=== PATIENT | male | born 1960 | race Hispanic/Latino ===

== ENCOUNTER 2018-07-17 19:08 | Emergency (ER) | payer OTHER ==
--- NOTE | 2018-07-17 20:39 | EDPHYS ---
Physician Documentation [facility] Name: Dev Evans Age: 57 yrs Sex: Male : 1960 Arrival Date: 07/17/2018 Time: 19:12 Bed 16 Private MD: ED Physician Ankit Bryan HPI: 07/17 20:39 This 57 yrs old Male presents to ER via Ambulatory with complaints of Back jr8 Pain, Leg Pain. 20:39 Patient came in with several complaints today. Stated that he bent over and felt a jr8 sharp pain to left lower back that is not going away. Denies urinary complaints, fevers, or abdominal pain. Stated that he also wants us to look at his legs because of the swelling he has had. Stated that it is chronic but wants to know why it comes and goes . Historical: - Allergies: 19:30 No Known Allergies; jb4 - Home Meds: 19:30 glipizide 10 mg Oral tab [Active]; tribedoce [Active]; aspirin 81 mg Oral chew jb4 [Active]; lisinopril 5 mg Oral tab [Active]; pioglitazone 30 mg oral tab [Active]; hydrochlorothiazide 50 mg Oral tab [Active]; Tradjenta 5 mg oral tab [Active]; Vitamin D2 50,000 unit oral cap [Active]; metformin 1,000 mg Oral tab [Active]; - PMHx: 19:30 Diabetes - NIDDM; Hypertension; Prostate Cancer; Hyperlipidemia; Hernia; jb4 - PSHx: 19:30 Hernia repair; Appendectomy; prostate; jb4 - Immunization history:: Adult Immunizations up to date, Flu vaccine is not up to date. - Social history:: Smoking status: Patient/guardian denies using tobacco, Patient/guardian denies using alcohol. - Ebola Screening: : No symptoms or risks identified at this time. ROS: 20:39 Eyes: Negative for injury, pain, redness, and discharge, ENT: Negative for injury, jr8 pain, and discharge, Neck: Negative for injury, pain, and swelling, Cardiovascular: Negative for chest pain, palpitations, and edema, Respiratory: Negative for shortness of breath, cough, wheezing, and pleuritic chest pain, Abdomen/GI: Negative for abdominal pain, nausea, vomiting, diarrhea, and constipation, Skin: Negative for injury, rash, and discoloration, Neuro: Negative for headache, weakness, numbness, tingling, and seizure. 20:39 Back: Positive for pain at rest, pain with movement, of the left low back. 20:39 MS/extremity: Positive for swelling, of the right leg and left leg. Exam: 20:39 Eyes: Pupils equal round and reactive to light, extra-ocular motions intact. Lids and jr8 lashes normal. Conjunctiva and sclera are non-icteric and not injected. Cornea within normal limits. Periorbital areas with no swelling, redness, or edema. ENT: Nares patent. No nasal discharge, no septal abnormalities noted. Tympanic membranes are normal and external auditory canals are clear. Oropharynx with no redness, swelling, or masses, exudates, or evidence of obstruction, uvula midline. Mucous membranes moist. Neck: Trachea midline, no thyromegaly or masses palpated, and no cervical lymphadenopathy. Supple, full range of motion without nuchal rigidity, or vertebral point tenderness. No Meningismus. Cardiovascular: Regular rate and rhythm with a normal S1 and S2. No gallops, murmurs, or rubs. Normal PMI, no JVD. No pulse deficits. Respiratory: Lungs have equal breath sounds bilaterally, clear to auscultation and percussion. No rales, rhonchi or wheezes noted. No increased work of breathing, no retractions or nasal flaring. Abdomen/GI: Soft, non-tender, with normal bowel sounds. No distension or tympany. No guarding or rebound. No evidence of tenderness throughout. Skin: Warm, dry with normal turgor. Normal color with no rashes, no lesions, and no evidence of cellulitis. Neuro: Awake and alert, GCS 15, oriented to person, place, time, and situation. Cranial nerves II-XII grossly intact. Motor strength 5/5 in all extremities. Sensory grossly intact. Cerebellar exam normal. Normal gait. 20:39 Back: pain, that is mild, of the left low back, ROM is painful, normal spinal alignment noted, CVA tenderness, is absent, vertebral tenderness, is not appreciated. 20:39 Musculoskeletal/extremity: ROM: intact in all extremities, Circulation is intact in all extremities. Sensation intact. DVT Exam: no pain, no tenderness, negative Homans' sign noted on exam, no appreciated bluish discoloration, no erythema, no increased warmth, Patient has mildly swollen lower extremities bilaterally. 2 + edema. Bronzing noted to both legs with varicosities that are not tender . Vital Signs: 19:30 BP 123 / 63; Pulse 79; Resp 16; Temp 98.3; Pulse Ox 100% on R/A; Weight 164.2 kg (R); jb4 Height 5 ft. 4 in. (162.56 cm) (R); Pain 9/10; 20:57 BP 120 / 63; Pulse 76; Resp 16; Pulse Ox 100% on R/A; jb4 19:30 Body Mass Index 62.14 (164.20 kg, 162.56 cm) jb4 MDM: 19:54 Patient medically screened. jr8 20:37 Data reviewed: vital signs, nurses notes, and as a result, I will discharge patient. jr Data interpreted: Pulse oximetry: on room air is 100 %. Interpretation: normal. Counseling: I had a detailed discussion with the patient and/or guardian regarding: the historical points, exam findings, and any diagnostic results supporting the discharge/admit diagnosis, the need for outpatient follow up, a orthopedic surgeon, Vein Specialist. 20:43 ED course: Referred patient to orthopedics for chronic knee pain. Told them to look for [facility] vein specialist for venous insufficiency. Otherwise will threat him for acute back pain . Administered Medications: No medications were administered Disposition: 07/17/18 20:38 Discharged to Home. Impression: Low back pain, Venous Stasis, Stasis Dermatitis. - Condition is Stable. - Discharge Instructions: Back Pain, Adult, Musculoskeletal Pain, Venous Stasis or Chronic Venous Insufficiency, Back Exercises, [id number], Heat Therapy. - Prescriptions for Robaxin 500 mg Oral Tablet - take 2 tablet by ORAL route every 6 hours As needed; 40 tablet. Tylenol- Codeine #3 300-30 mg Oral Tablet - take 2 tablet by ORAL route every 6 hours As needed; 30 tablet. - Medication Reconciliation Form, Thank You Letter, Antibiotic Education, Prescription Opioid Use form. - Follow up: Herman Marino MD; When: 2 - 3 days; Reason: Recheck today's complaints, Continuance of care, Re-evaluation by your physician. - Problem is new. - Symptoms have improved. Addendum: 07/21/2018 21:56 Co-signature as Attending Physician, Ankit Bryan MD. g s Signatures: Bentley Cordoba PA PA jr8 Raymond Rincon, RN RN jb4 Ankit Bryan MD MD Corrections: (The following items were deleted from the chart) 07/17 21:00 20:38 07/17/2018 20:38 Discharged to Home. Impression: Low back pain; Venous Stasis; jb4 Stasis Dermatitis. Condition is Stable. Forms are Medication Reconciliation Form, Thank You Letter, Antibiotic Education, Prescription Opioid Use. Follow up: Herman Marino; When: 2 - 3 days; Reason: Recheck today's complaints, Continuance of care, Re-evaluation by your physician. Problem is new. Symptoms have improved. jr8
--- NOTE | 2018-07-17 20:39 | ER ---
Nurse's Notes [facility] Name: Dev Evans Age: 57 yrs Sex: Male : 1960 Arrival Date: 07/17/2018 Time: 19:12 Bed 16 Private MD: Diagnosis: Low back pain;Venous Stasis;Stasis Dermatitis Presentation: 07/17 19:30 Presenting complaint: Patient states: I am having left lower back pain. Transition of jb4 care: patient was not received from another setting of care. 19:30 Method Of Arrival: Ambulatory jb4 19:30 Onset of symptoms was July 17, 2018. Risk Assessment: Do you want to hurt yourself or jb4 someone else? Patient reports no desire to harm self or others. Initial Sepsis Screen: Does the patient meet any 2 criteria? No. Patient's initial sepsis screen is negative. Does the patient have a suspected source of infection? No. Patient's initial sepsis screen is negative. Care prior to arrival: None. 19:30 Acuity: TAMMI 3 jb4 Historical: - Allergies: 19:30 No Known Allergies; jb4 - Home Meds: 19:30 glipizide 10 mg Oral tab [Active]; tribedoce [Active]; aspirin 81 mg Oral chew jb4 [Active]; lisinopril 5 mg Oral tab [Active]; pioglitazone 30 mg oral tab [Active]; hydrochlorothiazide 50 mg Oral tab [Active]; Tradjenta 5 mg oral tab [Active]; Vitamin D2 50,000 unit oral cap [Active]; metformin 1,000 mg Oral tab [Active]; - PMHx: 19:30 Diabetes - NIDDM; Hypertension; Prostate Cancer; Hyperlipidemia; Hernia; jb4 - PSHx: 19:30 Hernia repair; Appendectomy; prostate; jb4 - Immunization history:: Adult Immunizations up to date, Flu vaccine is not up to date. - Social history:: Smoking status: Patient/guardian denies using tobacco, Patient/guardian denies using alcohol. - Ebola Screening: : No symptoms or risks identified at this time. Screenin:30 Abuse screen: Denies injuries from another. Nutritional screening: No deficits noted. jb4 Tuberculosis screening: No symptoms or risk factors identified. Fall Risk Ambulatory Aid- Crutches/Cane/Walker (15 pts). Gait- Normal/Bed Rest/Wheelchair (0 pts) Mental Status- Oriented to own ability (0 pts). Total Santana Fall Scale indicates No Risk (0-24 pts). Assessment: 19:30 General: Appears uncomfortable, Behavior is calm, cooperative, appropriate for age. jb4 Pain: Complains of pain in left low back Pain does not radiate. Pain currently is 9 out of 10 on a pain scale. Quality of pain is described as stabbing. Neuro: Level of Consciousness is awake, alert, obeys commands, Oriented to person, place, time, situation. Cardiovascular: Patient's skin is warm and dry. Respiratory: Airway is patent Respiratory effort is even, unlabored, Respiratory pattern is regular, symmetrical. GI: No signs and/or symptoms were reported involving the gastrointestinal system. : No signs and/or symptoms were reported regarding the genitourinary system. EENT: No signs and/or symptoms were reported regarding the EENT system. Derm: Skin is intact, Skin is pink, warm \T\ dry. Musculoskeletal: Circulation, motion, and sensation intact. 20:30 Reassessment: Patient appears in no apparent distress at this time. Patient and/or jb4 family updated on plan of care and expected duration. Pain level reassessed. Patient is alert, oriented x 3, equal unlabored respirations, skin warm/dry/pink. 20:57 Reassessment: Pt is leaving ED with family, questions and concerns adressed. jb4 Vital Signs: 19:30 BP 123 / 63; Pulse 79; Resp 16; Temp 98.3; Pulse Ox 100% on R/A; Weight 164.2 kg (R); jb4 Height 5 ft. 4 in. (162.56 cm) (R); Pain 9/10; 20:57 BP 120 / 63; Pulse 76; Resp 16; Pulse Ox 100% on R/A; jb4 19:30 Body Mass Index 62.14 (164.20 kg, 162.56 cm) jb4 ED Course: 19:12 Patient arrived in ED. mr 19:27 Bentley Cordoba PA is PHCP. jr8 19:27 Ankit Bryan MD is Attending Physician. jr8 19:30 Arm band placed on left wrist. jb4 19:30 Patient has correct armband on for positive identification. Call light in reach. Pt jb4 sitting in walker with family at the bedside. Pulse ox on. NIBP on. 19:50 Raymond Rincon, RN is Primary Nurse. jb4 19:52 Triage completed. jb4 20:37 Herman Marino MD is Referral Physician. jr8 21:00 No provider procedures requiring assistance completed. Patient did not have IV access jb4 during this emergency room visit. Administered Medications: No medications were administered Outcome: 20:38 Discharge ordered by . jr8 21:00 Discharged to home ambulatory, with family. jb4 21:00 Condition: stable 21:00 Discharge instructions given to patient, family, Instructed on discharge instructions, follow up and referral plans. medication usage, Demonstrated understanding of instructions, follow-up care, medications, Prescriptions given X 2. 21:00 Patient left the ED. jb4 Signatures: Leslye Toscaon mr CordobaBentley, YAMILET PA jr8 Raymond Rincon, RN RN jb4
[2018-07-17 21:11] VITALS: TEMP 98.3; O2SAT 100
[2018-07-17 21:12] VITALS: BP 120/63
== END 2018-07-17 21:00 | disposition home or self-care (01) ==
LOC: ER 19:08
DX: I83.10 Varicose veins of unspecified lower extremity with inflammation (principal); I10 Essential (primary) hypertension; E11.9 Type 2 diabetes mellitus without complications; Z79.82 Long term (current) use of aspirin; Z85.46 Personal history of malignant neoplasm of prostate
CPT/HCPCS: 99283

== ENCOUNTER 2023-09-05 16:05 | Emergency (ER) | payer OTHER ==
--- OUTSIDE RECORDS SUMMARY | 2023-09-05 16:09 | XMS REPORT | Continuity of Care Document ---
Author Name Unknown Address [address] [facility] [address] [place] [address] [facility] thconnect Address [address] [facility]. [address] [place] [address] Care Team Providers Care Director Of Physical Security Name Role Phone PCP, PATIENT DOES NOT HAVE A Primary Care Physic wing Unavailable MELCHOR MURRAY Attending Clinician Unavailable MELCHOR MURRAY Attending Clinician Unavailable Doctor Unassigned, Suring Attending Clinician U ELIZABETH Quinn Attending Clinician Unavailable Elizabeth Coleman Attending Clinician [phone] Radiology Attending Clinician Unavailable RADIOLOGY Attending Clinician Unavailable 2, [facility] Attending Clinician Unavailable ORLY CATALAN Attending Clinician UnavailOrly Clements MD Attending Clinician [phone] Tess-Michaelo_A_AH Attending Clinician Unavailable ETHAN CISNEROS Attending Clinician Unavaillesly Pulido-Mbayo_A_AH Admitting Clinician Unavailable Payers Payer Name Policy Type Policy Number Effective Date Expirati on Date Source WELLCARE JOÃO PLUS CLASSIC/VALUE [id number] 2018 00:00:00 [employer] [place] (MEDICARE REPLACEMENT/ADVANT AGE - HMO) [id number] 2019 00:00:00 Problems Condition Name Condition Details Condition Category Status Onset Date Resolution Date Last Treatment Date Treating Clinician Comments Source No known active problems No known active problems Disease [facility] Pain in joint of left foot Pain in joint of left foot Diagnosis Active [facility] Pain in joint of right foot Pain in joint of right foot Diagnosis Active [facility] Closed displaced fracture of fifth metatarsal bone of left foot, initial encounter Closed displaced fracture of fifth metatarsal bone of left foot, initial encounter Diagnosis Active [facility] Closed displaced fracture of fourth metatarsal bone of right foot, initial encounter Closed displaced fracture of fourth metatarsal bone of right foot, initial encounter Diagnosis Active [facility] Closed displaced fracture of fifth metatarsal bone of right foot, initial encounter Closed displaced fracture of fifth metatarsal bone of right foot, initial encounter Diagnosis Active [facility] Allergies, Adverse Reactions, Alerts Allergy Name Allergy Type Status Severity Reaction(s) Onset Date Inactive Date Treating Clinician Comments Source NO KNOWN ALLERGIE S Drug Class Active [facility] Social History Social Habit Start Date Stop Date Quantity Comments Source Exposure to SARS-CoV-2 (event) Not sure [facility] Alcohol intake 2021-11-05 00:00:00 2021-11-05 00:00:00 0 /d [facility] Tobacco use and exposure 2019-05-18 00:00:00 2019-05-18 00:00:00 Smokeless tobacco non-user [facility] Sex Assigned At 1960 00:00:00 1960 00:00:00 [facility] Smoking Status Start Date Stop Date Source Never smoked tobacco [facility] Medications Ordered Medication Name Filled Medication Name Start Date Stop Date Current Medication? Ordering Clinician Indication Dosage Frequency Signature (SIG) Comments Components Source sodium hyaluronate (viscosup) (ORTHOVISC) injection 30 mg 2020-04 20:45: 00 04-03 22:35 :00 No [id number] 30mg [facility] SITAGLIPTIN PHOSPHATE (JANUVIA ORAL) 2020-04 13:40: 44 Yes Take by mouth. [facility] diclofenac 75 mg EC tablet 2018-04 00:00: 00 Yes 75mg Take 1 tablet by mouth 2 (two) times daily with meals. [facility] diclofenac 75 mg EC tablet 10-25 00:00: 00 Yes 75mg Take 1 tablet by mouth 2 (two) times daily with meals. [facility] glipiZIDE 10 mg tablet 10-13 00:00: 00 Yes TOME ROSALINA TABLETA POR V?A ORAL DOS VECES AL D?A [facility] tamsulosin (FLOMAX) 0.4 mg 24 hr capsule 12-05 00:00: 00 Yes TAKE ONE CAPSULE BY MOUTH EVERY DAY [facility] diclofenac (VOLTAREN) 75 mg EC tablet 11-07 00:00: 00 Yes 75mg Take 1 tablet by mouth 2 (two) times daily with meals. [facility] gabapentin (NEURONTIN) 600 mg tablet 10-31 00:00: 00 Yes TAKE 1 TABLET BY MOUTH THREE TIMES A DAY [facility] TRADJENTA 5 mg tablet 10-31 00:00: 00 Yes 1{tbl} Take 1 tablet by mouth every morning. [facility] glimepiride (AMARYL) 4 mg tablet 10-31 00:00: 00 Yes TAKE 1 TABLET BY MOUTH TWICE A DAY [facility] enalapril (VASOTEC) 10 mg tablet 10-24 00:00: 00 Yes TAKE 1 TABLET BY MOUTH 3 TIMES A DAY [facility] metFORMIN (GLUCOPHAGE ) 1,000 mg tablet 10-24 00:00: 00 Yes TAKE 1 TABLET BY MOUTH TWICE A DAY [facility] pravastatin (PRAVACHOL) 20 mg tablet 09-04 00:00: 00 Yes TABLET BY MOUTH ONCE A DAY [facility] Metformin HCl Metformin HCl Yes Josh Wise not defined [facility] Hydrochloro thiazide Hydrochloro thiazide Yes Josh Wise not defined [facility] Atorvastati n Calcium Atorvastati n Calcium Yes Josh Wise not defined [facility] Pioglitazon e HCl Pioglitazon e HCl Yes Josh Wise not defined [facility] Tradjenta Tradjenta Yes Josh Wise not defined [facility] GlipiZIDE GlipiZIDE Yes Josh Wise not defined [facility] Vital Signs Vital Name Observation Time Observation Value Comments Anselmo adams Systolic blood pressure 2021-04-03 19:41:00 120 mm[Hg[facility] Diastolic blood pressure 2021-04-03 19:41:00 68 mm[Hg] [facility] Heart rate 2021-04-03 19:41:00 87 /min [facility] Respiratory rate 2021-04-03 19:41:00 20 /min [facility] Body height 2021-04-03 19:41:00 152.4 cm [facility] Body weight 2021-04-03 19:41:00 153.452 kg [facility] BMI 2021-04-03 19:41:00 66.07 kg/m2 [facility] Oxygen saturation in Arterial blood by Pulse oximetry 2021-04-03 19:41:00 100 /min [facility] Procedures Procedure Date / Time Performed Performing Clinicia n Source REFERRAL- REQUEST/RESPONSE 2022-09-04 05:01:00 Doctor Unassigned, Suring [facility] OP CLINIC NOTES/CONSULTS 2021-03-12 06:01:00 Doctor Unassigned, Suring [facility] Encounters Start Date/Time End Date/Time Encounter Type Admission Type Attending [facility] Care Facility Care Department Encounter ID Source 2021-05-22 11:43:58 Outpatient [facility] [id number] [facility] 2021-05-22 11:34:31 Outpatient STLMLC ST[facility]MLC [id number] [facility] 2023-09-05 10:25:59 2023-09-05 10:25:59 Outpatient SFA SFA [id number] [place] 2023-09-02 09:43:22 2023-09-02 09:43:22 Outpatient SFA SFA [id number] [place] 2023-08-12 09:20:38 2023-08-12 09:20:38 Outpatient SFA SFA [id number] [place] 2023-08-04 10:36:45 2023-08-04 10:36:45 Outpatient SFA SFA [id number] [place] 2023-07-21 08:06:49 2023-07-21 08:06:49 Outpatient SFA SFA [id number] [place] 2023-07-17 11:20:32 2023-07-17 11:20:32 Outpatient SFA SFA [id number] [place] 2023-06-24 09:43:12 2023-06-24 09:43:12 Outpatient SFA SFA [id number] [place] 2023-06-10 09:32:20 2023-06-10 09:32:20 Outpatient SFA SFA [id number] [place] 2023-06-09 08:16:12 2023-06-09 08:16:12 Outpatient SFA SFA [id number] [place] 2023-05-22 08:35:19 2023-05-22 08:35:19 Outpatient SFA SFA [id number] [place] 2023-05-14 08:13:33 2023-05-14 08:13:33 Outpatient SFA SFA [id number] [place] 2023-05-13 08:18:45 2023-05-13 08:18:45 Outpatient SFA SFA [id number] [place] 2023-05-06 12:02:14 2023-05-06 12:02:14 Outpatient SFA SFA [id number] [place] 2023-04-16 09:35:01 2023-04-16 09:35:01 Outpatient SFA SFA [id number] [place] 2023-03-17 08:00:05 2023-03-17 08:00:05 Outpatient SFA SFA [id number] [place] 2023-03-16 14:30:27 2023-03-16 14:30:27 Outpatient SFA SFA [id number] [place] 2022-11-27 13:05:14 2022-11-27 13:05:14 Outpatient SFA SFA [id number] [place] 2022-11-26 13:59:55 2022-11-26 13:59:55 Outpatient SFA SFA [id number] [place] 2022-11-24 08:15:09 2022-11-24 08:15:09 Outpatient SFA SFA [id number] [place] 2022-11-18 13:05:25 2022-11-18 13:05:25 Outpatient SFA SFA [id number] [place] 2022-11-17 09:41:14 2022-11-17 09:41:14 Outpatient SFA SFA [id number] [place] 2022-10-21 08:11:20 2022-10-21 08:11:20 Outpatient SFA SFA [id number] [place] 2022-09-08 00:00:00 2022-09-08 00:00:00 Telephone Niurka [facility] [id number] 350.1.13.10 4.2.7.2.686 [id number] [facility] 2022-09-04 00:00:00 2022-09-04 00:00:00 Orders Only Doctor Unassigned, Suring [facility] 1.2.840.114 350.1.13.10 4.2.7.2.686 [id number] [facility] 2022-05-01 10:04:54 2022-05-01 10:04:54 Outpatient SFA SFA [id number] [place] 2022-04-11 09:50:09 2022-04-11 09:50:09 Outpatient SFA SFA [id number] [place] 2022-04-10 16:58:38 2022-04-10 16:58:38 Outpatient SFA SFA [id number] [place] 2022-02-14 08:44:20 2022-02-14 08:44:20 Outpatient SFA SFA [id number] [place] 2021-04-03 13:45:00 2021-04-03 15:07:03 Outpatient Sang MARMOLEJO ELIZABETH [facility] [id number] [facility] 2021-04-03 13:27:48 2021-04-03 15:07:03 Office Visit Francie [facility] 1.2.840.114 350.1.13.10 4.2.7.2.686 [id number] [facility] 2021-04-03 13:45:00 2021-04-03 13:45:00 Outpatient Sang MARMOLEJO ELIZABETH [facility] [id number] [facility] 2021-04-01 13:45:00 2021-04-01 13:45:00 Outpatient ELIZABETH SHAH [facility] [id number] [facility] 2021-03-27 14:45:00 2021-03-27 16:35:07 Outpatient ELIZABETH SHAH [facility] [id number] [facility] 2021-03-27 14:24:52 2021-03-27 16:35:07 Office Visit Francie [facility] 1.2.840.114 350.1.13.10 4.2.7.2.686 [id number] [facility] 2021-03-27 14:45:00 2021-03-27 14:45:00 Outpatient ELIZABETH SHAH [facility] [id number] [facility] 2021-03-25 14:30:00 2021-03-25 14:30:00 Outpatient ELIZABETH SHAH [facility] [id number] [facility] 2021-03-15 08:00:00 2021-03-15 08:00:00 Outpatient ELIZABETH SHAH [facility] [id number] [facility] 2021-03-15 08:00:00 2021-03-15 08:00:00 Outpatient R MARMOLEJO, [facility] [id number] [facility] 2021-03-15 07:40:23 2021-03-15 07:55:23 Office Visit Marmolejo [facility] 1.2.840.114 350.1.13.10 4.2.7.2.686 [id number] [facility] 2021-03-12 00:00:00 2021-03-12 00:00:00 Orders Only Doctor Unassigned, Suring [facility] 1.2840.114 350.1.13.10 4.2.7.2.686 [id number] [facility] 2021-03-12 00:00:00 2021-03-12 00:00:00 Telephone Francie [facility] 1..840.114 350.1.13.10 4.2.7.2.686 [id number] [facility] 2021-02-26 13:59:08 2021-02-26 15:13:32 Office Visit Fertile [facility] 1.2.840.114 350.1.13.10 4.2.7.2.686 [id number] [facility] 2021-02-26 14:45:00 2021-02-26 14:45:00 Outpatient R [facility] [id number] [facility] 2021-02-25 15:30:00 2021-02-25 15:30:00 Outpatient Sang [facility] [id number] [facility] 2021-02-22 00:00:00 2021-02-22 00:00:00 Orders Only Doctor Unassigned, Suring [facility] 1.2840.114 350.1.13.10 4.2.7.2.686 [id number] [facility] 2019-12-06 14:57:53 2019-12-06 23:59:00 Hospital Encounter Radiology [facility] 1.2.840.114 350.1.13.10 4.2.7.2.686 [id number] 2019-12-06 00:00:00 2019-12-06 00:00:00 Outpatient R RADIOLOGY [facility] [id number] [facility] 2019-12-06 00:00:00 2019-12-06 00:00:00 Orders Only Doctor Unassigned, Suring [facility] 1.2840.114 350.1.13.10 4.2.7.2.686 [id number] 2019-11-24 08:30:00 2019-11-24 08:30:00 Outpatient [facility] [id number] [facility] 2019-11-11 09:48:40 2019-11-11 10:03:40 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 2, [facility] 1.2840.114 350.1.13.10 4.2.7.2.686 [id number] 2019-11-11 08:30:00 2019-11-11 08:30:00 Outpatient R ORLY CATALAN [facility] [id number] [facility] 2019-11-11 08:12:50 2019-11-11 08:27:50 Office Visit Orly Catalan [facility] 1.2840.114 350.1.13.10 4.2.7.2.686 [id number] 2019-11-11 00:00:00 2019-11-11 00:00:00 Orders Only Doctor Unassigned, Suring [facility] 1.2840.114 350.1.13.10 4.2.7.2.686 [id number] 2019-06-15:14:00 2019-06-15 07:14:00 Outpatient Tess-Mbayo _A_AH VFP VFP [id number] 2019-06-15 07:14:00 2019-06-15 07:14:00 Outpatient Tess-Mbayo _A_AH VFP VFP [id number] [facility] 2019-05-18 13:45:00 2019-05-18 14:29:31 Outpatient ETHAN EDOUARD [facility] [id number] [facility] 2019-05-09 16:15:00 2019-05-09 16:19:10 Outpatient ELIZABETH SHAH [facility] [id number] [facility] 2019-05-02 13:45:00 2019-05-02 14:02:29 Outpatient ELIZABETH SHAH [facility] [id number] [facility] 2019-01-26 14:15:00 2019-01-26 14:40:36 Outpatient ETHAN EDOUARD [facility] [id number] [facility] Results Test Description Test Time Test Comments Results Result Co mments Source TSH, THIRD [id number] 04:14:44* Test Item Value Reference Range Interpretation Comme [facility] TSH, THIRD GENERATION (test code = 2821) 2.490 UIU/ML 0.400-4.100 UNLESS OTHERWISE INDICATED, ALL TESTING PERFORMED AT [facility] [address] [place] [address] LAUNDRY SUPERVISOR: DAMIÁN ELIZONDO M.D. CLIA NUMBER [id number] [facility] [place]. [id number] HEMOGLOBIN [id number] 02:37:23* Test Item Value Reference Range Interpretation Comme [facility] HEMOGLOBIN A1c (test code = 26187) 7.3 % 4.2-5.6 H [employer] GUIDELINES FOR HGB A1C: PREDIABETES/INCREASED RISK . . . . . . . 5.7-6.4% DIAGNOSIS OF DIABETES . . . . . . . . . >=6.5% WITH CONFIRMATION OR APPROPRIATE SYMPTOMS NOTE: ASSAY MAY BE AFFECTED BY HEMOGLOBINOPATHIES (SICKLE CELL ANEMIA, S-C DISEASE, OTHERS) OR ARTIFICIALLY LOWERED BY DECREASED RED CELL SURVIVAL (HEMOLYTIC ANEMIAS, BLOOD LOSS, ETC.). CONSIDER ALTERNATE TESTING OR LABORATORY CONSULTATION. [id number] 12:25:10* Test Item Value Reference Range Interpretation Comme [facility] D-DIMER (test code = 1405) 0.34 UG/ML FEU <=0.49 NOTE: Provided r eference range is established for evaluation of Deep Venous Thrombosis/Pulmonary Embolus (DVT/PE). Results below cutoff value of <=0.49 UG/ML FEU have a high negative predictive value forDVT/PE. No reference range is established for disseminatedintra-vascul ar coagulation (DIC). UNLESS OTHERWISE INDICATED, ALL TESTING PERFORMED AT [facility] [address] [place] [address] LAUNDRY SUPERVISOR: DAMIÁN ELIZONDO M.D. CLIA NUMBER [id number] [facility] [place]. [id number] THYROID II PROFILE (TU,T4,FTI,TSH)2023-03-18 06:28:43* Test Item Value Reference Range Interpretation Comme nts T-UPTAKE (test code = 2817) 30.2 % 24.3-39.0 THYROX. BIND. CAPAC. (test c ode = 66104) 1.1 0.8-1.3 T4 (THYROXINE) (test code = 2819) 8.3 UG/DL 4.5-10.5 CORRECTED T4 (FTI) (test cod e = 2820) 7.5 UG/DL 4.2-11.6 TSH, THIRD GENERATION (test code = 2821) 4.610 UIU/ML 0.400-4.100 H ALBUMIN/CREATININE RATIO, URINE, [id number] 05:26:06* Test Item Value Reference Range Interpretation Comme nts CREATININE, URINE, CONC. (test code = 2072) 166.8 MG/DL NOT ESTAB ALBUMIN, URINE, RANDOM (test code = 70296) 2.1 MG/DL NOT ESTAB CALC ALBUMIN/CREAT, RND (test code = 63334) 13 MG/G <30 Note: Albumin/Creatinine ratio reference interval reflects ADA and NKF guidelines. COMPREHENSIVE METABOLIC [id number] 03:58:08* Test Item Value Reference Range Interpretation Comme nts GLUCOSE (test code = 2217) 149 MG/DL 70-99 H BUN (test code = 2207) 22 MG/DL 8-23 CREATININE (test code = 221) 1.01 MG/DL 0.80-1.40 eGFR (2020 CKD-EPI) (test co de = 38277) 84 ML/MIN/1.73 >60 CALC BUN/CREAT (test code = 2235) 22 RATIO 6-28 SODIUM (test code = 223) 143 MEQ/L 133-146 POTASSIUM (test code = 222) 5.2 MEQ/L 3.5-5.4 CHLORIDE (test code = 221) 104 MEQ/L 95-107 CARBON DIOXIDE (test code = 2206) 28 MEQ/L 19-31 CALCIUM (test code = 220) 9.6 MG/DL 8.5-10.5 PROTEIN, TOTAL (test code = 222) 7.1 G/DL 6.1-8.3 ALBUMIN (test code = 220) 4.6 G/DL 3.5-5.2 CALC GLOBULIN (test code = 2240) 2.5 G/DL 1.9-3.7 CALC A/G RATIO (test code = 2234) 1.8 RATIO 1.0-2.6 BILIRUBIN, TOTAL (test code = 2207) 0.3 MG/DL <=1.2 ALKALINE PHOSPHATASE (test code = 220) 82 U/L 40-123 AST (test code = 2218) 20 U/L 9-50 ALT (test code = 2219) 19 U/L 5-50 LIPID [id number] 03:58:08* Test Item Value Reference Range Interpretation Comme nts CHOLESTEROL (test code = 2210) 290 MG/DL <200 H TRIGLYCERIDES (test code = 2232) 91 MG/DL <150 HDL CHOLESTEROL (test code = 2220) 87 MG/DL >39 CALC LDL CHOL (test code = 2237) 182 MG/DL <100 H NOTE: CALCULATED LDL IS BASED ON LEEROY-KHANNA METHOD WHICHINCLUDES ADJUSTABLE TRIGLYCERIDE:VLDL CHOLESTEROL RATIO.THIS FACTOR VARIES BY MEASURED TRIGLYCERIDE AND NON-HDLCHOLESTEROL CONCENTRATIONS WITH INCREASED CALCULATED LDL SEENIN HIGHER TRIGLYCERIDE OR LOWER NON-HDL SPECIMENS. FOR MOREINFORMATION, SEE CLIENT ANNOUNCEMENT AT [email or web address] RISK RATIO LDL/HDL (test code = 2238) 2.09 RATIO <3.55 HEMOGLOBIN [id number] 02:39:28* Test Item Value Reference Range Interpretation Comme nts HEMOGLOBIN A1c (test code = 34050) 7.1 % 4.2-5.6 H [employer] GUIDELINES FOR HGB A1C: PREDIABETES/INCREASED RISK . . . . . . . 5.7-6.4% DIAGNOSIS OF DIABETES . . . . . . . . . >=6.5% WITH CONFIRMATION OR APPROPRIATE SYMPTOMS NOTE: ASSAY MAY BE AFFECTED BY HEMOGLOBINOPATHIES (SICKLE CELL ANEMIA, S-C DISEASE, OTHERS) OR ARTIFICIALLY LOWERED BY DECREASED RED CELL SURVIVAL (HEMOLYTIC ANEMIAS, BLOOD LOSS, ETC.). CONSIDER ALTERNATE TESTING OR LABORATORY CONSULTATION. CBC W/AUTO DIFF WITH [id number] 01:56:24* Test Item Value Reference Range Interpretation Comme nts WBC (test code = 1001) 6.0 K/UL 3.5-11.0 RBC (test code = 1002) 4.49 M/UL 4.50-6.10 L HEMOGLOBIN (test code = 1003) 12.9 G/DL 13.5-17.0 L HEMATOCRIT (test code = 1004) 40.1 % 40.0-51.0 MCV (test code = 1005) 89.3 fL 80.0-99.0 MCH (test code = 1006) 28.7 PG 25.0-33.0 MCHC (test code = 1007) 32.2 G/DL 31.0-36.0 RDW (test code = 1038) 12.4 % 11.5-15.0 NEUTROPHILS (test code = 1008) 66.0 % LYMPHOCYTES (test code = 1010) 23.3 % MONOCYTES (test code = 1011) 7.9 % EOSINOPHILS (test code = 1012) 1.8 % BASOPHILS (test code = 1013) 0.5 % IMMATURE GRANULOCYTES (test code = 1036) 0.5 % NUCLEATED RBCS (test code = 1065) 0.0 /100 WBC'S See_Comment [Automated Path[employer] Platform[employer] ge] The system which generated this result transmitted reference range: 0.0. The reference range was not used to interpret this result as normal/abnormal. PLATELET COUNT (test code = 1015) 213 K/UL 130-400 ABSOLUTE NEUTROPHILS (test code = 1066) 3.94 K/UL 1.50-7.50 ABSOLUTE LYMPHOCYTES (test code = 1067) 1.39 K/UL 1.00-4.00 ABSOLUTE MONOCYTES (test code = 1068) 0.47 K/UL 0.20-1.00 ABSOLUTE EOSINOPHILS (test code = 1040) 0.11 K/UL 0.00-0.50 ABSOLUTE BASOPHILS (test code = 1069) 0.03 K/UL 0.00-0.20 ABS IMMATURE GRANULOCYTES (test code = 1020) 0.03 K/UL 0.00-0.10 ABS NUCLEATED RBCS (test code = 71856) 0.00 K/UL 0.00-0.11 CULTURE, [id number] 12:56:04SPECIMEN NUMBER: [id number] CULTURE, URINE SPECIMEN NUMBER: [id number] SPECIMEN COMMENT: URINE SOURCE: URINE REPORT STATUS: FINAL FINAL REPORT: 11/19/2022 10-50,000 CFU/ML UROGENITAL BRITTANY PRESENT NO C OMMON PATHOGENS UNLESS OTHERWISE INDICATED, ALL TESTING PERFORMED AT [facility] [address] [place] [address] LAUNDRY SUPERVISOR: DAMIÁN ELIZONDO M.D. CLIA NUMBER [id number] [facility] [place]. [id number] VITAMIN [id number] 06:43:59* Test Item Value Reference Range Interpretation Comme [facility] VITAMIN B-12 (test code = 2840) 1362 PG/ML 200-950 H VITAMIN D, 25 [id number] 03:44:26* Test Item Value Reference Range Interpretation Comme [facility] VITAMIN D, 25 OH (test code = 4958) 40 NG/ML SEE BELOW EFFECTIVE 12/2022, PLEASE NOTE NEW METHODOLOGY IS ELECTROCHEMILUMINESCENCE BINDING ASSAY. NOTE: 25-HYDROXYVITAMIN D ASSAY INCLUDES 25-HYDROXYVITAMIN D2 AND D3. INTERPRETIVE RANGES PEDIATRIC (<17 YEARS) . . . . . . . . . . . NG/ML 20-100ADULT: INSUFFICIENT . . . . . . . . . . . . . . NG/ML <20 SUBOPTIMAL . . . . . . . . . . . . . . . NG/ML 20-29 OPTIMAL . . . . . . . . . . . . . . . . . NG/ML 30-100 TSH, THIRD [id number] 03:44:15* Test Item Value Reference Range Interpretation Comme [facility] TSH, THIRD GENERATION (test code = 2821) 0.061 UIU/ML 0.400-4.100 L PSA, [id number] 03:44:15* Test Item Value Reference Range Interpretation Comme nts PSA, TOTAL (test code = 2606) <0.02 NG/ML See_Comment NOTE: Methodolog y is Josefina Malcom Electrochemiluminescence Immunoassay traceable to WHO reference standard 96/760. UNLESS OTHERWISE INDICATED, ALL TESTING PERFORMED AT [facility] [address] [place] [address] LAUNDRY SUPERVISOR: DAMIÁN ELIZONDO M.D. CLIA NUMBER [id number] [facility] [place]. [id number] [Automated message] The system which generated this result transmitted reference range: <=4.00. The reference range was not used to interpret this result as normal/abnormal. [id number] 03:44:08* Test Item Value Reference Range Interpretation Comme [facility] TESTOSTERONE (test code = 2830) 34 NG/DL 300-720 L [id number] 03:43:57* Test Item Value Reference Range Interpretation Comme [facility] MAGNESIUM (test code = 2226) 2.3 MG/DL 1.6-2.6 HEMOGLOBIN [id number] 02:50:35* Test Item Value Reference Range Interpretation Comme [facility] HEMOGLOBIN A1c (test code = 47652) 9.1 % 4.2-5.6 H [employer] GUIDELINES FOR HGB A1C: PREDIABETES/INCREASED RISK . . . . . . . 5.7-6.4% DIAGNOSIS OF DIABETES . . . . . . . . . >=6.5% WITH CONFIRMATION OR APPROPRIATE SYMPTOMS NOTE: ASSAY MAY BE AFFECTED BY HEMOGLOBINOPATHIES (SICKLE CELL ANEMIA, S-C DISEASE, OTHERS) OR ARTIFICIALLY LOWERED BY DECREASED RED CELL SURVIVAL (HEMOLYTIC ANEMIAS, BLOOD LOSS, ETC.). CONSIDER ALTERNATE TESTING OR LABORATORY CONSULTATION. ALBUMIN, URINE, [id number] 09:22:45* Test Item Value Reference Range Interpretation Comme [facility] ALBUMIN, URINE, RANDOM (test code = 31322) 2.0 MG/DL NOT ESTAB [facility] has impo rtant pathology staff changes effective 06/25/2022. New pathology staff will provide uninterrupted, excellent patient care and clinical consultation. See URL: [email or web address]. UNLESS OTHERWISE INDICATED, ALL TESTING PERFORMED AT [facility] [address] [place] [address] LAUNDRY SUPERVISOR: DAMIÁN ELIZONDO M.D. CLIA NUMBER [id number] [facility] [place]. [id number] TSH, THIRD [id number] 06:34:57* Test Item Value Reference Range Interpretation Comme nts TSH, THIRD GENERATION (test code = 2821) 0.045 UIU/ML 0.400-4.100 L LIPID [id number] 05:20:29* Test Item Value Reference Range Interpretation Comme nts CHOLESTEROL (test code = 2210) 201 MG/DL <200 H TRIGLYCERIDES (test code = 2232) 126 MG/DL <150 HDL CHOLESTEROL (test code = 2220) 68 MG/DL >39 CALC LDL CHOL (test code = 2237) 109 MG/DL <100 H NOTE: CALCULATED LDL IS BASED ON LEEROY-KHANNA METHOD WHICHINCLUDES ADJUSTABLE TRIGLYCERIDE:VLDL CHOLESTEROL RATIO.THIS FACTOR VARIES BY MEASURED TRIGLYCERIDE AND NON-HDLCHOLESTEROL CONCENTRATIONS WITH INCREASED CALCULATED LDL SEENIN HIGHER TRIGLYCERIDE OR LOWER NON-HDL SPECIMENS. FOR MOREINFORMATION, SEE CLIENT ANNOUNCEMENT AT [email or web address] RATIO LDL/HDL (test code = 2238) 1.60 RATIO <3.55 COMPREHENSIVE METABOLIC [id number] 05:20:29* Test Item Value Reference Range Interpretation Comme nts GLUCOSE (test code = 2217) 147 MG/DL 70-99 H BUN (test code = 2208) 21 MG/DL 8-23 CREATININE (test code = 2214) 0.97 MG/DL 0.80-1.40 eGFR (2020 CKD-EPI) (test code = 86857) 88 ML/MIN/1.73 >60 CALC BUN/CREAT (test code = 2235) 22 RATIO 6-28 SODIUM (test code = 2231) 142 MEQ/L 133-146 POTASSIUM (test code = 2228) 4.9 MEQ/L 3.5-5.4 CHLORIDE (test code = 2215) 105 MEQ/L 95-107 CARBON DIOXIDE (test code = 2206) 26 MEQ/L 19-31 CALCIUM (test code = 2208) 10.0 MG/DL 8.5-10.5 PROTEIN, TOTAL (test code = 2228) 6.7 G/DL 6.1-8.3 ALBUMIN (test code = 2200) 4.2 G/DL 3.5-5.2 CALC GLOBULIN (test code = 2239) 2.5 G/DL 1.9-3.7 CALC A/G RATIO (test code = 2233) 1.7 RATIO 1.0-2.6 BILIRUBIN, TOTAL (test code = 2206) 0.2 MG/DL See_Comment [Automated me ssage] The system which generated this result transmitted reference range: <=1.2. The reference range was not used to interpret this result as normal/abnormal. ALKALINE PHOSPHATASE (test code = 2203) 89 U/L 40-123 AST (test code = 2217) 23 U/L 9-50 ALT (test code = 2218) 24 U/L 5-50 HEMOGLOBIN [id number] 03:27:04* Test Item Value Reference Range Interpretation Comme nts HEMOGLOBIN A1c (test code = 69738) 7.2 % 4.2-5.6 H [employer] GUIDELINES FOR HGB A1C: PREDIABETES/INCREASED RISK . . . . . . . 5.7-6.4% DIAGNOSIS OF DIABETES . . . . . . . . . >=6.5% WITH CONFIRMATION OR APPROPRIATE SYMPTOMS NOTE: ASSAY MAY BE AFFECTED BY HEMOGLOBINOPATHIES (SICKLE CELL ANEMIA, S-C DISEASE, OTHERS) OR ARTIFICIALLY LOWERED BY DECREASED RED CELL SURVIVAL (HEMOLYTIC ANEMIAS, BLOOD LOSS, ETC.). CONSIDER ALTERNATE TESTING OR LABORATORY CONSULTATION. CBC W/AUTO DIFF WITH [id number] 03:07:08* Test Item Value Reference Range Interpretation Comme nts WBC (test code = 1001) 6.6 K/UL 3.5-11.0 RBC (test code = 1002) 4.31 M/UL 4.50-6.10 L HEMOGLOBIN (test code = 1003) 11.8 G/DL 13.5-17.0 L HEMATOCRIT (test code = 1004) 36.3 % 40.0-51.0 L MCV (test code = 1005) 84.2 fL 80.0-99.0 MCH (test code = 1006) 27.4 PG 25.0-33.0 MCHC (test code = 1007) 32.5 G/DL 31.0-36.0 RDW (test code = 1038) 12.3 % 11.5-15.0 NEUTROPHILS (test code = 1008) 64.5 % LYMPHOCYTES (test code = 1010) 25.2 % MONOCYTES (test code = 1011) 8.1 % EOSINOPHILS (test code = 1012) 1.4 % BASOPHILS (test code = 1013) 0.5 % IMMATURE GRANULOCYTES (test code = 1036) 0.3 % NUCLEATED RBCS (test code = 1065) 0.0 /100 WBC'S See_Comment [Automated messa ge] The system which generated this result transmitted reference range: 0.0. The reference range was not used to interpret this result as normal/abnormal. PLATELET COUNT (test code = 1015) 200 K/UL 130-400 ABSOLUTE NEUTROPHILS (test code = 1066) 4.29 K/UL 1.50-7.50 ABSOLUTE LYMPHOCYTES (test code = 1067) 1.67 K/UL 1.00-4.00 ABSOLUTE MONOCYTES (test code = 1068) 0.54 K/UL 0.20-1.00 ABSOLUTE EOSINOPHILS (test code = 1040) 0.09 K/UL 0.00-0.50 ABSOLUTE BASOPHILS (test code = 1069) 0.03 K/UL 0.00-0.20 ABS IMMATURE GRANULOCYTES (test code = 1020) 0.02 K/UL 0.00-0.10 ABS NUCLEATED RBCS (test code = 79520) 0.00 K/UL 0.00-0.11 TSH, THIRD [id number] 06:55:19* Test Item Value Reference Range Interpretation Comme nts TSH, THIRD GENERATION (test code = 2821) <0.010 UIU/ML 0.400-4.100 L [id number] 05:06:12* Test Item Value Reference Range Interpretation Comme nts MAGNESIUM (test code = 2226) 2.2 MG/DL 1.6-2.6 UNLESS OTHERWISE INDICATED, ALL TESTING PERFORMED [facility] [address] [place] [address] LAUNDRY SUPERVISOR: AMOS ASENCIO M.D. CLIA NUMBER [id number] [facility] [place]. [id number] COMPREHENSIVE METABOLIC [id number] 05:05:57* Test Item Value Reference Range Interpretation Comme nts GLUCOSE (test code = 2216) 240 MG/DL 70-99 H BUN (test code = 2207) 17 MG/DL 8-23 CREATININE (test code = 2213) 0.84 MG/DL 0.80-1.40 eGFR (2020 CKD-EPI) (test code = 72088) 99 ML/MIN/1.73 >60 CALC BUN/CREAT (test code = 2234) 20 RATIO 6-28 SODIUM (test code = 2230) 140 MEQ/L 133-146 POTASSIUM (test code = 2227) 4.5 MEQ/L 3.5-5.4 CHLORIDE (test code = 2214) 103 MEQ/L 95-107 CARBON DIOXIDE (test code = 2205) 27 MEQ/L 19-31 CALCIUM (test code = 2208) 9.4 MG/DL 8.5-10.5 PROTEIN, TOTAL (test code = 2228) 6.6 G/DL 6.1-8.3 ALBUMIN (test code = 2200) 4.3 G/DL 3.5-5.2 CALC GLOBULIN (test code = 0) 2.3 G/DL 1.9-3.7 CALC A/G RATIO (test code = 2233) 1.9 RATIO 1.0-2.6 BILIRUBIN, TOTAL (test code = 2206) 0.3 MG/DL See_Comment [Automated me ssage] The system which generated this result transmitted reference range: <=1.2. The reference range was not used to interpret this result as normal/abnormal. ALKALINE PHOSPHATASE (test code = 2203) 94 U/L 40-123 AST (test code = 2217) 54 U/L 9-50 H ALT (test code = 9) 32 U/L 5-50 HEMOGLOBIN [id number] 03:41:37* Test Item Value Reference Range Interpretation Comme [facility] HEMOGLOBIN A1c (test code = 30932) 7.1 % 4.2-5.6 H [employer] GUIDELINES FOR HGB A1C: PREDIABETES/INCREASED RISK . . . . . . . 5.7-6.4% DIAGNOSIS OF DIABETES . . . . . . . . . >=6.5% WITH CONFIRMATION OR APPROPRIATE SYMPTOMS NOTE: ASSAY MAY BE AFFECTED BY HEMOGLOBINOPATHIES (SICKLE CELL ANEMIA, S-C DISEASE, OTHERS) OR ARTIFICIALLY LOWERED BY DECREASED RED CELL SURVIVAL (HEMOLYTIC ANEMIAS, BLOOD LOSS, ETC.). CONSIDER ALTERNATE TESTING OR LABORATORY CONSULTATION. CBC W/AUTO DIFF WITH [id number] 02:40:00* Test Item Value Reference Range Interpretation Comme nts WBC (test code = 1001) 5.8 K/UL 3.5-11.0 RBC (test code = 1002) 4.44 M/UL 4.50-6.10 L HEMOGLOBIN (test code = 1003) 11.9 G/DL 13.5-17.0 L HEMATOCRIT (test code = 1004) 38.2 % 40.0-51.0 L MCV (test code = 1005) 86.0 fL 80.0-99.0 MCH (test code = 1006) 26.8 PG 25.0-33.0 MCHC (test code = 1007) 31.2 G/DL 31.0-36.0 RDW (test code = 1038) 12.1 % 11.5-15.0 NEUTROPHILS (test code = 1008) 69.3 % LYMPHOCYTES (test code = 1010) 21.9 % MONOCYTES (test code = 1011) 6.3 % EOSINOPHILS (test code = 1012) 1.7 % BASOPHILS (test code = 1013) 0.5 % IMMATURE GRANULOCYTES (test code = 1036) 0.3 % NUCLEATED RBCS (test code = 1065) 0.0 /100 WBC'S See_Comment [Automated [employer] Platform[employer] ge] The system which generated this result transmitted reference range: 0.0. The reference range was not used to interpret this result as normal/abnormal. PLATELET COUNT (test code = 1015) 184 K/UL 130-400 ABSOLUTE NEUTROPHILS (test code = 1066) 3.98 K/UL 1.50-7.50 ABSOLUTE LYMPHOCYTES (test code = 1067) 1.26 K/UL 1.00-4.00 ABSOLUTE MONOCYTES (test code = 1068) 0.36 K/UL 0.20-1.00 ABSOLUTE EOSINOPHILS (test code = 1040) 0.10 K/UL 0.00-0.50 ABSOLUTE BASOPHILS (test code = 1069) 0.03 K/UL 0.00-0.20 ABS IMMATURE GRANULOCYTES (test code = 1020) 0.02 K/UL 0.00-0.10 ABS NUCLEATED RBCS (test code = 07843) 0.00 K/UL 0.00-0.11 PSA, [id number] 01:43:21* Test Item Value Reference Range Interpretation Comme nts PSA, TOTAL (test code = 2606) <0.02 NG/ML See_Comment NOTE: Methodolog y is Josefina Malcom Electrochemiluminescence Immunoassay traceable to WHO reference standard 96/760. UNLESS OTHERWISE INDICATED, ALL TESTING PERFORMED [facility] [employer] [address] [place] [address] LAUNDRY SUPERVISOR: AMOS ASENCIO M.D. CLIA NUMBER [id number] [place]. [id number] [Automated message] The system which generated this result transmitted reference range: <=4.00. The reference range was not used to interpret this result as normal/abnormal. [id number] 06:05:25* Test Item Value Reference Range Interpretation Comme [facility] TESTOSTERONE (test code = 2830) 52 NG/DL 300-720 L VITAMIN D, 25 [id number] 06:41:34* Test Item Value Reference Range Interpretation Comme nts VITAMIN D, 25 OH (test code = 4958) 41 NG/ML SEE BELOW NOTE: 25-HYDR OXYVITAMIN D ASSAY INCLUDES 25-HYDROXYVITAMIN D2 AND D3. METHODOLOGY IS CHEMILUMINESCENT IMMUNOASSAY. INTERPRETIVE RANGES PEDIATRIC (<17 YEARS) . . . . . . . . . . . NG/ML 20-100ADULT: INSUFFICIENT . . . . . . . . . . . . . . NG/ML <20 SUBOPTIMAL . . . . . . . . . . . . . . . NG/ML 20-29 OPTIMAL . . . . . . . . . . . . . . . . . NG/ML 30-100 UNLESS OTHERWISE INDICATED, ALL TESTING PERFORMED [employer] [employer] [address] [place] [address] LAUNDRY SUPERVISOR: AMOS ASENCIO M.D. CLIA NUMBER [id number] [place]. [id number] 06:13:45* Test Item Value Reference Range Interpretation Comme [facility] TESTOSTERONE (test code = 2830) 68 NG/DL 300-720 L VITAMIN [id number] 06:13:02* Test Item Value Reference Range Interpretation Comme [facility] VITAMIN B-12 (test code = 2840) 1515 PG/ML 200-950 H TSH, THIRD [id number] 06:13:02* Test Item Value Reference Range Interpretation Comme [facility] TSH, THIRD GENERATION (test code = 2821) <0.010 UIU/ML 0.400-4.100 L URIC [id number] 04:07:46* Test Item Value Reference Range Interpretation Comme [facility] URIC ACID (test code = 2233) 7.4 MG/DL 3.7-8.0 COMPREHENSIVE METABOLIC [id number] 04:07:46* Test Item Value Reference Range Interpretation [facility] GLUCOSE (test code = 2217) 129 MG/DL 70-99 H BUN (test code = 2207) 21 MG/DL 8-23 CREATININE (test code = 2214) 0.84 MG/DL 0.80-1.40 eGFR (2020 CKD-EPI) (test code = 92694) 99 ML/MIN/1.73 >60 CALC BUN/CREAT (test code = 2235) 25 RATIO 6-28 SODIUM (test code = 223) 141 MEQ/L 133-146 POTASSIUM (test code = 2228) 4.7 MEQ/L 3.5-5.4 CHLORIDE (test code = 2215) 104 MEQ/L 95-107 CARBON DIOXIDE (test code = 2206) 27 MEQ/L 19-31 CALCIUM (test code = 2209) 9.9 MG/DL 8.5-10.5 PROTEIN, TOTAL (test code = 222) 6.9 G/DL 6.1-8.3 ALBUMIN (test code = 2201) 4.2 G/DL 3.5-5.2 CALC GLOBULIN (test code = 2240) 2.7 G/DL 1.9-3.7 CALC A/G RATIO (test code = 223) 1.6 RATIO 1.0-2.6 BILIRUBIN, TOTAL (test code = 2206) 0.5 MG/DL See_Comment [Automated me ssage] The system which generated this result transmitted reference range: <=1.2. The reference range was not used to interpret this result as normal/abnormal. ALKALINE PHOSPHATASE (test code = 2204) 102 U/L 40-123 AST (test code = 2218) 22 U/L 9-50 ALT (test code = 2219) 23 U/L 5-50 CBC W/AUTO DIFF WITH [id number] 03:09:24* Test Item Value Reference Range Interpretation Comme nts WBC (test code = 1001) 6.2 K/UL 3.5-11.0 RBC (test code = 1002) 4.35 M/UL 4.50-6.10 L HEMOGLOBIN (test code = 1003) 11.9 G/DL 13.5-17.0 L HEMATOCRIT (test code = 1004) 36.4 % 40.0-51.0 L MCV (test code = 1005) 83.7 fL 80.0-99.0 MCH (test code = 1006) 27.4 PG 25.0-33.0 MCHC (test code = 1007) 32.7 G/DL 31.0-36.0 RDW (test code = 1038) 11.9 % 11.5-15.0 NEUTROPHILS (test code = 1008) 58.8 % LYMPHOCYTES (test code = 1010) 29.1 % MONOCYTES (test code = 1011) 9.0 % EOSINOPHILS (test code = 1012) 2.3 % BASOPHILS (test code = 1013) 0.3 % IMMATURE GRANULOCYTES (test code = 1036) 0.5 % NUCLEATED RBCS (test code = 1065) 0.0 /100 WBC'S See_Comment [Automated messa ge] The system which generated this result transmitted reference range: 0.0. The reference range was not used to interpret this result as normal/abnormal. PLATELET COUNT (test code = 1015) 230 K/UL 130-400 ABSOLUTE NEUTROPHILS (test code = 1066) 3.66 K/UL 1.50-7.50 ABSOLUTE LYMPHOCYTES (test code = 1067) 1.81 K/UL 1.00-4.00 ABSOLUTE MONOCYTES (test code = 1068) 0.56 K/UL 0.20-1.00 ABSOLUTE EOSINOPHILS (test code = 1040) 0.14 K/UL 0.00-0.50 ABSOLUTE BASOPHILS (test code = 1069) 0.02 K/UL 0.00-0.20 ABS IMMATURE GRANULOCYTES (test code = 1020) 0.03 K/UL 0.00-0.10 ABS NUCLEATED RBCS (test code = 96719) 0.00 K/UL 0.00-0.11 PSA, [id number] 06:16:09* Test Item Value Reference Range Interpretation Comme nts PSA, TOTAL (test code = 2606) <0.02 NG/ML See_Comment NOTE: Methodolog y is Josefina Malcom Electrochemiluminescence Immunoassay traceable to WHO reference standard 96/760. UNLESS OTHERWISE INDICATED, ALL TESTING [facility]FORMED [facility] [employer] [address] [place] [address] LAUNDRY SUPERVISOR: AMOS ASENCIO M.D. CLIA NUMBER [id number] [place]. [id number] [Automated message] The system which generated this result transmitted reference range: <=4.00. The reference range was not used to interpret this result as normal/abnormal. COMPREHENSIVE METABOLIC [id number] 05:08:39* Test Item Value Reference Range Interpretation Comme nts GLUCOSE (test code = 7) 114 MG/DL 70-99 H BUN (test code = 8) 18 MG/DL 8-23 CREATININE (test code = 2214) 0.74 MG/DL 0.80-1.40 L eGFR (2020 CKD-EPI) (test code = 06775) 103 ML/MIN/1.73 >60 CALC BUN/CREAT (test code = 2235) 24 RATIO 6-28 SODIUM (test code = 2231) 143 MEQ/L 133-146 POTASSIUM (test code = 2228) 4.9 MEQ/L 3.5-5.4 CHLORIDE (test code = 2215) 103 MEQ/L 95-107 CARBON DIOXIDE (test code = 2206) 28 MEQ/L 19-31 CALCIUM (test code = 2209) 9.9 MG/DL 8.5-10.5 PROTEIN, TOTAL (test code = 2229) 6.9 G/DL 6.1-8.3 ALBUMIN (test code = 2201) 4.6 G/DL 3.5-5.2 CALC GLOBULIN (test code = 2240) 2.3 G/DL 1.9-3.7 CALC A/G RATIO (test code = 2234) 2.0 RATIO 1.0-2.6 BILIRUBIN, TOTAL (test code = 7) 0.2 MG/DL See_Comment [Automated me ssage] The system which generated this result transmitted reference range: <=1.2. The reference range was not used to interpret this result as normal/abnormal. ALKALINE PHOSPHATASE (test code = 4) 107 U/L 40-123 AST (test code = 2218) 25 U/L 9-50 ALT (test code = 2219) 23 U/L 5-50 LIPID [id number] 05:08:39* Test Item Value Reference Range Interpretation Comme nts CHOLESTEROL (test code = 2210) 187 MG/DL <200 TRIGLYCERIDES (test code = 2232) 99 MG/DL <150 HDL CHOLESTEROL (test code = 2220) 64 MG/DL >39 CALC LDL CHOL (test code = 2237) 104 MG/DL <100 H NOTE: CALCULATED LDL IS BASED ON LEEROY-KHANNA METHOD WHICHINCLUDES ADJUSTABLE TRIGLYCERIDE:VLDL CHOLESTEROL RATIO.THIS FACTOR VARIES BY MEASURED TRIGLYCERIDE AND NON-HDLCHOLESTEROL CONCENTRATIONS WITH INCREASED CALCULATED LDL SEENIN HIGHER TRIGLYCERIDE OR LOWER NON-HDL SPECIMENS. FOR MOREINFORMATION, SEE CLIENT ANNOUNCEMENT AT [email or web address] RATIO LDL/HDL (test code = 2238) 1.63 RATIO <3.55 CBC W/AUTO DIFF WITH [id number] 02:52:40* Test Item Value Reference Range Interpretation Comme nts WBC (test code = 1001) 6.8 K/UL 3.5-11.0 RBC (test code = 1002) 4.30 M/UL 4.50-6.10 L HEMOGLOBIN (test code = 1003) 11.6 G/DL 13.5-17.0 L HEMATOCRIT (test code = 1004) 35.5 % 40.0-51.0 L MCV (test code = 1005) 82.6 fL 80.0-99.0 MCH (test code = 1006) 27.0 PG 25.0-33.0 MCHC (test code = 1007) 32.7 G/DL 31.0-36.0 RDW (test code = 1038) 12.8 % 11.5-15.0 NEUTROPHILS (test code = 1008) 64.0 % LYMPHOCYTES (test code = 1010) 23.6 % MONOCYTES (test code = 1011) 9.6 % EOSINOPHILS (test code = 1012) 2.2 % BASOPHILS (test code = 1013) 0.3 % IMMATURE GRANULOCYTES (test code = 1036) 0.3 % NUCLEATED RBCS (test code = 1065) 0.0 /100 WBC'S See_Comment [[employer]] The system which generated this result transmitted reference range: 0.0. The reference range was not used to interpret this result as normal/abnormal. PLATELET COUNT (test code = 1015) 199 K/UL 130-400 ABSOLUTE NEUTROPHILS (test code = 1066) 4.33 K/UL 1.50-7.50 ABSOLUTE LYMPHOCYTES (test code = 1067) 1.60 K/UL 1.00-4.00 ABSOLUTE MONOCYTES (test code = 1068) 0.65 K/UL 0.20-1.00 ABSOLUTE EOSINOPHILS (test code = 1040) 0.15 K/UL 0.00-0.50 ABSOLUTE BASOPHILS (test code = 1069) 0.02 K/UL 0.00-0.20 ABS IMMATURE GRANULOCYTES (test code = 1020) 0.02 K/UL 0.00-0.10 ABS NUCLEATED RBCS (test code = 69764) 0.00 K/UL 0.00-0.11 TSH, THIRD [id number] 06:54:41* Test Item Value Reference Range Interpretation Comme [facility] TSH, THIRD GENERATION (test code = 2821) <0.010 UIU/ML 0.400-4.100 L UNLESS OTHERWISE INDICATED, ALL TESTING PERFORMED [facility] [address] [place] [address] LAUNDRY SUPERVISOR: AMOS ASENCIO M.D. CLIA NUMBER [id number] [facility] [place]. [id number] VITAMIN D, 25 [id number] 08:20:12* Test Item Value Reference Range Interpretation Comme [facility] VITAMIN D, 25 OH (test code = 4958) 39 NG/ML SEE BELOW NOTE: 25-HYDR OXYVITAMIN D ASSAY INCLUDES 25-HYDROXYVITAMIN D2 AND D3. METHODOLOGY IS CHEMILUMINESCENT IMMUNOASSAY. INTERPRETIVE RANGES PEDIATRIC (<17 YEARS) . . . . . . . . . . . NG/ML 20-100ADULT: INSUFFICIENT . . . . . . . . . . . . . . NG/ML <20 SUBOPTIMAL . . . . . . . . . . . . . . . NG/ML 20-29 OPTIMAL . . . . . . . . . . . . . . . . . NG/ML 30-100 CBC W/AUTO DIFF WITH [id number] 05:32:58* Test Item Value Reference Range Interpretation Comme nts WBC (test code = 1001) 7.0 K/UL 3.5-11.0 RBC (test code = 1002) 4.34 M/UL 4.50-6.10 L HEMOGLOBIN (test code = 1003) 11.9 G/DL 13.5-17.0 L HEMATOCRIT (test code = 1004) 35.7 % 40.0-51.0 L MCV (test code = 1005) 82.3 fL 80.0-99.0 MCH (test code = 1006) 27.4 PG 25.0-33.0 MCHC (test code = 1007) 33.3 G/DL 31.0-36.0 RDW (test code = 1038) 12.4 % 11.5-15.0 NEUTROPHILS (test code = 1008) 65.5 % NOTE: EFFECTIVE 03/18/2021, REFERENCE INTERVALS AND FLAGGING FORRELATIVE (%) WBC DIFFERENTIAL WILL BE ELIMINATED REDUNDANT TOABSOLUTE COUNTS.SEE [email or web address] te LYMPHOCYTES (test code = 1010) 24.0 % MONOCYTES (test code = 1011) 7.9 % EOSINOPHILS (test code = 1012) 2.0 % BASOPHILS (test code = 1013) 0.3 % IMMATURE GRANYLOCYTES (test code = 1036) 0.3 % NUCLEATED RBCS (test code = 1065) 0.0 /100 WBC'S See_Comment [Automated message] The system which generated this result transmitted reference range: 0.0. The reference range was not used to interpret this result as normal/abnormal. PLATELET COUNT (test code = 1015) 232 K/UL 130-400 ABSOLUTE NEUTROPHILS (test code = 1066) 4.55 K/UL 1.50-7.50 ABSOLUTE LYMPHOCYTES (test code = 1067) 1.67 K/UL 1.00-4.00 ABSOLUTE MONOCYTES (test code = 1068) 0.55 K/UL 0.20-1.00 ABSOLUTE EOSINOPHILS (test code = 1040) 0.14 K/UL 0.00-0.50 ABSOLUTE BASOPHILS (test code = 1069) 0.02 K/UL 0.00-0.20 ABS IMMATURE GRANULOCYTES (test code = 1020) 0.02 K/UL 0.00-0.10 ABS NUCLEATED RBCS (test code = 28272) 0.00 K/UL 0.00-0.11 COMPREHENSIVE METABOLIC [id number] 04:40:50* Test Item Value Reference Range Interpretation Comme nts GLUCOSE (test code = 2217) 116 MG/DL 70-99 H BUN (test code = 2208) 18 MG/DL 8-23 CREATININE (test code = 2214) 0.67 MG/DL 0.80-1.40 L EFFECTIVE 04/08/2021, [facility] HAS IMPLEMENTED THE NKF-ASN RECOMMENDED KD-EPI EGFR REFIT CALCULATION THAT DOES NOT INCLUDE A COEFFICIENT FORRACE. FOR MORE INFORMATION, SEE ANNOUNCEMENT [email or web address] (2020 CKD-EPI) (test code = 89883) 106 ML/MIN/1.73 >60 CALC BUN/CREAT (test code = 223) 27 RATIO 6-28 SODIUM (test code = 223) 141 MEQ/L 133-146 POTASSIUM (test code = 2228) 4.9 MEQ/L 3.5-5.4 CHLORIDE (test code = 2215) 104 MEQ/L 95-107 CARBON DIOXIDE (test code = 2206) 26 MEQ/L 19-31 CALCIUM (test code = 2209) 9.8 MG/DL 8.5-10.5 PROTEIN, TOTAL (test code = 222) 6.9 G/DL 6.1-8.3 ALBUMIN (test code = 220) 4.2 G/DL 3.5-5.2 CALC GLOBULIN (test code = 2240) 2.7 G/DL 1.9-3.7 CALC A/G RATIO (test code = 2234) 1.6 RATIO 1.0-2.6 BILIRUBIN, TOTAL (test code = 2207) 0.4 MG/DL See_Comment [Automated me ssage] The system which generated this result transmitted reference range: <=1.2. The reference range was not used to interpret this result as normal/abnormal. ALKALINE PHOSPHATASE (test code = 220) 99 U/L 40-123 AST (test code = 2218) 25 U/L 9-50 ALT (test code = 2219) 33 U/L 5-50 VITAMIN [id number] 04:22:54* Test Item Value Reference Range Interpretation Comme nts VITAMIN B-12 (test code = 2840) 1266 PG/ML 200-950 H TSH, THIRD [id number] 04:22:54* Test Item Value Reference Range Interpretation Comme [facility] TSH, THIRD GENERATION (test code = 2821) <0.010 UIU/ML 0.400-4.100 L UNLESS OTHERWISE INDICATED, ALL TESTING [facility]FOR[facility] [address] [place] [id number] [employer] SUPERVISOR: AMOS ASENCIO M.D. CLIA NUMBER [id number] [facility] [place]. [id number]
--- NOTE | 2023-09-05 16:51 | RAD REPORT ---
EXAM DESCRIPTION: RAD - Shoulder Left 2 View - 09/05/2023 4:39 pm CLINICAL HISTORY: PAIN COMPARISON: No comparisons FINDINGS: Mild AC joint and glenohumeral joint arthritic changes. Full assessment is limited by body habitus artifact. No gross fracture seen.
--- NOTE | 2023-09-05 16:55 | RAD REPORT ---
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 Diffuse osteopeni a. No fracture or dislocation. Small joint effusion.
[2023-09-05] MEDS ORDERED: KETOROLAC 30 MG/ML INJ ONE (17:11)
--- NOTE | 2023-09-05 17:52 | RAD REPORT ---
EXAM DESCRIPTION: RAD - Chest Single View - 09/05/2023 5:46 pm CLINICAL HISTORY: TRAUMA Chest pain. COMPARISON: Chest Pa And Lat (2 Views) dated 04/07/2016; CHEST SINGLE VIEW dated 07/15/2013; ABDOMEN ACUTE SERIES dated 08/15/2009; CHEST SINGLE VIEW dated 08/08/2009 FINDINGS: Portable technique limits examination quality. The lungs are grossly clear. Heart is mildly prominent. No displaced fractures. IMPRESSION: No acute intrathoracic process suspected.
--- NOTE | 2023-09-05 17:53 | RAD REPORT ---
EXAM DESCRIPTION: RAD - Hand Left 3 View - 09/05/2023 5:46 pm CLINICAL HISTORY: Pain;Swelling COMPARISON: No comparisons FINDINGS: Mild diffuse osteopenia. There is a fracture at the base of the proximal phalanx of the th ird finger. No dislocation.
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
[2023-09-05] MEDS ORDERED: HYDROCODONE/APAP 10/325 TAB ONE (18:16)
[2023-09-05 19:27] VITALS: O2SAT 99
== END 2023-09-05 19:08 | disposition home or self-care (01) ==
LOC: ER 16:05
PROC: 2W3KX1Z Immobilization of Left Finger using Splint (ICD-10-PCS; principal; 2023-09-05)
DX: S62.615A Displaced fracture of proximal phalanx of left ring finger, initial encounter for closed fracture (principal)
CPT/HCPCS: 71045; 96372; 99284

== ENCOUNTER 2024-01-28 11:33 | Inpatient (IN) | payer OTHER ==
[2024-01-28] MEDS ORDERED: ACETAMINOPHEN 500 MG TAB PO PRN (17:57)
--- OUTSIDE RECORDS SUMMARY | 2024-01-28 17:59 | XMS REPORT | Continuity of Care Document ---
Author Name Unknown Address [address] [facility] [address] [place] [address] [facility] thconnect Address [address] [facility] [address] [place] [address] Care Team Providers Care [facility] Name Role Phone Pcp, Patient Does Not Have A Primary Care Physic wing HOMAR OGDEN Attending Clinician Unavaila ETHAN Mathis Attending Clinician UnavailETHAN Maldonado Attending Clinician Ethan Vickers MD Attending Clinician [phone] GABBI MURRAY Attending Clinician Unavailable GABBI MURRAY Attending Clinician Unavailable Doctor Unassigned, [employer] [facility] Attending Clinician U ELIZABETH Quinn Attending Clinician Unavailable Elizabeth Coleman Attending Clinician [phone] Radiology Attending Clinician Unavailable RADIOLOGY Attending Clinician Unavailable 2, [facility] Attending Clinician Unavailable ORLY CATALAN Attending Clinician Orly Hunter MD Attending Clinician [phone] Tess-Mbayo_A_AH Attending Clinician Unavailable HOMAR OGDEN Admitting Clinician Unavaila bharti Pulido-Mbayo_A_AH Admitting Clinician Unavailable Payers Payer Name Policy Type Policy Number Effective Date Expirati on Date Source MEDICARE PART A \\T\\ [id number] 2012 00:00:00 MEDICAID [facility] [id number] 2018 00:00:00 WELLCARE JOÃO ZHOU CLASSIC/VALUE [id number] 2018 00:00:00 WELLCARE DILLON SHANKS (MEDICARE REPLACEMENT/ADVANT AGE - HMO) [id number] 2019 00:00:00 Problems Condition Name Condition Details Condition Category Status Onset Date Resolution Date Last Treatment Date Treating Clinician Comments Source No known active problems No known active problems Disease [facility] Pain in joint of left foot Pain in joint of left foot Diagnosis Active [facility] Pain in joint of right foot Pain in joint of right foot Diagnosis Active [facility] Closed displaced fracture of fifth metatarsal bone of left foot, initial encounter Closed displaced fracture of fifth metatarsal bone of left foot, initial encounter Diagnosis Active [facility] Closed displaced fracture of fourth metatarsal bone of right foot, initial encounter Closed displaced fracture of fourth metatarsal bone of right foot, initial encounter Diagnosis Active [facility] Closed displaced fracture of fifth metatarsal bone of right foot, initial encounter Closed displaced fracture of fifth metatarsal bone of right foot, initial encounter Diagnosis Active [facility] Allergies, Adverse Reactions, Alerts Allergy Name Allergy Type Status Severity Reaction(s) Onset Date Inactive Date Treating Clinician Comments Source NO KNOWN ALLERGIE S Drug Class Active [facility] Social History Social Habit Start Date Stop Date Quantity Comments Source Exposure to SARS-CoV-2 (event) Not sure [facility] Tobacco use and exposure 2023-09-09 00:00:00 2023-09-09 00:00:00 Smokeless tobacco non-user [facility] Alcoholic beverage intake 2023-09-09 00:00:00 2023-09-09 00:00:00 0 /d [facility] History of Social function 2023-09-09 00:00:00 2023-09-09 00:00:00 [facility] Alcohol intake 2021-11-05 00:00:00 2021-11-05 00:00:00 0 /d [facility] Sex assigned at 1960 00:00:00 1960 00:00:00 [facility] Smoking Status Start Date Stop Date Source Never smoked tobacco [facility] Medications Ordered Medication Name Filled Medication Name Start Date Stop Date Current Medication? Ordering Clinician Indication Dosage Frequency Signature (SIG) Comments Components Source methimazole 5 mg tablet 2023-0 - 00:00: 00 Yes 15mg [facility] lisinopril 5 mg tablet 2023-0 - 00:00: 00 Yes 1mg [facility] Tradjenta 5 mg tablet 2023-0 - 00:00: 00 Yes 1mg [facility] metformin 500 mg tablet 2023-0 - 00:00: 00 Yes 2mg [facility] glipizide 10 mg tablet 2023-0 - 00:00: 00 Yes 1mg [facility] atorvastati n 20 mg tablet 2023-0 8-09 00:00: 00 Yes 1mg [facility] propranolol ER 80 mg capsule,24 hr,extended release 2023-0 -09 00:00: 00 Yes 1mg [facility] lisinopril 5 mg tablet 2023-0 8- 00:00: 00 Yes 1mg [facility] atorvastati n 20 mg tablet 2023-0 8-02 00:00: 00 Yes 1mg [facility] methimazole 5 mg tablet 2023-0 5-11 00:00: 00 Yes 15mg [facility] lisinopril 5 mg tablet 2023-0 5-11 00:00: 00 Yes 1mg [facility] Tradjenta 5 mg tablet 2023-0 5-11 00:00: 00 Yes 1mg [facility] metformin 500 mg tablet 2023-0 5-11 00:00: 00 Yes 2mg [facility] glipizide 10 mg tablet 2023-0 5-11 00:00: 00 Yes 1mg [facility] atorvastati n 20 mg tablet 2023-0 5-11 00:00: 00 Yes 1mg [facility] propranolol ER 80 mg capsule,24 hr,extended release 4-0 3-15 00:00: 00 Yes 1mg [facility] METHIMAZOLE 10MG 2-15 00:00: 00 Yes [facility] TAKE 1 CAPSULE WEEKLY. 1-10 00:00: 00 09-08 00:00 :00 No [id number] [facility] INJECT 0.6ML INTRAMUSCUL AR ONCE A WEEK 1-10 00:00: 00 09-08 00:00 :00 No 200 [facility] TAKE 1 TABLET BY MOUTH EVERY EVENING 2022-04 1- 00:00: 00 09-08 00:00 :00 No 20 [facility] TAKE 1 TABLET TWICE DAILY. 2022-04 00:00: 00 09-08 00:00 :00 No 1000 [facility] TAKE 1 TABLET BY MOUTH TWICE A DAY 2022-04 00:00: 00 09-08 00:00 :00 No 10 [facility] TAKE 1.5 TABS DAILY 2022-04 00:00: 00 09-08 00:00 :00 No 10 [facility] TAKE 1 TABLET BY MOUTH DAILY PARA RINONES/ LA PRESION ARTERIAL 2022-04 0-26 00:00: 00 09-08 00:00 :00 No 5 [facility] LISINOPRIL 5MG 9-21 00:00: 00 Yes 5 [facility] TRADJENTA 5MG 8-14 00:00: 00 Yes [facility] METHIMAZOLE 10MG 8-02 00:00: 00 Yes [facility] TAKE 1 CAPSULE BY MOUTH ONCE DAILY 8-02 00:00: 00 09-08 00:00 :00 No 80 [facility] TAKE 1 TABLET EVERY 8 HOURS WITH FOOD. - 00:00: 00 09-08 00:00 :00 No 800 [facility] TAKE 1 TO 2 TABLETS EVERY 6 HOURS NEEDED FOR PAIN. - 00:00: 00 09-08 00:00 :00 No 50 [facility] TAKE 1 CAPSULE TWICE DAILY. - 00:00: 00 09-08 00:00 :00 No 100 [facility] GLIPIZIDE 10MG 0 10-23 00:00: 00 Yes [facility] METHIMAZOLE 10MG 10-23 00:00: 00 Yes [id number] [facility] TAKE 1 TABLET DAILY. 10-22 00:00: 00 09-08 00:00 :00 No 50 [facility] TAKE 1 TABLET BY MOUTH TWICE A DAY 10-22 00:00: 00 09-08 00:00 :00 No 10 [facility] TAKE 1.5 TABS DAILY 10-22 00:00: 00 09-08 00:00 :00 No 10 [facility] TAKE 1 TABLET DAILY. 10-21 00:00: 00 09-08 00:00 :00 No 500 [facility] LISINOPRIL 5MG 6 00:00: 00 Yes [facility] TAKE 1 TABLET BY MOUTH DAILY 5-04 00:00: 00 09-08 00:00 :00 No 5 [facility] TAKE 1 TABLET BY MOUTH DAILY 0 5-02 00:00: 00 09-08 00:00 :00 No 5 [facility] LISINOPRIL 5MG 2-03 00:00: 00 Yes 5000 [facility] Dose Unknown 2021-04 2- 00:00: 00 Yes [facility] Dose Unknown 2021-04 2- 00:00: 00 Yes [facility] TAKE ONE (1) TABLET(S) BY MOUTH ONCE A DAY. 2021-04- 00:00: 00 Yes [facility] LISINOPRIL 5MG TAB 2021-04 2-15 00:00: 00 Yes [facility] TAKE 10 ML BY MOUTH EVERY 6-8 HOURS NEEDED 2021-04 2- 00:00: 00 Yes [facility] FUROSEMIDE 40MG TAB 2021-04 2-15 00:00: 00 Yes [facility] METFORMIN HYDROCHLORI DE 1000MG TAB 2021-04 2-15 00:00: 00 Yes [facility] TAKE HALF TAB DAILY 2021-04 2-15 00:00: 00 09-08 00:00 :00 No [facility] Dose Unknown 1 2-15 00:00: 00 09-08 00:00 :00 No [facility] TRADJENTA 5MG TAB 2021-04 2-15 00:00: 00 09-08 00:00 :00 No [facility] TAKE ONE (1) TABLET(S) BY MOUTH DAILY. 2021-0 9-13 00:00: 00 Yes [facility] ATORVASTATI N CALCIUM 20MG TAB 2021-0 9-12 00:00: 00 Yes [facility] METHIMAZOLE 10MG 2021-0 8-11 00:00: 00 Yes [id number] [facility] LISINOPRIL 5MG 2021-0 8-11 00:00: 00 Yes 5000 [facility] &lt 2022-0 8-10 00:00: 00 Yes 20 [facility] Dose Unknown 2-0 7-29 00:00: 00 Yes 300 [facility] Dose Unknown 2021-0 7-29 00:00: 00 Yes [facility] Dose Unknown 2-0 7-20 00:00: 00 Yes 1000 [facility] Dose Unknown 2-0 7-20 00:00: 00 Yes 10 [facility] &lt 2022-0 7-18 00:00: 00 Yes 5 [facility] &lt 2022-0 7-18 00:00: 00 Yes 5 [facility] TAKE 10 ML BY MOUTH EVERY 6-8 HOURS NEEDED 2-0 7-17 00:00: 00 Yes [facility] Dose Unknown 2-0 7-17 00:00: 00 Yes 1000 [facility] &lt 2022-0 7-15 00:00: 00 Yes 5 [facility] Dose Unknown 2-0 7-14 00:00: 00 Yes 10 [facility] lisinopril 5 mg tablet 2021-0 7-13 00:00: 00 Yes 1mg [facility] glipizide 10 mg tablet 2-0 7-13 00:00: 00 Yes 1mg [facility] Dose Unknown 2-0 7-13 00:00: 00 Yes [facility] Dose Unknown 2-0 7-13 00:00: 00 Yes [facility] Dose Unknown 2-0 7-13 00:00: 00 Yes [facility] &lt 2022-0 7-13 00:00: 00 Yes 20 [facility] [place] [facility] &lt 2022-0 7-13 00:00: 00 Yes 300 [facility] Dose Unknown 2-0 7-12 00:00: 00 Yes 1000 [facility] &lt 2022-0 7-08 00:00: 00 Yes 5 [facility] Dose Unknown 2022-0 7-05 00:00: 00 Yes [facility] Dose Unknown 2022-0 7-05 00:00: 00 Yes 1000 [facility] Dose Unknown 2022-0 7-05 00:00: 00 Yes 10 [facility] Dose Unknown 2022-0 7- 00:00: 00 Yes [facility] &lt 2022-0 6-30 00:00: 00 Yes [facility] &lt 2022-0 6-28 00:00: 00 Yes [facility] TAKE ONE (1) TABLET(S) BY MOUTH ONCE A DAY. 2022-0 6-28 00:00: 00 Yes [facility] TAKE ONE (1) TABLET(S) BY MOUTH ONCE A DAY. 2022-0 6-24 00:00: 00 Yes [facility] &lt 2022-0 6-22 00:00: 00 Yes [facility] Dose Unknown 2-0 6-21 00:00: 00 Yes [facility] atorvastati n 20 mg tablet 2-0 6-21 00:00: 00 Yes 1mg [facility] Dose Unknown 2-0 6-21 00:00: 00 Yes [facility] &lt 2022-0 6-21 00:00: 00 Yes [facility] lisinopril 5 mg tablet 2-0 5-24 00:00: 00 Yes 1mg [facility] Dose Unknown 2-0 5-24 00:00: 00 Yes [facility] Dose Unknown 2-0 3-23 00:00: 00 Yes [facility] Dose Unknown 2022-0 3-23 00:00: 00 Yes [facility] Dose Unknown 2022-0 3-23 00:00: 00 Yes [facility] Dose Unknown 2-0 3-16 00:00: 00 Yes [facility] Dose Unknown 3-16 00:00: 00 Yes [facility] Dose Unknown 3-16 00:00: 00 Yes [facility] Dose Unknown 2-15 00:00: 00 Yes [facility] Dose Unknown 2020-04 2-19 00:00: 00 Yes [facility] tadalafil 5 mg tablet 2020-04 2-15 00:00: 00 Yes 1mg [facility] Tradjenta 5 mg tablet 2020-04 2- 00:00: 00 Yes 1mg [facility] Dose Unknown 2020-04 2- 00:00: 00 Yes [facility] sodium hyaluronate (viscosup) (ORTHOVISC) injection 30 mg 2020-04 20:45: 00 04-03 22:35 :00 No [id number] 30mg [facility] SITAGLIPTIN PHOSPHATE (JANUVIA ORAL) 2020-04 13:40: 44 Yes Take by mouth. [facility] lisinopril 5 mg tablet 2020-04 1 00:00: 00 Yes 1mg [facility] Dose Unknown 11-30 00:00: 00 Yes [facility] lisinopril 5 mg tablet 11-27 00:00: 00 Yes 1mg [facility] Tradjenta 5 mg tablet 11-27 00:00: 00 Yes 1mg [facility] glipizide 10 mg tablet 11-27 00:00: 00 Yes 1mg [facility] metformin 1,000 mg tablet - 00:00: 00 Yes 1mg [facility] atorvastati n 20 mg tablet 11-27 00:00: 00 Yes 1mg [facility] Dose Unknown 11-27 00:00: 00 Yes [facility] Dose Unknown 11-27 00:00: 00 Yes [facility] gabapentin 300 mg capsule 8- 00:00: 00 Yes 1mg [facility] prednisone 20 mg tablet 10-02 00:00: 00 Yes 1mg [facility] methocarbam ol 500 mg tablet 2021-0 6-08 00:00: 00 Yes 1mg [facility] lisinopril 5 mg tablet 0 3-10 00:00: 00 Yes 1mg [facility] furosemide 40 mg tablet 3-10 00:00: 00 Yes 1mg [facility] Tradjenta 5 mg tablet 3-10 00:00: 00 Yes 1mg [facility] glipizide 10 mg tablet 0 3-10 00:00: 00 Yes 1mg [facility] metformin 1,000 mg tablet 3- 00:00: 00 Yes 1mg [facility] atorvastati n 20 mg tablet 3- 00:00: 00 Yes 1mg [facility] ferrous sulfate 325 mg (65 mg iron) tablet,herber yed release 3 00:00: 00 Yes 1(65 mg iron) [facility] gabapentin 300 mg capsule 3- 00:00: 00 Yes 1mg [facility] Tradjenta 5 mg tablet 2- 00:00: 00 Yes 1mg [facility] lisinopril 5 mg tablet 2- 00:00: 00 Yes 1mg [facility] furosemide 40 mg tablet 2- 00:00: 00 Yes 1mg [facility] metformin 1,000 mg tablet 2-22 00:00: 00 Yes 1mg [facility] glipizide 10 mg tablet 2- 00:00: 00 Yes 1mg [facility] atorvastati n 20 mg tablet 2- 00:00: 00 Yes 1mg [facility] ferrous sulfate 325 mg (65 mg iron) tablet,herber yed release 2-22 00:00: 00 Yes 1(65 mg iron) [facility] Tradjenta 5 mg tablet 1-06 00:00: 00 Yes 1mg [facility] metformin 1,000 mg tablet 0 1-06 00:00: 00 Yes 1mg [facility] lisinopril 5 mg tablet 2019-04 2-15 00:00: 00 Yes 1mg [facility] glipizide 10 mg tablet 2019-0415 00:00: 00 Yes 1mg [facility] furosemide 40 mg tablet 2019-04 00:00: 00 Yes 1mg [facility] lisinopril 5 mg tablet 2019-04 00:00: 00 Yes 1mg [facility] Tradjenta 5 mg tablet 2019-04 00:00: 00 Yes 1mg [facility] pioglitazon e 30 mg tablet 2019-04 00:00: 00 Yes 1mg [facility] metformin 1,000 mg tablet 2019-04 00:00: 00 Yes 1mg [facility] atorvastati n 20 mg tablet 2019-04 00:00: 00 Yes 1mg [facility] ferrous sulfate 325 mg (65 mg iron) tablet,herber yed release 2019-04 00:00: 00 Yes 1(65 mg iron) [facility] furosemide 40 mg tablet 2019-04 0 00:00: 00 Yes 1mg [facility] amoxicillin 875 mg tablet 2019-04 0 00:00: 00 Yes 1mg [facility] cyclobenzap rine 5 mg tablet 2019-04 013 00:00: 00 Yes 12mg [facility] lisinopril 5 mg tablet 01-04 00:00: 00 Yes 1mg [facility] pioglitazon e 30 mg tablet 01-04 00:00: 00 Yes 1mg [facility] ferrous sulfate 325 mg (65 mg iron) tablet,herber yed release 05 00:00: 00 Yes 1(65 mg iron) [facility] lisinopril 5 mg tablet 8-04 00:00: 00 Yes 1mg [facility] Tradjenta 5 mg tablet 8-04 00:00: 00 Yes 1mg [facility] amoxicillin 875 mg tablet 8-04 00:00: 00 Yes 1mg [facility] metformin 1,000 mg tablet 8-04 00:00: 00 Yes 1mg [facility] atorvastati n 20 mg tablet 8-04 00:00: 00 Yes 1mg [facility] furosemide 20 mg tablet 2020-0 8-04 00:00: 00 Yes 1mg [facility] amoxicillin 500 mg capsule 0 8-04 00:00: 00 Yes 1mg [facility] chlorhexidi ne gluconate 0.12 % mouthwash 0 8-04 00:00: 00 Yes 15% [facility] lisinopril 5 mg tablet 0 7-31 00:00: 00 Yes 1mg [facility] pioglitazon e 30 mg tablet 0 6-16 00:00: 00 Yes 1mg [facility] hydrochloro thiazide 12.5 mg tablet -12 00:00: 00 Yes 1mg [facility] docusate sodium 100 mg capsule -12 00:00: 00 Yes 2mg [facility] neomycin-po lymyxin-hyd rocort 3.5 mg-10,000 unit/mL-1 % ear drops,susp -19 00:00: 00 Yes 3mg/mL- unit/mL -% [facility] amoxicillin 500 mg capsule -19 00:00: 00 Yes 1mg [facility] triamcinolo ne acetonide 0.025 % topical cream 0 3-18 00:00: 00 Yes 1% [facility] diclofenac 3 % topical gel 0 3-18 00:00: 00 Yes 1% [facility] hydroxyzine HCl 10 mg tablet 3-18 00:00: 00 Yes 1mg [facility] pioglitazon e 30 mg tablet 0 2-25 00:00: 00 Yes 1mg [facility] cyclobenzap rine 10 mg tablet 0 2-25 00:00: 00 Yes 1mg [facility] cyclobenzap rine 10 mg tablet 0 1-28 00:00: 00 Yes 1mg [facility] lisinopril 5 mg tablet 0 1-23 00:00: 00 Yes 1mg [facility] diclofenac 75 mg EC tablet 2018-04-16 00:00: 00 Yes 75mg Take 1 tablet by mouth 2 (two) times daily with meals. [facility] diclofenac 1 % topical gel 2018-0416 00:00: 00 Yes 1% [facility] pioglitazon e 30 mg tablet 01-18 00:00: 00 Yes 1mg [facility] Tradjenta 5 mg tablet 01-18 00:00: 00 Yes 1mg [facility] lisinopril 5 mg tablet 01-18 00:00: 00 Yes 1mg [facility] hydrochloro thiazide 50 mg tablet 01-18 00:00: 00 Yes 1mg [facility] metformin 1,000 mg tablet 01-18 00:00: 00 Yes 1mg [facility] glipizide 10 mg tablet 01-18 00:00: 00 Yes 1mg [facility] cyclobenzap rine 10 mg tablet 01-18 00:00: 00 Yes 1mg [facility] atorvastati n 20 mg tablet 01-18 00:00: 00 Yes 1mg [facility] docusate sodium 100 mg capsule 01-18 00:00: 00 Yes 2mg [facility] gabapentin 300 mg capsule 01-18 00:00: 00 Yes 1mg [facility] diclofenac 75 mg EC tablet 10-25 00:00: 00 Yes 75mg Take 1 tablet by mouth 2 (two) times daily with meals. [facility] glipizide 10 mg tablet 10-13 00:00: 00 Yes 1mg [facility] metformin 1,000 mg tablet 10-13 00:00: 00 Yes 1mg [facility] gabapentin 300 mg capsule 09-21 00:00: 00 Yes 1mg [facility] cyclobenzap rine 10 mg tablet 09-01 00:00: 00 Yes 1mg [facility] gabapentin 300 mg capsule 09-01 00:00: 00 Yes 1mg [facility] lisinopril 5 mg tablet 07-13 00:00: 00 Yes 1mg [facility] hydrochloro thiazide 50 mg tablet 07-13 00:00: 00 Yes 1mg [facility] hydrochloro thiazide 25 mg tablet 05-05 00:00: 00 Yes 1mg [facility] Vitamin D2 50,000 unit capsule 05-05 00:00: 00 Yes 1unit [facility] lisinopril 5 mg tablet 05-04 00:00: 00 Yes 1mg [facility] glipizide 10 mg tablet 05-04 00:00: 00 Yes 1mg [facility] metformin 1,000 mg tablet 05-04 00:00: 00 Yes 1mg [facility] naproxen 500 mg tablet,herber yed release 2017-04 00:00: 00 Yes 1mg [facility] prednisone 20 mg tablet 2017-04 00:00: 00 Yes 1mg [facility] glipizide 10 mg tablet 2017-04 00:00: 00 Yes 1mg [facility] metformin 1,000 mg tablet 2017-04 00:00: 00 Yes 1mg [facility] glipizide 10 mg tablet 2017-04 00:00: 00 Yes 1mg [facility] metformin 1,000 mg tablet 2017-04 00:00: 00 Yes 1mg [facility] glipizide 10 mg tablet 12-19 00:00: 00 Yes 1mg [facility] metformin 1,000 mg tablet 12-19 00:00: 00 Yes 1mg [facility] Dose Unknown 11-11 00:00: 00 Yes [facility] loratadine 10 mg tablet 11-11 00:00: 00 Yes 1mg [facility] glipizide 10 mg tablet 11-11 00:00: 00 Yes 1mg [facility] metformin 1,000 mg tablet 11-11 00:00: 00 Yes 1mg [facility] Vitamin D2 50,000 unit capsule 11-11 00:00: 00 Yes 1unit [facility] neomycin-po lymyxin-dex ameth 3.5 mg/mL-10,00 0 unit/mL-0.1 % eye drops 09-14 00:00: 00 Yes 3unit/m L-0.1 % [facility] gabapentin 800 mg tablet 09-14 00:00: 00 Yes 1mg [facility] cyclobenzap rine 10 mg tablet 09-14 00:00: 00 Yes 1mg [facility] cyclobenzap rine 10 mg tablet 05-25 00:00: 00 Yes 1mg [facility] prednisone 20 mg tablet 05-25 00:00: 00 Yes mg [facility] methocarbam ol 500 mg tablet 05-25 00:00: 00 Yes 2mg [facility] acetaminoph en 300 mg-codeine 15 mg tablet 05-25 00:00: 00 Yes 2mg [facility] gabapentin 600 mg tablet 2016-04 00:00: 00 Yes 1mg [facility] lisinopril 5 mg tablet 2016-04 00:00: 00 Yes 1mg [facility] metformin 1,000 mg tablet 2016-04 00:00: 00 Yes 1mg [facility] glipizide 10 mg tablet 2016-04 00:00: 00 Yes 1mg [facility] diclofenac sodium 75 mg tablet,herber yed release 2016-04 00:00: 00 Yes 1mg [facility] Vitamin D2 50,000 unit capsule 2016-04 00:00: 00 Yes 1unit [facility] glimepiride 4 mg tablet 2016-04 00:00: 00 Yes 1mg [facility] glimepiride 4 mg tablet 2016-04 00:00: 00 Yes 1mg [facility] metformin 1,000 mg tablet 01-01 00:00: 00 Yes 1mg [facility] metformin 1,000 mg tablet 12-24 00:00: 00 Yes 1mg [facility] glimepiride 4 mg tablet 12-24 00:00: 00 Yes 1mg [facility] pravastatin 20 mg tablet 12-03 00:00: 00 Yes 1mg [facility] gabapentin 600 mg tablet 11-18 00:00: 00 Yes 1mg [facility] gabapentin 600 mg tablet 10-15 00:00: 00 Yes 1mg [facility] lactulose 10 gram/15 mL oral solution 10-01 00:00: 00 Yes 1gram/1 5 mL [facility] pravastatin 20 mg tablet 09-16 00:00: 00 Yes 1mg [facility] gabapentin 600 mg tablet 16 00:00: 00 Yes 1mg [facility] loratadine 10 mg tablet 08-13 00:00: 00 Yes 1mg [facility] Tessalon Perles 100 mg capsule 08-13 00:00: 00 Yes 1mg [facility] diclofenac sodium 75 mg tablet,herber yed release 06-05 00:00: 00 Yes 1mg [facility] diclofenac sodium 75 mg tablet,herber yed release 05-13 00:00: 00 Yes 1mg [facility] carvedilol 3.125 mg tablet 05-01 00:00: 00 Yes 1mg [facility] cyclobenzap rine 10 mg tablet 2015-04 00:00: 00 Yes 1mg [facility] ibuprofen 800 mg tablet 2015-04 00:00: 00 Yes 1mg [facility] ketoconazol e 2 % topical cream 2015-04 00:00: 00 Yes 1% [facility] glipizide ER 10 mg tablet, extended release 24 hr 2015-04 00:00: 00 Yes 1mg [facility] pravastatin 20 mg tablet 2015-04 00:00: 00 Yes 1mg [facility] glimepiride 4 mg tablet 2015-04 00:00: 00 Yes 1mg [facility] metformin 1,000 mg tablet 2015-04 00:00: 00 Yes 1mg [facility] gabapentin 600 mg tablet 2015-04 00:00: 00 Yes 1mg [facility] enalapril maleate 10 mg tablet 2015-04 00:00: 00 Yes 1mg [facility] glimepiride 4 mg tablet 01-21 00:00: 00 Yes 1mg [facility] gabapentin 600 mg tablet 01-21 00:00: 00 Yes 1mg [facility] glipizide ER 10 mg tablet, extended release 24 hr 12-26 00:00: 00 Yes 1mg [facility] tamsulosin (FLOMAX) 0.4 mg 24 hr capsule 12-05 00:00: 00 Yes TAKE ONE CAPSULE BY MOUTH EVERY DAY [facility] diclofenac (VOLTAREN) 75 mg EC tablet 11-07 00:00: 00 Yes 75mg Take 1 tablet by mouth 2 (two) times daily with meals. [facility] TRADJENTA 5 mg tablet 10-31 00:00: 00 Yes 1{tbl} Take 1 tablet by mouth every morning. [facility] glimepiride (AMARYL) 4 mg tablet 10-31 00:00: 00 Yes TAKE 1 TABLET BY MOUTH TWICE A DAY [facility] glimepiride 4 mg tablet 10-31 00:00: 00 Yes 1mg [facility] metformin 1,000 mg tablet 10-31 00:00: 00 Yes 1mg [facility] enalapril maleate 10 mg tablet 10-31 00:00: 00 Yes 1mg [facility] gabapentin 600 mg tablet 10-31 00:00: 00 Yes 1mg [facility] enalapril (VASOTEC) 10 mg tablet 10-24 00:00: 00 Yes TAKE 1 TABLET BY MOUTH 3 TIMES A DAY [facility] metFORMIN (GLUCOPHAGE ) 1,000 mg tablet 10-24 00:00: 00 Yes TAKE 1 TABLET BY MOUTH TWICE A DAY [facility] pravastatin (PRAVACHOL) 20 mg tablet 09-04 00:00: 00 Yes TABLET BY MOUTH ONCE A DAY [facility] metformin 1,000 mg tablet 07-15 00:00: 00 Yes 1mg [facility] glimepiride 4 mg tablet 07-15 00:00: 00 Yes 1mg [facility] gabapentin 600 mg tablet 07-15 00:00: 00 Yes 1mg [facility] enalapril maleate 10 mg tablet 07-15 00:00: 00 Yes 1mg [facility] pravastatin 20 mg tablet 2014-04 00:00: 00 Yes 1mg [facility] Januvia 100 mg tablet 2014-04 00:00: 00 Yes 1mg [facility] glimepiride 4 mg tablet 2014-04 00:00: 00 Yes 1mg [facility] metformin 1,000 mg tablet 2014-04 00:00: 00 Yes 1mg [facility] gabapentin 600 mg tablet 2014-04 00:00: 00 Yes 1mg [facility] enalapril maleate 10 mg tablet 2014-04 00:00: 00 Yes 1mg [facility] glipizide 10 mg tablet 2014-04 00:00: 00 Yes 2mg [facility] metformin 850 mg tablet 2014-04 00:00: 00 Yes 1mg [facility] Januvia 100 mg tablet 12-29 00:00: 00 Yes 1mg [facility] pravastatin 20 mg tablet 12-29 00:00: 00 Yes 1mg [facility] glipizide 10 mg tablet 12-29 00:00: 00 Yes 2mg [facility] enalapril maleate 10 mg tablet 12-29 00:00: 00 Yes 1mg [facility] metformin 850 mg tablet 12-29 00:00: 00 Yes 1mg [facility] gabapentin 600 mg tablet 12-29 00:00: 00 Yes 1mg [facility] Bactrim DS 800 mg-160 mg tablet 11-06 00:00: 00 Yes 1mg [facility] gabapentin 600 mg tablet 10-05 00:00: 00 Yes 1mg [facility] pravastatin 20 mg tablet 09-12 00:00: 00 Yes 1mg [facility] Januvia 100 mg tablet 09-12 00:00: 00 Yes 1mg [facility] glipizide 10 mg tablet 09-12 00:00: 00 Yes 2mg [facility] enalapril maleate 10 mg tablet 09-12 00:00: 00 Yes 1mg [facility] metformin 850 mg tablet 09-12 00:00: 00 Yes 1mg [facility] Januvia 100 mg tablet 06-28 00:00: 00 Yes 1mg [facility] pravastatin 20 mg tablet 06-28 00:00: 00 Yes 1mg [facility] glipizide 10 mg tablet 06-28 00:00: 00 Yes 2mg [facility] metformin 850 mg tablet 06-28 00:00: 00 Yes 1mg [facility] enalapril maleate 10 mg tablet 06-28 00:00: 00 Yes 1mg [facility] Metformin HCl Metformin HCl Yes Josh Wise not defined [facility] Hydrochloro thiazide Hydrochloro thiazide Yes Josh Wise not defined [facility] Atorvastati n Calcium Atorvastati n Calcium Yes Josh Wise not defined [facility] Pioglitazon e HCl Pioglitazon e HCl Yes Josh Wise not defined [facility] Tradjenta Tradjenta Yes Josh Wise not defined [facility] GlipiZIDE GlipiZIDE Yes Josh Wise not defined [facility] Immunizations Ordered Immunization Name Filled Immunization Name Date Status Comments Source Pfizer COVID-19 Vaccine Pfizer COVID-19 Vaccine 2021-04-02 00:00:00 Completed [facility] Pfizer COVID-19 Vaccine Pfizer COVID-19 Vaccine 2021-04-02 00:00:00 Completed [facility] Marlene COVID-19 Vaccine Marlene COVID-19 Vaccine 2020-10-02 00:00:00 Completed [facility] Marlene COVID-19 Vaccine Marlene COVID-19 Vaccine 2020-10-02 00:00:00 Completed [facility] Pneumococcal conjugate P Pneumococcal conjugate P 2019-07-18 00:00:00 Completed [facility] Pneumococcal conjugate P Pneumococcal conjugate P 2019-07-18 00:00:00 Completed [facility] Vital Signs Vital Name Observation Time Observation Value Comments Anselmo adams Body height 2023-09-09 18:01:00 162.6 cm [facility] Body weight 2023-09-09 18:01:00 160.982 kg [facility] BMI 2023-09-09 18:01:00 60.92 kg/m2 [facility] Systolic blood pressure 2021-04-03 19:41:00 120 mm[Hg] [place] [facility] Diastolic blood pressure 2021-04-03 19:41:00 68 mm[Hg] [place] [facility] Heart rate 2021-04-03 19:41:00 87 /min [facility] Res[facility] rate 2021-04-03 19:41:00 20 /min [facility] Body height 2021-04-03 19:41:00 152.4 cm [facility] Body weight 2021-04-03 19:41:00 153.452 kg [facility] BMI 2021-04-03 19:41:00 66.07 kg/m2 [facility] Oxygen saturation in Arterial blood by Pulse oximetry 2021-04-03 19:41:00 100 /min [place] [facility] BP Systolic 2023-12-04 08:15:00 120 mm[Hg] Step hen F Chucho BP Diastolic 2023-12-04 08:15:00 70 mm[Hg] Nael phen F Chucho Weight Measured 2023-12-04 08:15:00 349.60 pounds [facility] Height Measured 2023-12-04 08:15:00 65.00 inches [facility] Body Temperature 2023-12-04 08:15:00 97.30 degrees [facility] Heart Rate 2023-12-04 08:15:00 90.00 /min Lilly en F Chucho Respiratory Rate 2023-12-04 08:15:00 16.00 /min [facility] BP Systolic 2023-09-05 10:42:00 124 mm[Hg] Step hen F [facility]ucho BP Diastolic 2023-09-05 10:42:00 78 mm[Hg] Nael phen F Chucho Weight Measured 2023-09-05 10:42:00 353.40 pounds [facility] Height Measured 2023-09-05 10:42:00 65.00 inches [facility] Body Temperature 2023-09-05 10:42:00 98.20 degrees [facility] Heart Rate 2023-09-05 10:42:00 68.00 /min Lilly en F [facility] Respiratory Rate 2023-09-05 10:42:00 16.00 /min [facility] BP Systolic 2023-07-21 08:22:00 120 mm[Hg] Step hen F [facility]ucho BP Diastolic 2023-07-21 08:22:00 75 mm[Hg] Nael phen F Chucho Weight Measured 2023-07-21 08:22:00 354.40 pounds [facility] Height Measured 2023-07-21 08:22:00 65.00 inches [facility] Body Temperature 2023-07-21 08:22:00 98.20 degrees [place] [facility] Heart Rate 2023-07-21 08:22:00 58.00 /min Lilly en [facility] Respiratory Rate 2023-07-21 08:22:00 16.00 /min [facility] BP Systolic 2023-06-09 08:30:00 130 mm[Hg] Step hen F Chucho BP Diastolic 2023-06-09 08:30:00 80 mm[Hg] Nael phen F [facility]ucho Weight Measured 2023-06-09 08:30:00 354.80 pounds [facility] Height Measured 2023-06-09 08:30:00 65.00 inches [facility] Body Temperature 2023-06-09 08:30:00 98.20 degrees [facility] Heart Rate 2023-06-09 08:30:00 67.00 /min Lilly en F [facility]ucho Respiratory Rate 2023-06-09 08:30:00 17.00 /min [facility] BP Systolic 2023-05-06 10:01:00 120 mm[Hg] Step hen F Chucho BP Diastolic 2023-05-06 10:01:00 78 mm[Hg] Nael phen F Chucho Weight Measured 2023-05-06 10:01:00 347.40 pounds [facility] Height Measured 2023-05-06 10:01:00 65.00 inches [facility] Body Temperature 2023-05-06 10:01:00 98.40 degrees [place] [facility] Heart Rate 2023-05-06 10:01:00 68.00 /min Lilly en F [facility]ucho Respiratory Rate 2023-05-06 10:01:00 18.00 /min [facility] BP Systolic 2023-03-16 14:39:00 102 mm[Hg] Step hen F Chucho BP Diastolic 2023-03-16 14:39:00 71 mm[Hg] Nael phen F Chucho Weight Measured 2023-03-16 14:39:00 346.00 pounds [facility] Height Measured 2023-03-16 14:39:00 65.00 inches [facility] Body Temperature 2023-03-16 14:39:00 98.20 degrees [place] [facility] Heart Rate 2023-03-16 14:39:00 83.00 /min Lilly en F [facility]ucho Respiratory Rate 2023-03-16 14:39:00 18.00 /min [place] [facility] BP Systolic 2022-11-26 14:11:00 135 mm[Hg] Step hen F Chucho BP Diastolic 2022-11-26 14:11:00 80 mm[Hg] Nael phen F Chucho Weight Measured 2022-11-26 14:11:00 331.80 pounds [facility] Height Measured 2022-11-26 14:11:00 65.00 inches [facility]o Body Temperature 2022-11-26 14:11:00 98.20 degrees [place] [facility] Heart Rate 2022-11-26 14:11:00 86.00 /min Lilly en F Chucho Respiratory Rate 2022-11-26 14:11:00 17.00 /min [facility] BP Systolic 2022-11-17 09:47:00 113 mm[Hg] Step hen F Chucho BP Diastolic 2022-11-17 09:47:00 72 mm[Hg] Nael phen F Chucho Weight Measured 2022-11-17 09:47:00 334.40 pounds [facility] Height Measured 2022-11-17 09:47:00 65.00 inches [facility] Body Temperature 2022-11-17 09:47:00 98.40 degrees Los F [facility]ucho Heart Rate 2022-11-17 09:47:00 86.00 /min Lilly en F Chucho Respiratory Rate 2022-11-17 09:47:00 [place] [facility] BP Systolic 2022-10-21 08:27:00 124 mm[Hg] Step hen F Chucho BP Diastolic 2022-10-21 08:27:00 79 mm[Hg] Nael phen F [facility]ucho Weight Measured 2022-10-21 08:27:00 337.60 pounds [facility]o Height Measured 2022-10-21 08:27:00 65.00 inches [facility] Body Temperature 2022-10-21 08:27:00 98.10 degrees [place] [facility] Heart Rate 2022-10-21 08:27:00 78.00 /min Lilly en F Chucho Respiratory Rate 2022-10-21 08:27:00 17.00 /min [place] [facility] BP Systolic 2022-08-26 09:56:00 131 mm[Hg] Step hen F Chucho BP Diastolic 2022-08-26 09:56:00 78 mm[Hg] Nael phen F Chucho Weight Measured 2022-08-26 09:56:00 339.00 pounds [facility]o Height Measured 2022-08-26 09:56:00 65.00 inches [facility]o Body Temperature 2022-08-26 09:56:00 97.80 degrees [place] [facility] Heart Rate 2022-08-26 09:56:00 77.00 /min Lilly en F Chucho Respiratory Rate 2022-08-26 09:56:00 [place] [facility] BP Systolic 2022-04-10 17:11:00 153 mm[Hg] Step hen F Chucho BP Diastolic 2022-04-10 17:11:00 82 mm[Hg] Nael phen F Chucho Weight Measured 2022-04-10 17:11:00 344.80 pounds [facility] Height Measured 2022-04-10 17:11:00 65.00 inches [facility]o Body Temperature 2022-04-10 17:11:00 96.00 degrees [place] [facility] Heart Rate 2022-04-10 17:11:00 88.00 /min Lilly en F Chucho Respiratory Rate 2022-04-10 17:11:00 [place] Procedures Procedure Date / Time Performed Performing Clinicia n Source REFERRAL- REQUEST/RESPONSE 2022-09-04 05:01:00 Doctor Unassigned, [facility] OP CLINIC NOTES/CONSULTS 2021-03-12 06:01:00 Doctor Unassigned, [facility] Encounters Start Date/Time End Date/Time Encounter Type Admission Type Attending Clinicians Care Facility Care Department Encounter ID Source 2021-05-22 11:43:58 Outpatient [facility] [id number] [facility] 2021-05-22 11:34:31 Outpatient [facility] [id number] [facility] 2024-01-18 12:54:00 2024-01-28 16:40:00 Inpatient [facility] [id number] 2023-12-04 08:02:53 2023-12-04 08:02:53 Outpatient [facility] [id number] [place] 2023-12-04 00:00:00 2023-12-04 00:00:00 Outpatient Visit [facility] [id number] [place] 2023-09-09 13:00:00 2023-09-09 13:12:18 Outpatient R ETHAN CISNEROS [facility] [id number] [facility] 2023-09-09 13:00:00 2023-09-09 13:12:18 Office Visit Ethan Cisneros [facility] 1.2.840.114 350.1.13.10 4.2.7.2.686 [id number] [facility] 2023-09-05 10:25:59 2023-09-05 10:25:59 Outpatient SFA SFA [id number] [place] 2023-09-05 00:00:00 2023-09-05 00:00:00 Outpatient Visit SFA [id number] [place] 2023-09-02 09:43:22 2023-09-02 09:43:22 Outpatient SFA SFA [id number] [place] 2023-08-12 09:20:38 2023-08-12 09:20:38 Outpatient SFA SFA [id number] [place] 2023-08-04 10:36:45 2023-08-04 10:36:45 Outpatient SFA SFA [id number] [place] 2023-07-21 08:06:49 2023-07-21 08:06:49 Outpatient SFA SFA [id number] [place] 2023-07-17 11:20:32 2023-07-17 11:20:32 Outpatient SFA SFA [id number] [place] 2023-06-24 09:43:12 2023-06-24 09:43:12 Outpatient SFA SFA [id number] [place] 2023-06-10 09:32:20 2023-06-10 09:32:20 Outpatient SFA SFA [id number] [place] 2023-06-09 08:16:12 2023-06-09 08:16:12 Outpatient SFA SFA [id number] [place] 2023-05-22 08:35:19 2023-05-22 08:35:19 Outpatient SFA SFA [id number] [place] 2023-05-14 08:13:33 2023-05-14 08:13:33 Outpatient SFA SFA [id number] [place] 2023-05-13 08:18:45 2023-05-13 08:18:45 Outpatient SFA SFA [id number] [place] 2023-05-06 12:02:14 2023-05-06 12:02:14 Outpatient SFA SFA [id number] [place] 2023-04-16 09:35:01 2023-04-16 09:35:01 Outpatient SFA SFA [id number] [place] 2023-03-17 08:00:05 2023-03-17 08:00:05 Outpatient SFA SFA [id number] [place] 2023-03-16 14:30:27 2023-03-16 14:30:27 Outpatient SFA SFA [id number] [place] 2022-11-27 13:05:14 2022-11-27 13:05:14 Outpatient SFA SFA [id number] [place] 2022-11-26 13:59:55 2022-11-26 13:59:55 Outpatient SFA SFA [id number] [place] 2022-11-24 08:15:09 2022-11-24 08:15:09 Outpatient [facility] [id number] [place] 2022-11-18 13:05:25 2022-11-18 13:05:25 Outpatient [facility] [id number] [place] 2022-11-17 09:41:14 2022-11-17 09:41:14 Outpatient [facility] [id number] [place] 2022-10-21 08:11:20 2022-10-21 08:11:20 Outpatient [facility] [id number] [place] 2022-09-08 00:00:00 2022-09-08 00:00:00 Telephone Gabbi Murray [facility] SINDY?[facility] 1.2.840.114 350.1.13.10 4.2.7.2.686 [id number] [facility] 2022-09-04 00:00:00 2022-09-04 00:00:00 Orders Only Doctor Unassigned, [facility] 1.2.840.114 350.1.13.10 4.2.7.2.686 [id number] [facility] 2022-05-01 10:04:54 2022-05-01 10:04:54 Outpatient S[facility] [id number] [place] 2022-04-11 09:50:09 2022-04-11 09:50:09 Outpatient [facility] [id number] [place] 2022-04-10 16:58:38 2022-04-10 16:58:38 Outpatient [facility] [id number] [place] 2022-02-14 08:44:20 2022-02-14 08:44:20 Outpatient [facility] [id number] [place] 2021-04-03 13:45:00 2021-04-03 15:07:03 Outpatient ELIZABETH SHAH [facility] [id number] [facility] 2021-04-03 13:27:48 2021-04-03 15:07:03 Office Visit [place], [facility] SINDY?BHARTILouis [facility] 1.2.840.114 350.1.13.10 4.2.7.2.686 [id number] [facility] 2021-04-03 13:45:00 2021-04-03 13:45:00 [facility] [id number] 2021-04-01 13:45:00 2021-04-01 13:45:00 Outpatient Sang FRANCIE [facility] [id number] [facility] 2021-03-27 14:45:00 2021-03-27 16:35:07 Outpatient Sang FRANCIE [facility] [id number] [facility] 2021-03-27 14:24:52 2021-03-27 16:35:07 [facility] 1.2.840.114 350.1.13.10 4.2.7.2.686 [id number] [facility] 2021-03-27 14:45:00 2021-03-27 14:45:00 Outpatient Sang [facility]ANCIE [facility] [id number] [facility] 2021-03-25 14:30:00 2021-03-25 14:30:00 Outpatient Sang [facility] [id number] [facility] 2021-03-15 08:00:00 2021-03-15 08:00:00 Outpatient Sang [facility]ANCIE [facility] [id number] [facility] 2021-03-15 08:00:00 2021-03-15 08:00:00 Outpatient Sang FRANCIE [facility] [id number] [facility] 2021-03-15 07:40:23 2021-03-15 07:55:23 Office Visit Francie [facility] SINDY?[facility] 1.2.840.114 350.1.13.10 4.2.7.2.686 [id number] [facility] 2021-03-12 00:00:00 2021-03-12 00:00:00 Orders Only Doctor Unassigned, [facility] 1.2840.114 350.1.13.10 4.2.7.2.686 [id number] [facility] 2021-03-12 00:00:00 2021-03-12 00:00:00 Telephone Francie [facility] 1.2840.114 350.1.13.10 4.2.7.2.686 [id number] [facility] 2021-02-26 13:59:08 2021-02-26 15:13:32 Office Visit [place] [facility] 1.2.114 350.1.13.10 4.2.7.2.686 [id number] [facility] 2021-02-26 14:45:00 2021-02-26 14:45:00 Outpatient R [facility]ANCIE [facility] [id number] [facility] 2021-02-25 15:30:00 2021-02-25 15:30:00 Outpatient Sang [facility]MO[facility] [id number] [facility] 2021-02-22 00:00:00 2021-02-22 00:00:00 Orders Only Doctor Unassigned, [facility] 1.2.114 350.1.13.10 4.2.7.2.686 [id number] [facility] 2019-12-06 14:57:53 2019-12-06 23:59:00 Hospital Encounter Radiology [facility] 1.20.114 350.1.13.10 4.2.7.2.686 [id number] 2019-12-06 00:00:00 2019-12-06 00:00:00 Outpatient R [facility]Y [facility] [id number] [facility] 2019-12-06 00:00:00 2019-12-06 00:00:00 Orders Only Doctor Unassigned, [facility] 1.2.840.114 350.1.13.10 4.2.7.2.686 [id number] 2019-11-24 08:30:00 2019-11-24 08:30:00 Outpatient [facility] [id number] [facility] 2019-11-11 09:48:40 2019-11-11 10:03:40 Senior Site Manager Visit 2, [facility] 1.2.840.114 350.1.13.10 4.2.7.2.686 [id number] 2019-11-11 08:30:00 2019-11-11 08:30:00 Outpatient R EUGENIO ORLY [facility] [id number] [facility] 2019-11-11 08:12:50 2019-11-11 08:27:50 Office Visit Beulah Catalannifer [facility] 1.2.840.114 350.1.13.10 4.2.7.2.686 [id number] 2019-11-11 00:00:00 2019-11-11 00:00:00 Orders Only Doctor Unassigned, [facility] 1.2840.114 350.1.13.10 4.2.7.2.686 [id number] 2019-06-15 07:14:00 2019-06-15 07:14:00 Outpatient Tess-Mbayo _A_AH VFP VFP [id number] [facility] 2019-06-15 07:14:00 2019-06-15 07:14:00 Outpatient Tess-Mbayo _A_AH [facility] [id number] Sam zavala 2019-05-18 13:45:00 2019-05-18 14:29:31 Outpatient Sang ETHAN CISNEROS [facility] [id number] [facility] 2019-05-09 16:15:00 2019-05-09 16:19:10 [facility] [id number] [facility] 2019-05-02 13:45:00 2019-05-02 14:02:29 Outpatient MALCOLM SHAHTT [facility] [id number] [facility] 2019-01-26 14:15:00 2019-01-26 14:40:36 Outpatient Sang ETHAN CISNEROS [facility] [id number] [facility] Results Test Description Test Time Test Comments Results Result Co mments Source TSH, THIRD [id number] 06:50:50* Test Item Value Reference Range Interpretation Comme [facility] TSH, THIRD GENERATION (test code = 2821) 4.550 UIU/ML 0.400-4.100 H FREE T4 (THYROXINE)2023-12-05 06:50:50* Test Item Value Reference Range Interpretation Comme nts FREE T4 (THYROXINE) (test co de = 2823) 1.20 NG/DL 0.80-1.90 FREE [id number] 06:50:50* Test Item Value Reference Range Interpretation Comme nts FREE T3 (test code = 4273) 3.1 PG/ML 2.2-4.2 UNLESS OTHERWISE INDICATED, ALL TESTING PERFORMED AT [facility] [address] [place] [address] HEALTH PLAN MANAGER: DAMIÁN ELIZONDO M.D. CLIA NUMBER [id number] [place] [id number] COMPREHENSIVE METABOLIC [id number] 06:38:38* Test Item Value Reference Range Interpretation Comme nts GLUCOSE (test code = 2217) 232 MG/DL 70-99 H BUN (test code = 2208) 19 MG/DL 8-23 CREATININE (test code = 2214) 0.96 MG/DL 0.80-1.40 eGFR (2020 CKD-EPI) (test co de = 39923) 88 ML/MIN/1.73 >60 CALC BUN/CREAT (test code = 2234) 20 RATIO 6-28 SODIUM (test code = 2230) 141 MEQ/L 133-146 POTASSIUM (test code = 2227) 4.4 MEQ/L 3.5-5.4 CHLORIDE (test code = 2214) 102 MEQ/L 95-107 CARBON DIOXIDE (test code = 2205) 24 MEQ/L 19-31 CALCIUM (test code = 2208) 9.5 MG/DL 8.5-10.5 PROTEIN, TOTAL (test code = 2228) 6.6 G/DL 6.1-8.3 ALBUMIN (test code = 2200) 4.1 G/DL 3.5-5.2 CALC GLOBULIN (test code = 2239) 2.5 G/DL 1.9-3.7 CALC A/G RATIO (test code = 2233) 1.6 RATIO 1.0-2.6 BILIRUBIN, TOTAL (test code = 2206) 0.4 MG/DL <=1.2 ALKALINE PHOSPHATASE (test code = 2203) 85 U/L 40-123 AST (test code = 2217) 17 U/L 9-50 ALT (test code = 2218) 16 U/L 5-50 LIPID [id number] 06:38:38* Test Item Value Reference Range Interpretation Comme nts CHOLESTEROL (test code = 2209) 167 MG/DL <200 TRIGLYCERIDES (test code = 2231) 101 MG/DL <150 HDL CHOLESTEROL (test code = 2219) 68 MG/DL >39 CALC LDL CHOL (test code = 2236) 81 MG/DL <100 NOTE: CALCULATED LDL IS BASED ON LEEROY-KHANNA METHOD WHICHINCLUDES ADJUSTABLE TRIGLYCERIDE:VLDL CHOLESTEROL RATIO.THIS FACTOR VARIES BY MEASURED TRIGLYCERIDE AND NON-HDLCHOLESTEROL CONCENTRATIONS WITH INCREASED CALCULATED LDL SEENIN HIGHER TRIGLYCERIDE OR LOWER NON-HDL SPECIMENS. FOR MOREINFORMATION, SEE CLIENT ANNOUNCEMENT AT [email or web address] RISK RATIO LDL/HDL (test code = 223) 1.19 RATIO <3.55 CBC W/AUTO DIFF WITH [id number] 03:07:40* Test Item Value Reference Range Interpretation Comme nts WBC (test code = 1001) 6.0 K/UL 3.5-11.0 RBC (test code = 1002) 4.52 M/UL 4.50-6.10 HEMOGLOBIN (test code = 1003) 12.7 G/DL 13.5-17.0 L HEMATOCRIT (test code = 1004) 40.9 % 40.0-51.0 MCV (test code = 1005) 90.5 fL 80.0-99.0 MCH (test code = 1006) 28.1 PG 25.0-33.0 MCHC (test code = 1007) 31.1 G/DL 31.0-36.0 RDW (test code = 1038) 13.1 % 11.5-15.0 NEUTROPHILS (test code = 1008) 68.8 % LYMPHOCYTES (test code = 1010) 20.5 % MONOCYTES (test code = 1011) 7.7 % EOSINOPHILS (test code = 1012) 2.2 % BASOPHILS (test code = 1013) 0.5 % IMMATURE GRANULOCYTES (test code = 1036) 0.3 % NUCLEATED RBCS (test code = 1065) 0.0 /100 WBC'S See_Comment [Automated messa ge] The system which generated this result transmitted reference range: 0.0. The reference range was not used to interpret this result as normal/abnormal. PLATELET COUNT (test code = 1015) 166 K/UL 130-400 ABSOLUTE NEUTROPHILS (test code = 1066) 4.14 K/UL 1.50-7.50 ABSOLUTE LYMPHOCYTES (test code = 1067) 1.23 K/UL 1.00-4.00 ABSOLUTE MONOCYTES (test code = 1068) 0.46 K/UL 0.20-1.00 ABSOLUTE EOSINOPHILS (test code = 1040) 0.13 K/UL 0.00-0.50 ABSOLUTE BASOPHILS (test code = 1069) 0.03 K/UL 0.00-0.20 ABS IMMATURE GRANULOCYTES (test code = 1020) 0.02 K/UL 0.00-0.10 ABS NUCLEATED RBCS (test code = 41144) 0.00 K/UL 0.00-0.11 CBC W/AUTO [id number] 00:00:00* Test Item Value Reference Range Interpretation Comme nts WBC (test code = 1001) 6.0 K/UL RBC (test code = 1002) 4.52 M/UL HEMOGLOBIN (test code = 1003) 12.7 G/DL HEMATOCRIT (test code = 1004) 40.9 % MCV (test code = 1005) 90.5 fL MCH (test code = 1006) 28.1 PG MCHC (test code = 1007) 31.1 G/DL RDW (test code = 1038) 13.1 % NEUTROPHILS (test code = 1008) 68.8 % LYMPHOCYTES (test code = 1010) 20.5 % MONOCYTES (test code = 1011) 7.7 % EOSINOPHILS (test code = 1012) 2.2 % BASOPHILS (test code = 1013) 0.5 % IMMATURE GRANULOCYTES (test code = 1036) 0.3 % NUCLEATED RBCS (test code = 1065) 0.0 /100WBC'S PLATELET COUNT (test code = 1015) 166 K/UL ABSOLUTE NEUTROPHILS (test c ode = 1066) 4.14 K/UL ABSOLUTE LYMPHOCYTES (test c ode = 1067) 1.23 K/UL ABSOLUTE MONOCYTES (test cod e = 1068) 0.46 K/UL ABSOLUTE EOSINOPHILS (test c ode = 1040) 0.13 K/UL ABSOLUTE BASOPHILS (test cod e = 1069) 0.03 K/UL ABS IMMATURE GRANULOCYTES (t est code = 1020) 0.02 K/UL ABS NUCLEATED RBCS (test cod e = 24000) 0.00 K/UL [place] [facility]OL[facility] [id number] 00:00:00* Test Item Value Reference Range Interpretation Comme nts GLUCOSE (test code = 2217) 232 MG/DL BUN (test code = 2208) 19 MG/DL CREATININE (test code = 2214) 0.96 MG/DL eGFR (2020 CKD-EPI) (test co de = 25678) 88 ML/MIN/1.73 CALC BUN/CREAT (test code = 2235) 20 RATIO SODIUM (test code = 2231) 141 MEQ/L POTASSIUM (test code = 2228) 4.4 MEQ/L CHLORIDE (test code = 2215) 102 MEQ/L CARBON DIOXIDE (test code = 2206) 24 MEQ/L CALCIUM (test code = 2209) 9.5 MG/DL PROTEIN, TOTAL (test code = 2229) 6.6 G/DL ALBUMIN (test code = 2201) 4.1 G/DL CALC GLOBULIN (test code = 2240) 2.5 G/DL CALC A/G RATIO (test code = 2234) 1.6 RATIO BILIRUBIN, TOTAL (test code = 2207) 0.4 MG/DL ALKALINE PHOSPHATASE (test code = 2204) 85 U/L AST (test code = 2218) 17 U/L ALT (test code = 2219) 16 U/L Los RankinLIPID [id number] 00:00:00* Test Item Value Reference Range Interpretation Comme nts CHOLESTEROL (test code = 2210) 167 MG/DL TRIGLYCERIDES (test code = 2232) 101 MG/DL HDL CHOLESTEROL (test code = 2220) 68 MG/DL CALC LDL CHOL (test code = 2237) 81 MG/DL RISK RATIO LDL/HDL (test cod e = 2238) 1.19 RATIO [place] RankinHEMOGLOBIN [id number] 00:00:00* Test Item Value Reference Range Interpretation Comme nts HEMOGLOBIN A1c (test code = 47306) 8.9 % Los RankinTSH, THIRD [id number] 00:00:00* Test Item Value Reference Range Interpretation Comme nts TSH, THIRD GENERATION (test code = 2821) 4.550 UIU/ML Los RankinFREE T4 (THYROXINE)2023-12-05 00:00:00* Test Item Value Reference Range Interpretation Comme nts FREE T4 (THYROXINE) (test co de = 2823) 1.20 NG/DL Los RankinFREE [id number] 00:00:00* Test Item Value Reference Range Interpretation Comme nts FREE T3 (test code = 4273) 3.1 PG/ML Los RankinLIPID [id number] 00:00:00* Test Item Value Reference Range Interpretation Comme nts CHOLESTEROL (test code = 2210) 199 MG/DL TRIGLYCERIDES (test code = 2232) 207 MG/DL HDL CHOLESTEROL (test code = 2220) 55 MG/DL CALC LDL CHOL (test code = 2237) 112 MG/DL RISK RATIO LDL/HDL (test cod e = 2238) 2.04 RATIO Los RankinCOMPREHENSIVE METABOLIC [id number] 00:00:00* Test Item Value Reference Range Interpretation Comme nts GLUCOSE (test code = 2217) 263 MG/DL BUN (test code = 2208) 17 MG/DL CREATININE (test code = 2214) 1.18 MG/DL eGFR (2020 CKD-EPI) (test co de = 94670) 69 ML/MIN/1.73 CALC BUN/CREAT (test code = 2235) 14 RATIO SODIUM (test code = 223) 137 MEQ/L POTASSIUM (test code = 2228) 4.9 MEQ/L CHLORIDE (test code = 2215) 98 MEQ/L CARBON DIOXIDE (test code = 2206) 29 MEQ/L CALCIUM (test code = 2209) 9.7 MG/DL PROTEIN, TOTAL (test code = 2229) 7.1 G/DL ALBUMIN (test code = 220) 4.4 G/DL CALC GLOBULIN (test code = 2240) 2.7 G/DL CALC A/G RATIO (test code = 2234) 1.6 RATIO BILIRUBIN, TOTAL (test code = 7) 0.4 MG/DL ALKALINE PHOSPHATASE (test code = 2203) 91 U/L AST (test code = 8) 19 U/L ALT (test code = 2219) 19 U/L [place] [id number] 00:00:00* Test Item Value Reference Range Interpretation Comme nts TESTOSTERONE (test code = 2830) 469 NG/DL [place] RankinTSH, THIRD [id number] 00:00:00* Test Item Value Reference Range Interpretation Comme nts TSH, THIRD GENERATION (test code = 2821) 5.950 UIU/ML Los RankinPSA, [id number] 00:00:00* Test Item Value Reference Range Interpretation Comme nts PSA, TOTAL (test code = 2606) 0.22 NG/ML [place] RankinHEMOGLOBIN [id number] 00:00:00* Test Item Value Reference Range Interpretation Comme nts HEMOGLOBIN A1c (test code = 42522) 9.2 % Los RankinCBC W/AUTO [id number] 00:00:00* Test Item Value Reference Range Interpretation Comme nts WBC (test code = 1001) 6.7 K/UL RBC (test code = 1002) 5.50 M/UL HEMOGLOBIN (test code = 1003) 15.1 G/DL HEMATOCRIT (test code = 1004) 48.6 % MCV (test code = 1005) 88.4 fL MCH (test code = 1006) 27.5 PG MCHC (test code = 1007) 31.1 G/DL RDW (test code = 1038) 11.8 % NEUTROPHILS (test code = 1008) 71.0 % LYMPHOCYTES (test code = 1010) 18.9 % MONOCYTES (test code = 1011) 7.9 % EOSINOPHILS (test code = 1012) 1.5 % BASOPHILS (test code = 1013) 0.6 % IMMATURE GRANULOCYTES (test code = 1036) 0.1 % NUCLEATED RBCS (test code = 1065) 0.0 /100WBC'S PLATELET COUNT (test code = 1015) 188 K/UL ABSOLUTE NEUTROPHILS (test c ode = 1066) 4.73 K/UL ABSOLUTE LYMPHOCYTES (test c ode = 1067) 1.26 K/UL ABSOLUTE MONOCYTES (test cod e = 1068) 0.53 K/UL ABSOLUTE EOSINOPHILS (test c ode = 1040) 0.10 K/UL ABSOLUTE BASOPHILS (test cod e = 1069) 0.04 K/UL ABS IMMATURE GRANULOCYTES (t est code = 1020) 0.01 K/UL ABS NUCLEATED RBCS (test cod e = 15117) 0.00 K/UL Los RankinPSA, [id number] 04:14:44* Test Item Value Reference Range Interpretation Comme nts PSA, TOTAL (test code = 2606) 0.12 NG/ML <=4.00 NOTE: Methodolog y is Josefina Malcom Electrochemiluminescence Immunoassay traceable to WHO reference standard 96/760. TSH, THIRD [id number] 04:14:44* Test Item Value Reference Range Interpretation Comme nts TSH, THIRD GENERATION (test code = 2821) 2.490 UIU/ML 0.400-4.100 UNLESS OTHERWISE INDICATED, ALL TESTING PERFORMED AT [facility] [address] [place] [address], [place] [address] HEALTH PLAN MANAGER: DAMIÁN ELIZONDO M.D. CLIA NUMBER [id number] [place]. [id number] HEMOGLOBIN [id number] 02:37:23* Test Item Value Reference Range Interpretation Comme nts HEMOGLOBIN A1c (test code = 55005) 7.3 % 4.2-5.6 H [employer] GUIDELINES FOR HGB A1C: [...] ETC.). CONSIDER ALTERNATE TESTING OR LABORATORY CONSULTATION. HEMOGLOBIN [id number] 00:00:00* Test Item Value Reference Range Interpretation Comme [facility] HEMOGLOBIN A1c (test code = 10775) 7.3 % [place] FooteA, [id number] 00:00:00* Test Item Value Reference Range Interpretation Comme eunice PSA, TOTAL (test code = 2606) 0.12 NG/ML [place], THIRD [id number] 00:00:00* Test Item Value Reference Range Interpretation Comme [facility] TSH, THIRD GENERATION (test code = 2821) 2.490 UIU/ML [place] RankinHEMOGLOBIN [id number] 00:00:00* Test Item Value Reference Range Interpretation Comme [facility] HEMOGLOBIN A1c (test code = 96514) 7.3 % [place] FooteA, [id number] 00:00:00* Test Item Value Reference Range Interpretation Comme eunice PSA, TOTAL (test code = 2606) 0.12 NG/ML [place] McneilH, THIRD [id number] 00:00:00* Test Item Value Reference Range Interpretation Comme [facility] TSH, THIRD GENERATION (test code = 2821) 2.490 UIU/ML [place] RankinWmlcjzM-[id number] 12:25:10* Test Item Value Reference Range Interpretation Comme [facility] D-DIMER (test code = 1405) 0.34 UG/ML FEU <=0.49 NOTE: Provided r eference range is established for evaluation of Deep Venous Thrombosis/Pulmonary Embolus (DVT/PE). Results below cutoff value of <=0.49 UG/ML FEU have a high negative predictive value forDVT/PE. No reference range is established for disseminatedintra-vascul ar coagulation (DIC). UNLESS OTHERWISE INDICATED, ALL TESTING PERFORMED AT [facility] [address] [place] [address] HEALTH PLAN MANAGER: DAMIÁN ELIZONDO M.D. [place] NUMBER [id number] [place]. [id number] THYROID II PROFILE (TU,T4,FTI,TSH)2023-03-18 06:28:43* Test Item Value Reference Range Interpretation Comme nts T-UPTAKE (test code = 2817) 30.2 % 24.3-39.0 THYROX. BIND. CAPAC. (test c ode = 75511) 1.1 0.8-1.3 T4 (THYROXINE) (test code = 2819) 8.3 UG/DL 4.5-10.5 CORRECTED T4 (FTI) (test cod e = 2820) 7.5 UG/DL 4.2-11.6 TSH, THIRD GENERATION (test code = 2821) 4.610 UIU/ML 0.400-4.100 H ALBUMIN/CREATININE RATIO, URINE, [id number] 05:26:06* Test Item Value Reference Range Interpretation Comme nts CREATININE, URINE, CONC. (test code = 207) 166.8 MG/DL NOT ESTAB ALBUMIN, URINE, RANDOM (test code = 23698) 2.1 MG/DL NOT ESTAB CALC ALBUMIN/CREAT, RND (test code = 50268) 13 MG/G <30 Note: Albumin/Creatinine ratio reference interval reflects ADA and NKF guidelines. COMPREHENSIVE METABOLIC [id number] 03:58:08* Test Item Value Reference Range Interpretation Comme nts GLUCOSE (test code = 2217) 149 MG/DL 70-99 H BUN (test code = 2207) 22 MG/DL 8-23 CREATININE (test code = 4) 1.01 MG/DL 0.80-1.40 eGFR (2020 CKD-EPI) (test co de = 60343) 84 ML/MIN/1.73 >60 CALC BUN/CREAT (test code = 2235) 22 RATIO 6-28 SODIUM (test code = 223) 143 MEQ/L 133-146 POTASSIUM (test code = 8) 5.2 MEQ/L 3.5-5.4 CHLORIDE (test code = 2215) 104 MEQ/L 95-107 CARBON DIOXIDE (test code = 6) 28 MEQ/L 19-31 CALCIUM (test code = 2208) 9.6 MG/DL 8.5-10.5 PROTEIN, TOTAL (test code = 2228) 7.1 G/DL 6.1-8.3 ALBUMIN (test code = 1) 4.6 G/DL 3.5-5.2 CALC GLOBULIN (test code = 2240) 2.5 G/DL 1.9-3.7 CALC A/G RATIO (test code = 4) 1.8 RATIO 1.0-2.6 BILIRUBIN, TOTAL (test code = 2206) 0.3 MG/DL <=1.2 ALKALINE PHOSPHATASE (test code = 2203) 82 U/L 40-123 AST (test code = 2218) 20 U/L 9-50 ALT (test code = 221) 19 U/L 5-50 LIPID [id number] 03:58:08* Test Item Value Reference Range Interpretation Comme nts CHOLESTEROL (test code = 0) 290 MG/DL <200 H TRIGLYCERIDES (test code = 2) 91 MG/DL <150 HDL CHOLESTEROL (test code = 2219) 87 MG/DL >39 CALC LDL CHOL (test code = 2236) 182 MG/DL <100 H NOTE: CALCULATED LDL IS BASED ON LEEROY-KHANNA METHOD WHICHINCLUDES ADJUSTABLE TRIGLYCERIDE:VLDL CHOLESTEROL RATIO.THIS FACTOR VARIES BY MEASURED TRIGLYCERIDE AND NON-HDLCHOLESTEROL CONCENTRATIONS WITH INCREASED CALCULATED LDL SEENIN HIGHER TRIGLYCERIDE OR LOWER NON-HDL SPECIMENS. FOR MOREINFORMATION, SEE CLIENT ANNOUNCEMENT AT [email or web address] RISK RATIO LDL/HDL (test code = 2238) 2.09 RATIO <3.55 HEMOGLOBIN [id number] 02:39:28* Test Item Value Reference Range Interpretation Comme nts HEMOGLOBIN A1c (test code = 06698) 7.1 % 4.2-5.6 H [employer] GUIDELINES FOR HGB A1C: [...] OR LABORATORY CONSULTATION. CBC W/AUTO DIFF WITH [id number] 01:56:24* Test Item Value Reference Range Interpretation [...] 0.00-0.10 ABS NUCLEATED RBCS (test code = 07664) 0.00 K/UL 0.00-0.11 CBC W/AUTO [id number] 00:00:00* Test Item Value Reference Range Interpretation Comme nts WBC (test code = 1001) 6.0 K/UL RBC (test code = 1002) 4.49 M/UL HEMOGLOBIN (test code = 1003) 12.9 G/DL HEMATOCRIT (test code = 1004) 40.1 % MCV (test code = 1005) 89.3 fL MCH (test code = 1006) 28.7 PG MCHC (test code = 1007) 32.2 G/DL RDW (test code = 1038) 12.4 % NEUTROPHILS (test code = 1008) 66.0 % LYMPHOCYTES (test code = 1010) 23.3 % MONOCYTES (test code = 1011) 7.9 % EOSINOPHILS (test code = 1012) 1.8 % BASOPHILS (test code = 1013) 0.5 % IMMATURE GRANULOCYTES (test code = 1036) 0.5 % NUCLEATED RBCS (test code = 1065) 0.0 /100WBC'S PLATELET COUNT (test code = 1015) 213 K/UL ABSOLUTE NEUTROPHILS (test c ode = 1066) 3.94 K/UL ABSOLUTE LYMPHOCYTES (test c ode = 1067) 1.39 K/UL ABSOLUTE MONOCYTES (test cod e = 1068) 0.47 K/UL ABSOLUTE EOSINOPHILS (test c ode = 1040) 0.11 K/UL ABSOLUTE BASOPHILS (test cod e = 1069) 0.03 K/UL ABS IMMATURE GRANULOCYTES (t est code = 1020) 0.03 K/UL ABS NUCLEATED RBCS (test cod e = 99029) 0.00 K/UL [place] Elva ChuchoCOMPREHENSIVE METABOLIC [id number] 00:00:00* Test Item Value Reference Range Interpretation Comme nts GLUCOSE (test code = 2217) 149 MG/DL BUN (test code = 2208) 22 MG/DL CREATININE (test code = 2214) 1.01 MG/DL eGFR (2020 CKD-EPI) (test co de = 15223) 84 ML/MIN/1.73 CALC BUN/CREAT (test code = 2235) 22 RATIO SODIUM (test code = 2231) 143 MEQ/L POTASSIUM (test code = 2228) 5.2 MEQ/L CHLORIDE (test code = 2215) 104 MEQ/L CARBON DIOXIDE (test code = 2206) 28 MEQ/L CALCIUM (test code = 2209) 9.6 MG/DL PROTEIN, TOTAL (test code = 2229) 7.1 G/DL ALBUMIN (test code = 2201) 4.6 G/DL CALC GLOBULIN (test code = 2240) 2.5 G/DL CALC A/G RATIO (test code = 2234) 1.8 RATIO BILIRUBIN, TOTAL (test code = 2207) 0.3 MG/DL ALKALINE PHOSPHATASE (test code = 2204) 82 U/L AST (test code = 2218) 20 U/L ALT (test code = 2219) 19 U/L Los RankinLIPID [id number] 00:00:00* Test Item Value Reference Range Interpretation Comme nts CHOLESTEROL (test code = 2210) 290 MG/DL TRIGLYCERIDES (test code = 2232) 91 MG/DL HDL CHOLESTEROL (test code = 2220) 87 MG/DL CALC LDL CHOL (test code = 2237) 182 MG/DL RISK RATIO LDL/HDL (test cod e = 2238) 2.09 RATIO [place] RankinHEMOGLOBIN [id number] 00:00:00* Test Item Value Reference Range Interpretation Comme nts HEMOGLOBIN A1c (test code = 11489) 7.1 % [place] RankinTHYROID II PROFILE (TU, T4, T7, TSH)2023-03-18 00:00:00* Test Item Value Reference Range Interpretation Comme nts T-UPTAKE (test code = 2817) 30.2 % THYROX. BIND. CAPAC. (test c ode = 15486) 1.1 T4 (THYROXINE) (test code = 2819) 8.3 UG/DL CORRECTED T4 (FTI) (test cod e = 2820) 7.5 UG/DL TSH, THIRD GENERATION (test code = 2821) 4.610 UIU/ML [place] RankinALBUMIN/CREATININE RATIO, RANDOM [id number] 00:00:00* Test Item Value Reference Range Interpretation Comme nts CREATININE, URINE, CONC. (te st code = 2072) 166.8 MG/DL ALBUMIN, URINE, RANDOM (test code = 80016) 2.1 MG/DL CALC ALBUMIN/CREAT, RND (chalo t code = 50736) 13 MG/G [place] RankinKtssfhU-[id number] 00:00:00* Test Item Value Reference Range Interpretation Comme nts D-DIMER (test code = 1405) 0.34 UG/MLFEU [place] RankinCBC W/AUTO [id number] 00:00:00* Test Item Value Reference Range Interpretation Comme nts WBC (test code = 1001) 6.0 K/UL RBC (test code = 1002) 4.49 M/UL HEMOGLOBIN (test code = 1003) 12.9 G/DL HEMATOCRIT (test code = 1004) 40.1 % MCV (test code = 1005) 89.3 fL MCH (test code = 1006) 28.7 PG MCHC (test code = 1007) 32.2 G/DL RDW (test code = 1038) 12.4 % NEUTROPHILS (test code = 1008) 66.0 % LYMPHOCYTES (test code = 1010) 23.3 % MONOCYTES (test code = 1011) 7.9 % EOSINOPHILS (test code = 1012) 1.8 % BASOPHILS (test code = 1013) 0.5 % IMMATURE GRANULOCYTES (test code = 1036) 0.5 % NUCLEATED RBCS (test code = 1065) 0.0 /100WBC'S PLATELET COUNT (test code = 1015) 213 K/UL ABSOLUTE NEUTROPHILS (test c ode = 1066) 3.94 K/UL ABSOLUTE LYMPHOCYTES (test c ode = 1067) 1.39 K/UL ABSOLUTE MONOCYTES (test cod e = 1068) 0.47 K/UL ABSOLUTE EOSINOPHILS (test c ode = 1040) 0.11 K/UL ABSOLUTE BASOPHILS (test cod e = 1069) 0.03 K/UL ABS IMMATURE GRANULOCYTES (t est code = 1020) 0.03 K/UL ABS NUCLEATED RBCS (test cod e = 53063) 0.00 K/UL [place] RankinCOMPREHENSIVE METABOLIC [id number] 00:00:00* Test Item Value Reference Range Interpretation Comme nts GLUCOSE (test code = 2217) 149 MG/DL BUN (test code = 2208) 22 MG/DL CREATININE (test code = 2214) 1.01 MG/DL eGFR (2020 CKD-EPI) (test co de = 51299) 84 ML/MIN/1.73 CALC BUN/CREAT (test code = 2235) 22 RATIO SODIUM (test code = 2231) 143 MEQ/L POTASSIUM (test code = 2228) 5.2 MEQ/L CHLORIDE (test code = 2215) 104 MEQ/L CARBON DIOXIDE (test code = 2206) 28 MEQ/L CALCIUM (test code = 2209) 9.6 MG/DL PROTEIN, TOTAL (test code = 2229) 7.1 G/DL ALBUMIN (test code = 2201) 4.6 G/DL CALC GLOBULIN (test code = 2240) 2.5 G/DL CALC A/G RATIO (test code = 2234) 1.8 RATIO BILIRUBIN, TOTAL (test code = 2207) 0.3 MG/DL ALKALINE PHOSPHATASE (test code = 2204) 82 U/L AST (test code = 2218) 20 U/L ALT (test code = 2219) 19 U/L [place] RankinLIPID [id number] 00:00:00* Test Item Value Reference Range Interpretation Comme nts CHOLESTEROL (test code = 2210) 290 MG/DL TRIGLYCERIDES (test code = 2232) 91 MG/DL HDL CHOLESTEROL (test code = 2220) 87 MG/DL CALC LDL CHOL (test code = 2237) 182 MG/DL RISK RATIO LDL/HDL (test cod e = 2238) 2.09 RATIO [place] RankinHEMOGLOBIN [id number] 00:00:00* Test Item Value Reference Range Interpretation Comme nts HEMOGLOBIN A1c (test code = 86575) 7.1 % [place] RankinTHYROID II PROFILE (TU, T4, T7, TSH)2023-03-18 00:00:00* Test Item Value Reference Range Interpretation Comme nts T-UPTAKE (test code = 2817) 30.2 % THYROX. BIND. CAPAC. (test c ode = 01596) 1.1 T4 (THYROXINE) (test code = 2819) 8.3 UG/DL CORRECTED T4 (FTI) (test cod e = 2820) 7.5 UG/DL TSH, THIRD GENERATION (test code = 2821) 4.610 UIU/ML [place] RankinALBUMIN/CREATININE RATIO, RANDOM [id number] 00:00:00* Test Item Value Reference Range Interpretation Comme nts CREATININE, URINE, CONC. (te st code = 2072) 166.8 MG/DL ALBUMIN, URINE, RANDOM (test code = 34076) 2.1 MG/DL CALC ALBUMIN/CREAT, RND (chalo t code = 80518) 13 MG/G [place] RankinJkwcjuB-[id number] 00:00:00* Test Item Value Reference Range Interpretation Comme eunice D-DIMER (test code = 1405) 0.34 UG/MLFEU [place] [id number] 12:56:04SPECIMEN NUMBER: [id number] CULTURE, URINE SPECIMEN NUMBER: [id number] SPECIMEN COMMENT: URINE SOURCE: URINE REPORT STATUS: FINAL FINAL REPORT: 11/19/2022 10-50,000 CFU/ML UROGENITAL BRITTANY PRESENT NO COMMON PATHOGENS UNLESS OTHERWISE INDICATED, ALL TESTING PERFORMED AT [facility] [address] [place] [address] HEALTH PLAN MANAGER: DAMIÁN ELIZONDO M.D. CLIA NUMBER [id number] [facility] [place]. [id number], [id number] 00:00:00* Test Item Value Reference Range Interpretation Comme nts CULTURE, URINE (test code = 64094) SPECIMEN NUMBER: [id number] [place] [id number] 00:00:00* Test Item Value Reference Range Interpretation Comme nts CULTURE, URINE (test code = 88191) SPECIMEN NUMBER: [id number] [place] RankinVITAMIN [id number] 06:43:59* Test Item Value Reference Range Interpretation Comme eunice VITAMIN B-12 (test code = 2840) 1362 PG/ML 200-950 H VITAMIN D, 25 [id number] 03:44:26* Test Item Value Reference Range Interpretation [...] . . . NG/ML 30-100 TSH, THIRD [id number] 03:44:15* Test Item Value Reference Range Interpretation Comme nts TSH, THIRD GENERATION (test code = 2821) 0.061 UIU/ML 0.400-4.100 L PSA, [id number] 03:44:15* Test Item Value Reference Range Interpretation Comme nts PSA, TOTAL (test code = 2606) <0.02 NG/ML See_Comment NOTE: Methodolog y is Josefina Malcom Electrochemiluminescence Immunoassay traceable to WHO reference standard 96/760. UNLESS OTHERWISE INDICATED, ALL TESTING PERFORMED AT [facility] [address] [place] [address] HEALTH PLAN MANAGER: DAMIÁN ELIZONDO M.D. [place] NUMBER [id number] [facility]. [id number] [Automated message] The system which generated this result transmitted reference range: <=4.00. The reference range was not used to interpret this result as normal/abnormal. [id number] 03:44:08* Test Item Value Reference Range Interpretation Comme nts TESTOSTERONE (test code = 2830) 34 NG/DL 300-720 L [id number] 03:43:57* Test Item Value Reference Range Interpretation Comme nts MAGNESIUM (test code = 2226) 2.3 MG/DL 1.6-2.6 HEMOGLOBIN [id number] 02:50:35* Test Item Value Reference Range Interpretation Comme [facility] HEMOGLOBIN A1c (test code = 55169) 9.1 % 4.2-5.6 H [employer] GUIDELINES FOR HGB A1C: [...] ETC.). CONSIDER ALTERNATE TESTING OR LABORATORY CONSULTATION. HEMOGLOBIN [id number] 00:00:00* Test Item Value Reference Range Interpretation Comme [facility] HEMOGLOBIN A1c (test code = 75431) 9.1 % [place], THIRD [id number] 00:00:00* Test Item Value Reference Range Interpretation Comme nts TSH, THIRD GENERATION (test code = 2821) 0.061 UIU/ML [place] RankinVITAMIN [id number] 00:00:00* Test Item Value Reference Range Interpretation Comme nts VITAMIN B-12 (test code = 2840) 1362 PG/ML [place] RankinVITAMIN D, 25 [id number] 00:00:00* Test Item Value Reference Range Interpretation Comme nts VITAMIN D, 25 OH (test code = 4958) 40 NG/ML [place] [id number] 00:00:00* Test Item Value Reference Range Interpretation Comme nts MAGNESIUM (test code = 2226) 2.3 MG/DL [place] [id number] 00:00:00* Test Item Value Reference Range Interpretation Comme nts TESTOSTERONE (test code = 2830) 34 NG/DL [place] RankinPSA, [id number] 00:00:00* Test Item Value Reference Range Interpretation Comme nts PSA, TOTAL (test code = 2606) <0.02 NG/ML [place] RankinHEMOGLOBIN [id number] 00:00:00* Test Item Value Reference Range Interpretation Comme nts HEMOGLOBIN A1c (test code = 07693) 9.1 % [place] McneilH, THIRD [id number] 00:00:00* Test Item Value Reference Range Interpretation Comme nts TSH, THIRD GENERATION (test code = 2821) 0.061 UIU/ML [place] RankinVITAMIN [id number] 00:00:00* Test Item Value Reference Range Interpretation Comme nts VITAMIN B-12 (test code = 2840) 1362 PG/ML [place] RankinVITAMIN D, 25 [id number] 00:00:00* Test Item Value Reference Range Interpretation Comme nts VITAMIN D, 25 OH (test code = 4958) 40 NG/ML [place] [id number] 00:00:00* Test Item Value Reference Range Interpretation Comme nts MAGNESIUM (test code = 2226) 2.3 MG/DL [place] [id number] 00:00:00* Test Item Value Reference Range Interpretation Comme nts TESTOSTERONE (test code = 2830) 34 NG/DL [place] RankinPSA, [id number] 00:00:00* Test Item Value Reference Range Interpretation Comme nts PSA, TOTAL (test code = 2606) <0.02 NG/ML [place] RankinALBUMIN, URINE, [id number] 09:22:45* Test Item Value Reference Range Interpretation Comme nts ALBUMIN, URINE, RANDOM (test code = 19816) 2.0 MG/DL NOT ESTAB [facility] has impo rtant pathology staff changes effective 06/25/2022. New pathology staff will provide uninterrupted, excellent patient care and clinical consultation. See URL: [email or web address]. UNLESS OTHERWISE INDICATED, ALL TESTING PERFORMED AT [facility] [address] [place] [address] HEALTH PLAN MANAGER: DAMIÁN ELIZONDO M.D. CLIA NUMBER [id number] [place] [id number] TSH, THIRD [id number] 06:34:57* Test Item Value Reference Range Interpretation Comme nts TSH, THIRD GENERATION (test code = 2821) 0.045 UIU/ML 0.400-4.100 L LIPID [id number] 05:20:29* Test Item Value Reference Range Interpretation [...] SPECIMENS. FOR MOREINFORMATION, SEE CLIENT ANNOUNCEMENT AT [email or web address] [email or web address] RATIO LDL/HDL (test code = 2238) 1.60 RATIO <3.55 COMPREHENSIVE METABOLIC [id number] 05:20:29* Test Item Value Reference Range Interpretation Comme nts GLUCOSE (test code = 2217) 147 MG/DL 70-99 H BUN (test code = 2208) 21 MG/DL 8-23 CREATININE (test code = 2213) 0.97 MG/DL 0.80-1.40 eGFR (2020 CKD-EPI) (test code = ) 88 ML/MIN/1.73 >60 CALC BUN/CREAT (test code = 2234) 22 RATIO 6-28 SODIUM (test code = 2230) 142 MEQ/L 133-146 POTASSIUM (test code = 2227) 4.9 MEQ/L 3.5-5.4 CHLORIDE (test code = 2214) 105 MEQ/L 95-107 CARBON DIOXIDE (test code = 2205) 26 MEQ/L 19-31 CALCIUM (test code = [...] code = 2218) 24 U/L 5-50 HEMOGLOBIN [id number] 03:27:04* Test Item Value Reference Range Interpretation Comme nts HEMOGLOBIN A1c (test code = 42244) 7.2 % 4.2-5.6 H [employer] GUIDELINES FOR HGB A1C: [...] OR LABORATORY CONSULTATION. CBC W/AUTO DIFF WITH [id number] 03:07:08* Test Item Value Reference Range Interpretation [...] 0.00-0.10 ABS NUCLEATED RBCS (test code = 53768) 0.00 K/UL 0.00-0.11 CBC W/AUTO [id number] 00:00:00* Test Item Value Reference Range Interpretation Comme nts WBC (test code = 1001) 6.6 K/UL RBC (test code = 1002) 4.31 M/UL HEMOGLOBIN (test code = 1003) 11.8 G/DL HEMATOCRIT (test code = 1004) 36.3 % MCV (test code = 1005) 84.2 fL MCH (test code = 1006) 27.4 PG MCHC (test code = 1007) 32.5 G/DL RDW (test code = 1038) 12.3 % NEUTROPHILS (test code = 1008) 64.5 % LYMPHOCYTES (test code = 1010) 25.2 % MONOCYTES (test code = 1011) 8.1 % EOSINOPHILS (test code = 1012) 1.4 % BASOPHILS (test code = 1013) 0.5 % IMMATURE GRANULOCYTES (test code = 1036) 0.3 % NUCLEATED RBCS (test code = 1065) 0.0 /100WBC'S PLATELET COUNT (test code = 1015) 200 K/UL ABSOLUTE NEUTROPHILS (test c ode = 1066) 4.29 K/UL ABSOLUTE LYMPHOCYTES (test c ode = 1067) 1.67 K/UL ABSOLUTE MONOCYTES (test cod e = 1068) 0.54 K/UL ABSOLUTE EOSINOPHILS (test c ode = 1040) 0.09 K/UL ABSOLUTE BASOPHILS (test cod e = 1069) 0.03 K/UL ABS IMMATURE GRANULOCYTES (t est code = 1020) 0.02 K/UL ABS NUCLEATED RBCS (test cod e = 25863) 0.00 K/UL [place] RankinHEMOGLOBIN [id number] 00:00:00* Test Item Value Reference Range Interpretation Comme nts HEMOGLOBIN A1c (test code = 69220) 7.2 % Los RankinLIPID [id number] 00:00:00* Test Item Value Reference Range Interpretation Comme nts CHOLESTEROL (test code = 2210) 201 MG/DL TRIGLYCERIDES (test code = 2232) 126 MG/DL HDL CHOLESTEROL (test code = 2220) 68 MG/DL CALC LDL CHOL (test code = 2237) 109 MG/DL RISK RATIO LDL/HDL (test cod e = 2238) 1.60 RATIO [place] RankinCOMPREHENSIVE METABOLIC [id number] 00:00:00* Test Item Value Reference Range Interpretation Comme nts GLUCOSE (test code = 2217) 147 MG/DL BUN (test code = 2208) 21 MG/DL CREATININE (test code = 2214) 0.97 MG/DL eGFR (2020 CKD-EPI) (test co de = 83243) 88 ML/MIN/1.73 CALC BUN/CREAT (test code = 2235) 22 RATIO SODIUM (test code = 2231) 142 MEQ/L POTASSIUM (test code = 2228) 4.9 MEQ/L CHLORIDE (test code = 2215) 105 MEQ/L CARBON DIOXIDE (test code = 2206) 26 MEQ/L CALCIUM (test code = 2209) 10.0 MG/DL PROTEIN, TOTAL (test code = 2229) 6.7 G/DL ALBUMIN (test code = 2201) 4.2 G/DL CALC GLOBULIN (test code = 2240) 2.5 G/DL CALC A/G RATIO (test code = 2234) 1.7 RATIO BILIRUBIN, TOTAL (test code = 2207) 0.2 MG/DL ALKALINE PHOSPHATASE (test code = 2204) 89 U/L AST (test code = 2218) 23 U/L ALT (test code = 2219) 24 U/L Los RankinTSH, THIRD [id number] 00:00:00* Test Item Value Reference Range Interpretation Comme nts TSH, THIRD GENERATION (test code = 2821) 0.045 UIU/ML Los RankinALBUMIN, URINE, [id number] 00:00:00* Test Item Value Reference Range Interpretation Comme nts ALBUMIN, URINE, RANDOM (test code = 13897) 2.0 MG/DL Los RankinCBC W/AUTO [id number] 00:00:00* Test Item Value Reference Range Interpretation Comme nts WBC (test code = 1001) 6.6 K/UL RBC (test code = 1002) 4.31 M/UL HEMOGLOBIN (test code = 1003) 11.8 G/DL HEMATOCRIT (test code = 1004) 36.3 % MCV (test code = 1005) 84.2 fL MCH (test code = 1006) 27.4 PG MCHC (test code = 1007) 32.5 G/DL RDW (test code = 1038) 12.3 % NEUTROPHILS (test code = 1008) 64.5 % LYMPHOCYTES (test code = 1010) 25.2 % MONOCYTES (test code = 1011) 8.1 % EOSINOPHILS (test code = 1012) 1.4 % BASOPHILS (test code = 1013) 0.5 % IMMATURE GRANULOCYTES (test code = 1036) 0.3 % NUCLEATED RBCS (test code = 1065) 0.0 /100WBC'S PLATELET COUNT (test code = 1015) 200 K/UL ABSOLUTE NEUTROPHILS (test c ode = 1066) 4.29 K/UL ABSOLUTE LYMPHOCYTES (test c ode = 1067) 1.67 K/UL ABSOLUTE MONOCYTES (test cod e = 1068) 0.54 K/UL ABSOLUTE EOSINOPHILS (test c ode = 1040) 0.09 K/UL ABSOLUTE BASOPHILS (test cod e = 1069) 0.03 K/UL ABS IMMATURE GRANULOCYTES (t est code = 1020) 0.02 K/UL ABS NUCLEATED RBCS (test cod e = 79264) 0.00 K/UL [place] RankinHEMOGLOBIN [id number] 00:00:00* Test Item Value Reference Range Interpretation Comme nts HEMOGLOBIN A1c (test code = 58865) 7.2 % Los RankinLIPID [id number] 00:00:00* Test Item Value Reference Range Interpretation Comme nts CHOLESTEROL (test code = 2210) 201 MG/DL TRIGLYCERIDES (test code = 2232) 126 MG/DL HDL CHOLESTEROL (test code = 2220) 68 MG/DL CALC LDL CHOL (test code = 2237) 109 MG/DL RISK RATIO LDL/HDL (test cod e = 2238) 1.60 RATIO Los RankinCOMPREHENSIVE METABOLIC [id number] 00:00:00* Test Item Value Reference Range Interpretation Comme nts GLUCOSE (test code = 2217) 147 MG/DL BUN (test code = 2208) 21 MG/DL CREATININE (test code = 2214) 0.97 MG/DL eGFR (2020 CKD-EPI) (test co de = 00083) 88 ML/MIN/1.73 CALC BUN/CREAT (test code = 2235) 22 RATIO SODIUM (test code = 2231) 142 MEQ/L POTASSIUM (test code = 2228) 4.9 MEQ/L CHLORIDE (test code = 2215) 105 MEQ/L CARBON DIOXIDE (test code = 2206) 26 MEQ/L CALCIUM (test code = 2209) 10.0 MG/DL PROTEIN, TOTAL (test code = 2229) 6.7 G/DL ALBUMIN (test code = 2201) 4.2 G/DL CALC GLOBULIN (test code = 2240) 2.5 G/DL CALC A/G RATIO (test code = 2234) 1.7 RATIO BILIRUBIN, TOTAL (test code = 2207) 0.2 MG/DL ALKALINE PHOSPHATASE (test code = 2204) 89 U/L AST (test code = 2218) 23 U/L ALT (test code = 2219) 24 U/L [place], THIRD [id number] 00:00:00* Test Item Value Reference Range Interpretation Comme nts TSH, THIRD GENERATION (test code = 2821) 0.045 UIU/ML [place] RankinALBUMIN, URINE, [id number] 00:00:00* Test Item Value Reference Range Interpretation Comme nts ALBUMIN, URINE, RANDOM (test code = 38783) 2.0 MG/DL [place], THIRD [id number] 06:55:19* Test Item Value Reference Range Interpretation Comme nts TSH, THIRD GENERATION (test code = 2821) <0.010 UIU/ML 0.400-4.100 L [id number] 05:06:12* Test Item Value Reference Range Interpretation Comme nts MAGNESIUM (test code = 2226) 2.2 MG/DL 1.6-2.6 UNLESS OTHERWISE INDICATED, ALL TESTING PERFORMED [facility] [address] [place] [address] HEALTH PLAN MANAGER: AMOS ASENCIO M.D. CLIA NUMBER [id number] [place]. [id number] COMPREHENSIVE METABOLIC [id number] 05:05:57* Test Item Value Reference Range Interpretation Comme nts GLUCOSE (test code = 2217) 240 MG/DL 70-99 H BUN (test code = 2208) 17 MG/DL 8-23 CREATININE (test code = 2214) 0.84 MG/DL 0.80-1.40 eGFR (2020 CKD-EPI) (test code = 88734) 99 ML/MIN/1.73 >60 CALC BUN/CREAT (test code = 2235) 20 RATIO 6-28 SODIUM (test code = 2230) 140 MEQ/L 133-146 POTASSIUM (test code = 2227) 4.5 MEQ/L 3.5-5.4 CHLORIDE (test code = 5) 103 MEQ/L 95-107 CARBON DIOXIDE (test code = 2205) 27 MEQ/L 19-31 CALCIUM (test code = 2208) 9.4 MG/DL 8.5-10.5 PROTEIN, TOTAL (test code = 2228) 6.6 G/DL 6.1-8.3 ALBUMIN (test code = 2200) 4.3 G/DL 3.5-5.2 CALC GLOBULIN (test code = 2239) 2.3 G/DL 1.9-3.7 CALC A/G RATIO (test [...] U/L 9-50 H ALT (test code = 2218) 32 U/L 5-50 HEMOGLOBIN [id number] 03:41:37* Test Item Value Reference Range Interpretation Comme nts HEMOGLOBIN A1c (test code = 53705) 7.1 % 4.2-5.6 H [employer] GUIDELINES FOR HGB A1C: [...] OR LABORATORY CONSULTATION. CBC W/AUTO DIFF WITH [id number] 02:40:00* Test Item Value Reference Range Interpretation [...] = 1065) 0.0 /100 WBC'S See_Comment [Automated RPM [employer]] The system which generated this result [...] 0.00-0.10 ABS NUCLEATED RBCS (test code = 74168) 0.00 K/UL 0.00-0.11 COMPREHENSIVE METABOLIC [id number] 00:00:00* Test Item Value Reference Range Interpretation Comme nts GLUCOSE (test code = 2217) 240 MG/DL BUN (test code = 2208) 17 MG/DL CREATININE (test code = 2214) 0.84 MG/DL eGFR (2020 CKD-EPI) (test co de = 87549) 99 ML/MIN/1.73 CALC BUN/CREAT (test code = 2235) 20 RATIO SODIUM (test code = 2231) 140 MEQ/L POTASSIUM (test code = 2228) 4.5 MEQ/L CHLORIDE (test code = 2215) 103 MEQ/L CARBON DIOXIDE (test code = 2206) 27 MEQ/L CALCIUM (test code = 2209) 9.4 MG/DL PROTEIN, TOTAL (test code = 2229) 6.6 G/DL ALBUMIN (test code = 2201) 4.3 G/DL CALC GLOBULIN (test code = 2240) 2.3 G/DL CALC A/G RATIO (test code = 2234) 1.9 RATIO BILIRUBIN, TOTAL (test code = 2207) 0.3 MG/DL ALKALINE PHOSPHATASE (test code = 2204) 94 U/L AST (test code = 2218) 54 U/L ALT (test code = 2219) 32 U/L [place] [facility] W/AUTO [id number] 00:00:00* Test Item Value Reference Range Interpretation Comme nts WBC (test code = 1001) 5.8 K/UL RBC (test code = 1002) 4.44 M/UL HEMOGLOBIN (test code = 1003) 11.9 G/DL HEMATOCRIT (test code = 1004) 38.2 % MCV (test code = 1005) 86.0 fL MCH (test code = 1006) 26.8 PG MCHC (test code = 1007) 31.2 G/DL RDW (test code = 1038) 12.1 % NEUTROPHILS (test code = 1008) 69.3 % LYMPHOCYTES (test code = 1010) 21.9 % MONOCYTES (test code = 1011) 6.3 % EOSINOPHILS (test code = 1012) 1.7 % BASOPHILS (test code = 1013) 0.5 % IMMATURE GRANULOCYTES (test code = 1036) 0.3 % NUCLEATED RBCS (test code = 1065) 0.0 /100WBC'S PLATELET COUNT (test code = 1015) 184 K/UL ABSOLUTE NEUTROPHILS (test c ode = 1066) 3.98 K/UL ABSOLUTE LYMPHOCYTES (test c ode = 1067) 1.26 K/UL ABSOLUTE MONOCYTES (test cod e = 1068) 0.36 K/UL ABSOLUTE EOSINOPHILS (test c ode = 1040) 0.10 K/UL ABSOLUTE BASOPHILS (test cod e = 1069) 0.03 K/UL ABS IMMATURE GRANULOCYTES (t est code = 1020) 0.02 K/UL ABS NUCLEATED RBCS (test cod e = 15645) 0.00 K/UL oLs McneilH, THIRD [id number] 00:00:00* Test Item Value Reference Range Interpretation Comme eunice TSH, THIRD GENERATION (test code = 2821) <0.010 UIU/ML [place] RankinHEMOGLOBIN [id number] 00:00:00* Test Item Value Reference Range Interpretation Comme nts HEMOGLOBIN A1c (test code = 56198) 7.1 % [place] [id number] 00:00:00* Test Item Value Reference Range Interpretation Comme nts MAGNESIUM (test code = 2226) 2.2 MG/DL [place] RankinCOMPREHENSIVE METABOLIC [id number] 00:00:00* Test Item Value Reference Range Interpretation Comme nts GLUCOSE (test code = 2217) 240 MG/DL BUN (test code = 2208) 17 MG/DL CREATININE (test code = 2214) 0.84 MG/DL eGFR (2020 CKD-EPI) (test co de = 74715) 99 ML/MIN/1.73 CALC BUN/CREAT (test code = 2235) 20 RATIO SODIUM (test code = 2231) 140 MEQ/L POTASSIUM (test code = 2228) 4.5 MEQ/L CHLORIDE (test code = 2215) 103 MEQ/L CARBON DIOXIDE (test code = 2206) 27 MEQ/L CALCIUM (test code = 2209) 9.4 MG/DL PROTEIN, TOTAL (test code = 2229) 6.6 G/DL ALBUMIN (test code = 2201) 4.3 G/DL CALC GLOBULIN (test code = 2240) 2.3 G/DL CALC A/G RATIO (test code = 2234) 1.9 RATIO BILIRUBIN, TOTAL (test code = 2207) 0.3 MG/DL ALKALINE PHOSPHATASE (test code = 2204) 94 U/L AST (test code = 2218) 54 U/L ALT (test code = 2219) 32 U/L [place]inCBC W/AUTO [id number] 00:00:00* Test Item Value Reference Range Interpretation Comme nts WBC (test code = 1001) 5.8 K/UL RBC (test code = 1002) 4.44 M/UL HEMOGLOBIN (test code = 1003) 11.9 G/DL HEMATOCRIT (test code = 1004) 38.2 % MCV (test code = 1005) 86.0 fL MCH (test code = 1006) 26.8 PG MCHC (test code = 1007) 31.2 G/DL RDW (test code = 1038) 12.1 % NEUTROPHILS (test code = 1008) 69.3 % LYMPHOCYTES (test code = 1010) 21.9 % MONOCYTES (test code = 1011) 6.3 % EOSINOPHILS (test code = 1012) 1.7 % BASOPHILS (test code = 1013) 0.5 % IMMATURE GRANULOCYTES (test code = 1036) 0.3 % NUCLEATED RBCS (test code = 1065) 0.0 /100WBC'S PLATELET COUNT (test code = 1015) 184 K/UL ABSOLUTE NEUTROPHILS (test c ode = 1066) 3.98 K/UL ABSOLUTE LYMPHOCYTES (test c ode = 1067) 1.26 K/UL ABSOLUTE MONOCYTES (test cod e = 1068) 0.36 K/UL ABSOLUTE EOSINOPHILS (test c ode = 1040) 0.10 K/UL ABSOLUTE BASOPHILS (test cod e = 1069) 0.03 K/UL ABS IMMATURE GRANULOCYTES (t est code = 1020) 0.02 K/UL ABS NUCLEATED RBCS (test cod e = 90265) 0.00 K/UL [place] RankinTSH, THIRD [id number] 00:00:00* Test Item Value Reference Range Interpretation Comme nts TSH, THIRD GENERATION (test code = 2821) <0.010 UIU/ML [place]inHEMOGLOBIN [id number] 00:00:00* Test Item Value Reference Range Interpretation Comme nts HEMOGLOBIN A1c (test code = 67442) 7.1 % [place] [id number] 00:00:00* Test Item Value Reference Range Interpretation Comme nts MAGNESIUM (test code = 2226) 2.2 MG/DL [place] RankinPSA, [id number] 01:43:21* Test Item Value Reference Range Interpretation Comme nts PSA, TOTAL (test code = 2606) <0.02 NG/ML See_Comment NOTE: Methodolog y is Josefina Malcom Electrochemiluminescence Immunoassay traceable to WHO reference standard 96/760. UNLESS OTHERWISE INDICATED, ALL TESTING PERFORMED [facility] PATH[facility] [employer] [address] [place] [address] HEALTH PLAN MANAGER: AMOS ASENCIO M.D. CLIA NUMBER [id number] [place]. [id number] [Automated message] The system which generated this result transmitted reference range: <=4.00. The reference range was not used to interpret this result as normal/abnormal. PSA, TOTAL [ADDED]2021-11-25 00:00:00* Test Item Value Reference Range Interpretation Comme nts PSA, TOTAL (test code = 2606) <0.02 NG/ML [place] RankinPSA, TOTAL [ADDED]2021-11-25 00:00:00* Test Item Value Reference Range Interpretation Comme nts PSA, TOTAL (test code = 2606) <0.02 NG/ML [place] [id number] 06:05:25* Test Item Value Reference Range Interpretation Comme nts TESTOSTERONE (test code = 2830) 52 NG/DL 300-720 L TESTOSTERONE [ADDED]2021-11-23 00:00:00* Test Item Value Reference Range Interpretation Comme nts TESTOSTERONE (test code = 2830) 52 NG/DL [place] RankinTESTOSTERONE [ADDED]2021-11-23 00:00:00* Test Item Value Reference Range Interpretation Comme nts TESTOSTERONE (test code = 2830) 52 NG/DL [place] RankinVITAMIN D, 25 [id number] 06:41:34* Test Item Value Reference Range Interpretation [...] 30-100 UNLESS OTHERWISE INDICATED, ALL TESTING PERFORMED [facility] [address] [place] [address] HEALTH PLAN MANAGER: AMOS ASENCIO M.D. CLIA NUMBER [id number] [place]. [id number] 06:13:45* Test Item Value Reference Range Interpretation Comme nts TESTOSTERONE (test code = 2830) 68 NG/DL 300-720 L VITAMIN [id number] 06:13:02* Test Item Value Reference Range Interpretation Comme nts VITAMIN B-12 (test code = 2840) 1515 PG/ML 200-950 H TSH, THIRD [id number] 06:13:02* Test Item Value Reference Range Interpretation Comme nts TSH, THIRD GENERATION (test code = 2821) <0.010 UIU/ML 0.400-4.100 L URIC [id number] 04:07:46* Test Item Value Reference Range Interpretation Comme nts URIC ACID (test code = 2233) 7.4 MG/DL 3.7-8.0 COMPREHENSIVE METABOLIC [id number] 04:07:46* Test Item Value Reference Range Interpretation Comme nts GLUCOSE (test code = 2217) 129 MG/DL 70-99 H BUN (test code = 2208) 21 MG/DL 8-23 CREATININE (test code = 2214) 0.84 MG/DL 0.80-1.40 eGFR (2020 CKD-EPI) (test code = 09838) 99 ML/MIN/1.73 >60 CALC BUN/CREAT (test code = 2235) 25 RATIO 6-28 SODIUM (test code = 2231) 141 MEQ/L 133-146 POTASSIUM (test code = [...] CALC A/G RATIO (test code = 2233) 1.6 RATIO 1.0-2.6 BILIRUBIN, TOTAL (test code = 2206) 0.5 MG/DL See_Comment [Automated nd ssage] The system which generated this result transmitted reference range: <=1.2. The reference range was not used to interpret this result as normal/abnormal. ALKALINE PHOSPHATASE (test code = 4) 102 U/L 40-123 AST (test code = 2218) 22 U/L 9-50 ALT (test code = 2219) 23 U/L 5-50 CBC W/AUTO DIFF WITH [id number] 03:09:24* Test Item Value Reference Range Interpretation [...] = 1065) 0.0 /100 WBC'S See_Comment [Automated RPM [employer]] The system which generated this result [...] 0.00-0.10 ABS NUCLEATED RBCS (test code = 86073) 0.00 K/UL 0.00-0.11 VITAMIN [id number] 00:00:00* Test Item Value Reference Range Interpretation Comme eunice VITAMIN B-12 (test code = 2840) 1515 PG/ML [place] [id number] 00:00:00* Test Item Value Reference Range Interpretation Comme eunice TESTOSTERONE (test code = 2830) 68 NG/DL [place] AustinURIC [id number] 00:00:00* Test Item Value Reference Range Interpretation Comme [facility] URIC ACID (test code = 2233) 7.4 MG/DL [place]inCBC W/AUTO [id number] 00:00:00* Test Item Value Reference Range Interpretation Comme nts WBC (test code = 1001) 6.2 K/UL RBC (test code = 1002) 4.35 M/UL HEMOGLOBIN (test code = 1003) 11.9 G/DL HEMATOCRIT (test code = 1004) 36.4 % MCV (test code = 1005) 83.7 fL MCH (test code = 1006) 27.4 PG MCHC (test code = 1007) 32.7 G/DL RDW (test code = 1038) 11.9 % NEUTROPHILS (test code = 1008) 58.8 % LYMPHOCYTES (test code = 1010) 29.1 % MONOCYTES (test code = 1011) 9.0 % EOSINOPHILS (test code = 1012) 2.3 % BASOPHILS (test code = 1013) 0.3 % IMMATURE GRANULOCYTES (test code = 1036) 0.5 % NUCLEATED RBCS (test code = 1065) 0.0 /100WBC'S PLATELET COUNT (test code = 1015) 230 K/UL ABSOLUTE NEUTROPHILS (test c ode = 1066) 3.66 K/UL ABSOLUTE LYMPHOCYTES (test c ode = 1067) 1.81 K/UL ABSOLUTE MONOCYTES (test cod e = 1068) 0.56 K/UL ABSOLUTE EOSINOPHILS (test c ode = 1040) 0.14 K/UL ABSOLUTE BASOPHILS (test cod e = 1069) 0.02 K/UL ABS IMMATURE GRANULOCYTES (t est code = 1020) 0.03 K/UL ABS NUCLEATED RBCS (test cod e = 86675) 0.00 K/UL [place] RankinCOMPREHENSIVE METABOLIC [id number] 00:00:00* Test Item Value Reference Range Interpretation Comme nts GLUCOSE (test code = 2217) 129 MG/DL BUN (test code = 2208) 21 MG/DL CREATININE (test code = 2214) 0.84 MG/DL eGFR (2020 CKD-EPI) (test co de = 44162) 99 ML/MIN/1.73 CALC BUN/CREAT (test code = 2235) 25 RATIO SODIUM (test code = 2231) 141 MEQ/L POTASSIUM (test code = 2228) 4.7 MEQ/L CHLORIDE (test code = 2215) 104 MEQ/L CARBON DIOXIDE (test code = 2206) 27 MEQ/L CALCIUM (test code = 2209) 9.9 MG/DL PROTEIN, TOTAL (test code = 2229) 6.9 G/DL ALBUMIN (test code = 2201) 4.2 G/DL CALC GLOBULIN (test code = 2240) 2.7 G/DL CALC A/G RATIO (test code = 2234) 1.6 RATIO BILIRUBIN, TOTAL (test code = 2207) 0.5 MG/DL ALKALINE PHOSPHATASE (test code = 2204) 102 U/L AST (test code = 2218) 22 U/L ALT (test code = 2219) 23 U/L [id number] 00:00:00* Test Item Value Reference Range Interpretation Comme nts TSH, THIRD GENERATION (test code = 2821) <0.010 UIU/ML [place] RankinVITAMIN D, 25 [id number] 00:00:00* Test Item Value Reference Range Interpretation Comme nts VITAMIN D, 25 OH (test code = 4958) 41 NG/ML [place] RankinVITAMIN [id number] 00:00:00* Test Item Value Reference Range Interpretation Comme nts VITAMIN B-12 (test code = 2840) 1515 PG/ML [id number] 00:00:00* Test Item Value Reference Range Interpretation Comme nts TESTOSTERONE (test code = 2830) 68 NG/DL [place]inURIC [id number] 00:00:00* Test Item Value Reference Range Interpretation Comme nts URIC ACID (test code = 2233) 7.4 MG/DL [place]inCBC W/AUTO [id number] 00:00:00* Test Item Value Reference Range Interpretation Comme nts WBC (test code = 1001) 6.2 K/UL RBC (test code = 1002) 4.35 M/UL HEMOGLOBIN (test code = 1003) 11.9 G/DL HEMATOCRIT (test code = 1004) 36.4 % MCV (test code = 1005) 83.7 fL MCH (test code = 1006) 27.4 PG MCHC (test code = 1007) 32.7 G/DL RDW (test code = 1038) 11.9 % NEUTROPHILS (test code = 1008) 58.8 % LYMPHOCYTES (test code = 1010) 29.1 % MONOCYTES (test code = 1011) 9.0 % EOSINOPHILS (test code = 1012) 2.3 % BASOPHILS (test code = 1013) 0.3 % IMMATURE GRANULOCYTES (test code = 1036) 0.5 % NUCLEATED RBCS (test code = 1065) 0.0 /100WBC'S PLATELET COUNT (test code = 1015) 230 K/UL ABSOLUTE NEUTROPHILS (test c ode = 1066) 3.66 K/UL ABSOLUTE LYMPHOCYTES (test c ode = 1067) 1.81 K/UL ABSOLUTE MONOCYTES (test cod e = 1068) 0.56 K/UL ABSOLUTE EOSINOPHILS (test c ode = 1040) 0.14 K/UL ABSOLUTE BASOPHILS (test cod e = 1069) 0.02 K/UL ABS IMMATURE GRANULOCYTES (t est code = 1020) 0.03 K/UL ABS NUCLEATED RBCS (test cod e = 08518) 0.00 K/UL [place]inCOMPREHENSIVE METABOLIC [id number] 00:00:00* Test Item Value Reference Range Interpretation Comme nts GLUCOSE (test code = 2217) 129 MG/DL BUN (test code = 2208) 21 MG/DL CREATININE (test code = 2214) 0.84 MG/DL eGFR (2020 CKD-EPI) (test co de = 97168) 99 ML/MIN/1.73 CALC BUN/CREAT (test code = 2235) 25 RATIO SODIUM (test code = 2231) 141 MEQ/L POTASSIUM (test code = 2228) 4.7 MEQ/L CHLORIDE (test code = 2215) 104 MEQ/L CARBON DIOXIDE (test code = 2206) 27 MEQ/L CALCIUM (test code = 2209) 9.9 MG/DL PROTEIN, TOTAL (test code = 2229) 6.9 G/DL ALBUMIN (test code = 2201) 4.2 G/DL CALC GLOBULIN (test code = 2240) 2.7 G/DL CALC A/G RATIO (test code = 2234) 1.6 RATIO BILIRUBIN, TOTAL (test code = 2207) 0.5 MG/DL ALKALINE PHOSPHATASE (test code = 220) 102 U/L AST (test code = 2218) 22 U/L ALT (test code = 2219) 23 U/L [id number] 00:00:00* Test Item Value Reference Range Interpretation Comme [facility] TSH, THIRD GENERATION (test code = 2821) <0.010 UIU/ML [place]inVITAMIN D, 25 [id number] 00:00:00* Test Item Value Reference Range Interpretation Comme [facility] VITAMIN D, 25 OH (test code = 4958) 41 NG/ML [place]inPSA, [id number] 06:16:09* Test Item Value Reference Range Interpretation Comme [facility] PSA, TOTAL (test code = 2606) <0.02 NG/ML See_Comment NOTE: Methodolog y is Josefina Malcom Electrochemiluminescence Immunoassay traceable to WHO reference standard 96/760. UNLESS OTHERWISE INDICATED, ALL TESTING PERFORMED ATCLINTriton [facility], Inc PATHOLOGY [employer] [employer] [address] [place] [address] HEALTH PLAN MANAGER: AMOS ASENCIO M.D. CLIA NUMBER [id number] [place]. [id number] [Automated message] The system which generated this result transmitted reference range: <=4.00. The reference range was not used to interpret this result as normal/abnormal. COMPREHENSIVE METABOLIC [id number] 05:08:39* Test Item Value Reference Range Interpretation Comme nts GLUCOSE (test code = 2216) 114 MG/DL 70-99 H BUN (test code = 2207) 18 MG/DL 8-23 CREATININE (test code = 2213) 0.74 MG/DL 0.80-1.40 L eGFR (2020 CKD-EPI) (test code = ) 103 ML/MIN/1.73 >60 CALC BUN/CREAT (test code = 2234) 24 RATIO 6-28 SODIUM (test code = 2230) 143 MEQ/L 133-146 POTASSIUM (test code = 2227) 4.9 MEQ/L 3.5-5.4 CHLORIDE (test code = 2214) 103 MEQ/L 95-107 CARBON DIOXIDE (test code = 2205) 28 MEQ/L 19-31 CALCIUM (test code = 2208) 9.9 MG/DL 8.5-10.5 PROTEIN, TOTAL (test code = 2228) 6.9 G/DL 6.1-8.3 ALBUMIN (test code = 2200) 4.6 G/DL 3.5-5.2 CALC GLOBULIN (test code = 2240) 2.3 G/DL 1.9-3.7 CALC A/G RATIO (test code = 2233) 2.0 RATIO 1.0-2.6 BILIRUBIN, TOTAL (test code = 2206) 0.2 MG/DL See_Comment [Automated me ssage] The system which generated this result transmitted reference range: <=1.2. The reference range was not used to interpret this result as normal/abnormal. ALKALINE PHOSPHATASE (test code = 2203) 107 U/L 40-123 AST (test code = 8) 25 U/L 9-50 ALT (test code = 2219) 23 U/L 5-50 LIPID [id number] 05:08:39* Test Item Value Reference Range Interpretation Comme nts CHOLESTEROL (test code = 2210) 187 MG/DL <200 TRIGLYCERIDES (test code = 2232) 99 MG/DL <150 HDL CHOLESTEROL (test code = 2220) 64 MG/DL >39 CALC LDL CHOL (test code = 2236) 104 MG/DL <100 H NOTE: CALCULATED LDL IS BASED ON LEEROY-KHANNA METHOD WHICHINCLUDES ADJUSTABLE TRIGLYCERIDE:VLDL CHOLESTEROL RATIO.THIS FACTOR VARIES BY MEASURED TRIGLYCERIDE AND NON-HDLCHOLESTEROL CONCENTRATIONS WITH INCREASED CALCULATED LDL SEENIN HIGHER TRIGLYCERIDE OR LOWER NON-HDL SPECIMENS. FOR MOREINFORMATION, SEE CLIENT ANNOUNCEMENT AT [email or web address] [email or web address] RATIO LDL/HDL (test code = 2238) 1.63 RATIO <3.55 CBC W/AUTO DIFF WITH [id number] 02:52:40* Test Item Value Reference Range Interpretation [...] = 1065) 0.0 /100 WBC'S See_Comment [Automated RPM [employer]] The system which generated this result [...] 0.00-0.10 ABS NUCLEATED RBCS (test code = 85465) 0.00 K/UL 0.00-0.11 COMPREHENSIVE METABOLIC [id number] 00:00:00* Test Item Value Reference Range Interpretation Comme nts GLUCOSE (test code = 2217) 114 MG/DL BUN (test code = 2208) 18 MG/DL CREATININE (test code = 2214) 0.74 MG/DL eGFR (2020 CKD-EPI) (test code = 04735) 103 ML/MIN/1.73 CALC BUN/CREAT (test code = 2235) 24 RATIO SODIUM (test code = 2231) 143 MEQ/L POTASSIUM (test code = 2228) 4.9 MEQ/L CHLORIDE (test code = 2215) 103 MEQ/L CARBON DIOXIDE (test code = 2206) 28 MEQ/L CALCIUM (test code = 2209) 9.9 MG/DL PROTEIN, TOTAL (test code = 2229) 6.9 G/DL ALBUMIN (test code = 2201) 4.6 G/DL CALC GLOBULIN (test code = 2240) 2.3 G/DL CALC A/G RATIO (test code = 2234) 2.0 RATIO BILIRUBIN, TOTAL (test code = 2207) 0.2 MG/DL ALKALINE PHOSPHATASE (test code = 2204) 107 U/L AST (test code = 2218) 25 U/L ALT (test code = 2219) 23 U/L [place] RankinLIPID [id number] 00:00:00* Test Item Value Reference Range Interpretation Comme nts CHOLESTEROL (test code = 2210) 187 MG/DL TRIGLYCERIDES (test code = 2232) 99 MG/DL HDL CHOLESTEROL (test code = 2220) 64 MG/DL CALC LDL CHOL (test code = 2237) 104 MG/DL RISK RATIO LDL/HDL (test cod e = 2238) 1.63 RATIO [place] RankinCBC W/AUTO [id number] 00:00:00* Test Item Value Reference Range Interpretation Comme nts WBC (test code = 1001) 6.8 K/UL RBC (test code = 1002) 4.30 M/UL HEMOGLOBIN (test code = 1003) 11.6 G/DL HEMATOCRIT (test code = 1004) 35.5 % MCV (test code = 1005) 82.6 fL MCH (test code = 1006) 27.0 PG MCHC (test code = 1007) 32.7 G/DL RDW (test code = 1038) 12.8 % NEUTROPHILS (test code = 1008) 64.0 % LYMPHOCYTES (test code = 1010) 23.6 % MONOCYTES (test code = 1011) 9.6 % EOSINOPHILS (test code = 1012) 2.2 % BASOPHILS (test code = 1013) 0.3 % IMMATURE GRANULOCYTES (test code = 1036) 0.3 % NUCLEATED RBCS (test code = 1065) 0.0 /100WBC'S PLATELET COUNT (test code = 1015) 199 K/UL ABSOLUTE NEUTROPHILS (test c ode = 1066) 4.33 K/UL ABSOLUTE LYMPHOCYTES (test c ode = 1067) 1.60 K/UL ABSOLUTE MONOCYTES (test cod e = 1068) 0.65 K/UL ABSOLUTE EOSINOPHILS (test c ode = 1040) 0.15 K/UL ABSOLUTE BASOPHILS (test cod e = 1069) 0.02 K/UL ABS IMMATURE GRANULOCYTES (t est code = 1020) 0.02 K/UL ABS NUCLEATED RBCS (test cod e = 92876) 0.00 K/UL [place] RankinPSA, [id number] 00:00:00* Test Item Value Reference Range Interpretation Comme nts PSA, TOTAL (test code = 2606) <0.02 NG/ML [place] ChuchoCOMPREHENSIVE METABOLIC [id number] 00:00:00* Test Item Value Reference Range Interpretation Comme nts GLUCOSE (test code = 2217) 114 MG/DL BUN (test code = 2208) 18 MG/DL CREATININE (test code = 2214) 0.74 MG/DL eGFR (2020 CKD-EPI) (test code = 26237) 103 ML/MIN/1.73 CALC BUN/CREAT (test code = 2235) 24 RATIO SODIUM (test code = 2231) 143 MEQ/L POTASSIUM (test code = 2228) 4.9 MEQ/L CHLORIDE (test code = 2215) 103 MEQ/L CARBON DIOXIDE (test code = 2206) 28 MEQ/L CALCIUM (test code = 2209) 9.9 MG/DL PROTEIN, TOTAL (test code = 2229) 6.9 G/DL ALBUMIN (test code = 2201) 4.6 G/DL CALC GLOBULIN (test code = 2240) 2.3 G/DL CALC A/G RATIO (test code = 2234) 2.0 RATIO BILIRUBIN, TOTAL (test code = 2207) 0.2 MG/DL ALKALINE PHOSPHATASE (test code = 2204) 107 U/L AST (test code = 2218) 25 U/L ALT (test code = 2219) 23 U/L [place] RankinLIPID [id number] 00:00:00* Test Item Value Reference Range Interpretation Comme nts CHOLESTEROL (test code = 2210) 187 MG/DL TRIGLYCERIDES (test code = 2232) 99 MG/DL HDL CHOLESTEROL (test code = 2220) 64 MG/DL CALC LDL CHOL (test code = 2237) 104 MG/DL RISK RATIO LDL/HDL (test cod e = 2238) 1.63 RATIO [place] RankinCBC W/AUTO [id number] 00:00:00* Test Item Value Reference Range Interpretation Comme nts WBC (test code = 1001) 6.8 K/UL RBC (test code = 1002) 4.30 M/UL HEMOGLOBIN (test code = 1003) 11.6 G/DL HEMATOCRIT (test code = 1004) 35.5 % MCV (test code = 1005) 82.6 fL MCH (test code = 1006) 27.0 PG MCHC (test code = 1007) 32.7 G/DL RDW (test code = 1038) 12.8 % NEUTROPHILS (test code = 1008) 64.0 % LYMPHOCYTES (test code = 1010) 23.6 % MONOCYTES (test code = 1011) 9.6 % EOSINOPHILS (test code = 1012) 2.2 % BASOPHILS (test code = 1013) 0.3 % IMMATURE GRANULOCYTES (test code = 1036) 0.3 % NUCLEATED RBCS (test code = 1065) 0.0 /100WBC'S PLATELET COUNT (test code = 1015) 199 K/UL ABSOLUTE NEUTROPHILS (test c ode = 1066) 4.33 K/UL ABSOLUTE LYMPHOCYTES (test c ode = 1067) 1.60 K/UL ABSOLUTE MONOCYTES (test cod e = 1068) 0.65 K/UL ABSOLUTE EOSINOPHILS (test c ode = 1040) 0.15 K/UL ABSOLUTE BASOPHILS (test cod e = 1069) 0.02 K/UL ABS IMMATURE GRANULOCYTES (t est code = 1020) 0.02 K/UL ABS NUCLEATED RBCS (test cod e = 44871) 0.00 K/UL [place] RankinPSA, [id number] 00:00:00* Test Item Value Reference Range Interpretation Comme nts PSA, TOTAL (test code = 2606) <0.02 NG/ML [place] RankinTSH, THIRD [id number] 06:54:41* Test Item Value Reference Range Interpretation Comme nts TSH, THIRD GENERATION (test code = 2821) <0.010 UIU/ML 0.400-4.100 L UNLESS OTHERWISE INDICATED, ALL TESTING PERFORMED [facility] PATH[facility] [employer] [address] [place] [address] HEALTH PLAN MANAGER: AMOS ASENCIO M.D. CLIA NUMBER [id number] [place] [id number] 00:00:00* Test Item Value Reference Range Interpretation Comme nts TSH, THIRD GENERATION (test code = 2821) <0.010 UIU/ML [place] [id number] 00:00:00* Test Item Value Reference Range Interpretation Comme nts TSH, THIRD GENERATION (test code = 2821) <0.010 UIU/ML [place] RankinVITAMIN D, [id number] 08:20:12* Test Item Value Reference Range Interpretation [...] . NG/ML 30-100 CBC W/AUTO DIFF WITH [id number] 05:32:58* Test Item Value Reference Range Interpretation [...] DIFFERENTIAL WILL BE ELIMINATED REDUNDANT TOABSOLUTE COUNTS.SEE [email or web address] te LYMPHOCYTES (test code = 1010) [...] 0.00-0.10 ABS NUCLEATED RBCS (test code = 29740) 0.00 K/UL 0.00-0.11 COMPREHENSIVE METABOLIC [id number] 04:40:50* Test Item Value Reference Range Interpretation Comme nts GLUCOSE (test code = 2217) 116 MG/DL 70-99 H BUN (test code = 2207) 18 MG/DL 8-23 CREATININE (test code = 2214) 0.67 MG/DL 0.80-1.40 L EFFECTIVE 04/08/2021, [facility] HAS IMPLEMENTED THE NKF-ASN RECOMMENDED KD-EPI EGFR REFIT CALCULATION THAT DOES NOT INCLUDE A COEFFICIENT FORRACE. FOR MORE INFORMATION, SEE ANNOUNCEMENT [email or web address] eGFR (2020 CKD-EPI) (test code = 54411) 106 ML/MIN/1.73 >60 CALC BUN/CREAT (test code = 2234) 27 RATIO 6-28 SODIUM (test code = [...] 1.0-2.6 BILIRUBIN, TOTAL (test code = 2206) 0.4 MG/DL See_Comment [Automated me ssage] The system which generated this result transmitted reference range: <=1.2. The reference range was not used to interpret this result as normal/abnormal. ALKALINE PHOSPHATASE (test code = 4) 99 U/L 40-123 AST (test code = 2218) 25 U/L 9-50 ALT (test code = 2219) 33 U/L 5-50 VITAMIN [id number] 04:22:54* Test Item Value Reference Range Interpretation Comme [facility] VITAMIN B-12 (test code = 2840) 1266 PG/ML 200-950 H TSH, THIRD [id number] 04:22:54* Test Item Value Reference Range Interpretation Comme [facility] TSH, THIRD GENERATION (test code = 2821) <0.010 UIU/ML 0.400-4.100 L UNLESS OTHERWISE INDICATED, ALL TESTING PERFORMED [facility] [employer] [address] [place] [id number] HEALTH PLAN MANAGER: AMOS ASENCIO M.D. CLIA NUMBER [id number] [place]. [id number] VITAMIN [id number] 00:00:00* Test Item Value Reference Range Interpretation Comme [facility] VITAMIN B-12 (test code = 2840) 1266 PG/ML [place]inVITAMIN D, 25 [id number] 00:00:00* Test Item Value Reference Range Interpretation Comme [facility] VITAMIN D, 25 OH (test code = 4958) 39 NG/ML [place] RankinCBC W/AUTO [id number] 00:00:00* Test Item Value Reference Range Interpretation Comme [facility] WBC (test code = 1001) 7.0 K/UL RBC (test code = 1002) 4.34 M/UL HEMOGLOBIN (test code = 1003) 11.9 G/DL HEMATOCRIT (test code = 1004) 35.7 % MCV (test code = 1005) 82.3 fL MCH (test code = 1006) 27.4 PG MCHC (test code = 1007) 33.3 G/DL RDW (test code = 1038) 12.4 % NEUTROPHILS (test code = 1008) 65.5 % LYMPHOCYTES (test code = 1010) 24.0 % MONOCYTES (test code = 1011) 7.9 % EOSINOPHILS (test code = 1012) 2.0 % BASOPHILS (test code = 1013) 0.3 % IMMATURE GRANYLOCYTES (test code = 1036) 0.3 % NUCLEATED RBCS (test code = 1065) 0.0 /100WBC'S PLATELET COUNT (test code = 1015) 232 K/UL ABSOLUTE NEUTROPHILS (test c ode = 1066) 4.55 K/UL ABSOLUTE LYMPHOCYTES (test c ode = 1067) 1.67 K/UL ABSOLUTE MONOCYTES (test cod e = 1068) 0.55 K/UL ABSOLUTE EOSINOPHILS (test c ode = 1040) 0.14 K/UL ABSOLUTE BASOPHILS (test cod e = 1069) 0.02 K/UL ABS IMMATURE GRANULOCYTES (t est code = 1020) 0.02 K/UL ABS NUCLEATED RBCS (test cod e = 72598) 0.00 K/UL [place] RankinCOMPREHENSIVE METABOLIC [id number] 00:00:00* Test Item Value Reference Range Interpretation Comme nts GLUCOSE (test code = 2217) 116 MG/DL BUN (test code = 2208) 18 MG/DL CREATININE (test code = 2214) 0.67 MG/DL eGFR (2020 CKD-EPI) (test code = 63640) 106 ML/MIN/1.73 CALC BUN/CREAT (test code = 2235) 27 RATIO SODIUM (test code = 2231) 141 MEQ/L POTASSIUM (test code = 2228) 4.9 MEQ/L CHLORIDE (test code = 2215) 104 MEQ/L CARBON DIOXIDE (test code = 2206) 26 MEQ/L CALCIUM (test code = 2209) 9.8 MG/DL PROTEIN, TOTAL (test code = 2229) 6.9 G/DL ALBUMIN (test code = 2201) 4.2 G/DL CALC GLOBULIN (test code = 2240) 2.7 G/DL CALC A/G RATIO (test code = 2234) 1.6 RATIO BILIRUBIN, TOTAL (test code = 2207) 0.4 MG/DL ALKALINE PHOSPHATASE (test code = 2204) 99 U/L AST (test code = 2218) 25 U/L ALT (test code = 2219) 33 U/L [place] [id number] 00:00:00* Test Item Value Reference Range Interpretation Comme nts TSH, THIRD GENERATION (test code = 2821) <0.010 UIU/ML [place] [facility]inVITAMIN [id number] 00:00:00* Test Item Value Reference Range Interpretation Comme nts VITAMIN B-12 (test code = 2840) 1266 PG/ML [place]inVITAMIN D, 25 [id number] 00:00:00* Test Item Value Reference Range Interpretation Comme nts VITAMIN D, 25 OH (test code = 4958) 39 NG/ML [place]inCBC W/AUTO [id number] 00:00:00* Test Item Value Reference Range Interpretation Comme nts WBC (test code = 1001) 7.0 K/UL RBC (test code = 1002) 4.34 M/UL HEMOGLOBIN (test code = 1003) 11.9 G/DL HEMATOCRIT (test code = 1004) 35.7 % MCV (test code = 1005) 82.3 fL MCH (test code = 1006) 27.4 PG MCHC (test code = 1007) 33.3 G/DL RDW (test code = 1038) 12.4 % NEUTROPHILS (test code = 1008) 65.5 % LYMPHOCYTES (test code = 1010) 24.0 % MONOCYTES (test code = 1011) 7.9 % EOSINOPHILS (test code = 1012) 2.0 % BASOPHILS (test code = 1013) 0.3 % IMMATURE GRANYLOCYTES (test code = 1036) 0.3 % NUCLEATED RBCS (test code = 1065) 0.0 /100WBC'S PLATELET COUNT (test code = 1015) 232 K/UL ABSOLUTE NEUTROPHILS (test c ode = 1066) 4.55 K/UL ABSOLUTE LYMPHOCYTES (test c ode = 1067) 1.67 K/UL ABSOLUTE MONOCYTES (test cod e = 1068) 0.55 K/UL ABSOLUTE EOSINOPHILS (test c ode = 1040) 0.14 K/UL ABSOLUTE BASOPHILS (test cod e = 1069) 0.02 K/UL ABS IMMATURE GRANULOCYTES (t est code = 1020) 0.02 K/UL ABS NUCLEATED RBCS (test cod e = 30882) 0.00 K/UL [place] RankinCOMPREHENSIVE METABOLIC [id number] 00:00:00* Test Item Value Reference Range Interpretation Comme nts GLUCOSE (test code = 2217) 116 MG/DL BUN (test code = 2208) 18 MG/DL CREATININE (test code = 2214) 0.67 MG/DL eGFR (2020 CKD-EPI) (test code = 96479) 106 ML/MIN/1.73 CALC BUN/CREAT (test code = 2235) 27 RATIO SODIUM (test code = 2231) 141 MEQ/L POTASSIUM (test code = 2228) 4.9 MEQ/L CHLORIDE (test code = 2215) 104 MEQ/L CARBON DIOXIDE (test code = 2206) 26 MEQ/L CALCIUM (test code = 2209) 9.8 MG/DL PROTEIN, TOTAL (test code = 2229) 6.9 G/DL ALBUMIN (test code = 2201) 4.2 G/DL CALC GLOBULIN (test code = 2240) 2.7 G/DL CALC A/G RATIO (test code = 2234) 1.6 RATIO BILIRUBIN, TOTAL (test code = 2207) 0.4 MG/DL ALKALINE PHOSPHATASE (test code = 2204) 99 U/L AST (test code = 2218) 25 U/L ALT (test code = 2219) 33 U/L [place] [id number] 00:00:00* Test Item Value Reference Range Interpretation Comme nts TSH, THIRD GENERATION (test code = 2821) <0.010 UIU/ML [place]inHEMOGLOBIN [id number] 00:00:00* Test Item Value Reference Range Interpretation Comme nts HEMOGLOBIN A1c (test code = 08218) 6.9 % [place] RankinCOMPREHENSIVE METABOLIC [id number] 00:00:00* Test Item Value Reference Range Interpretation Comme nts GLUCOSE (test code = 2217) 191 MG/DL BUN (test code = 2208) 24 MG/DL CREATININE (test code = 2214) 0.87 MG/DL eGFR AMER. (test cod e = 85542) 108 ML/MIN/1.73 eGFR NON- AMER. (test code = 81011) 93 ML/MIN/1.73 CALC BUN/CREAT (test code = 2235) 28 RATIO SODIUM (test code = 2231) 141 MEQ/L POTASSIUM (test code = 2228) 4.6 MEQ/L CHLORIDE (test code = 2215) 104 MEQ/L CARBON DIOXIDE (test code = 2206) 25 MEQ/L CALCIUM (test code = 2209) 9.8 MG/DL PROTEIN, TOTAL (test code = 2229) 7.2 G/DL ALBUMIN (test code = 2201) 4.5 G/DL CALC GLOBULIN (test code = 2240) 2.7 G/DL CALC A/G RATIO (test code = 2234) 1.7 RATIO BILIRUBIN, TOTAL (test code = 2207) 0.2 MG/DL ALKALINE PHOSPHATASE (test code = 2204) 122 U/L AST (test code = 2218) 22 U/L ALT (test code = 2219) 21 U/L [place] RankinLIPID [id number] 00:00:00* Test Item Value Reference Range Interpretation Comme nts CHOLESTEROL (test code = 2210) 211 MG/DL TRIGLYCERIDES (test code = 2232) 132 MG/DL HDL CHOLESTEROL (test code = 2220) 67 MG/DL CALC LDL CHOL (test code = 7) 119 MG/DL RISK RATIO LDL/HDL (test cod e = 223) 1.78 RATIO [place] [id number] 00:00:00* Test Item Value Reference Range Interpretation Comme nts TSH, THIRD GENERATION (test code = 2821) <0.010 UIU/ML [place]inHEMOGLOBIN [id number] 00:00:00* Test Item Value Reference Range Interpretation Comme nts HEMOGLOBIN A1c (test code = 79715) 6.9 % [place] RankinCOMPREHENSIVE METABOLIC [id number] 00:00:00* Test Item Value Reference Range Interpretation Comme nts GLUCOSE (test code = 7) 191 MG/DL BUN (test code = 2207) 24 MG/DL CREATININE (test code = 2214) 0.87 MG/DL eGFR AMER. (test cod e = 50179) 108 ML/MIN/1.73 eGFR NON- AMER. (test code = 76223) 93 ML/MIN/1.73 CALC BUN/CREAT (test code = 2235) 28 RATIO SODIUM (test code = 2231) 141 MEQ/L POTASSIUM (test code = 2228) 4.6 MEQ/L CHLORIDE (test code = 2215) 104 MEQ/L CARBON DIOXIDE (test code = 2206) 25 MEQ/L CALCIUM (test code = 2209) 9.8 MG/DL PROTEIN, TOTAL (test code = 2229) 7.2 G/DL ALBUMIN (test code = 2201) 4.5 G/DL CALC GLOBULIN (test code = 2240) 2.7 G/DL CALC A/G RATIO (test code = 2234) 1.7 RATIO BILIRUBIN, TOTAL (test code = 2207) 0.2 MG/DL ALKALINE PHOSPHATASE (test code = 2204) 122 U/L AST (test code = 2218) 22 U/L ALT (test code = 2219) 21 U/L [place] RankinLIPID [id number] 00:00:00* Test Item Value Reference Range Interpretation Comme nts CHOLESTEROL (test code = 2210) 211 MG/DL TRIGLYCERIDES (test code = 2232) 132 MG/DL HDL CHOLESTEROL (test code = 2220) 67 MG/DL CALC LDL CHOL (test code = 2237) 119 MG/DL RISK RATIO LDL/HDL (test cod e = 2238) 1.78 RATIO [place] [id number] 00:00:00* Test Item Value Reference Range Interpretation Comme nts TSH, THIRD GENERATION (test code = 2821) <0.010 UIU/ML [place]inURIC [id number] 00:00:00* Test Item Value Reference Range Interpretation Comme nts URIC ACID (test code = 2233) 6.9 MG/DL [place] RankinURIC [id number] 00:00:00* Test Item Value Reference Range Interpretation Comme nts URIC ACID (test code = 2233) 6.9 MG/DL [place] RankinHEMOGLOBIN [id number] 00:00:00* Test Item Value Reference Range Interpretation Comme nts HEMOGLOBIN A1c (test code = 07553) 6.1 % [place] RankinLIPID [id number] 00:00:00* Test Item Value Reference Range Interpretation Comme nts CHOLESTEROL (test code = 2210) 246 MG/DL TRIGLYCERIDES (test code = 2232) 126 MG/DL HDL CHOLESTEROL (test code = 2220) 80 MG/DL CALC LDL CHOL (test code = 2237) 141 MG/DL RISK RATIO LDL/HDL (test cod e = 2238) 1.76 RATIO [place] RankinCBC W/AUTO [id number] 00:00:00* Test Item Value Reference Range Interpretation Comme nts WBC (test code = 1001) 7.3 K/UL RBC (test code = 1002) 4.15 M/UL HEMOGLOBIN (test code = 1003) 11.2 G/DL HEMATOCRIT (test code = 1004) 34.9 % MCV (test code = 1005) 84.1 fL MCH (test code = 1006) 27.0 PG MCHC (test code = 1007) 32.1 G/DL RDW (test code = 1038) 12.9 % NEUTROPHILS (test code = 1008) 62.7 % LYMPHOCYTES (test code = 1010) 24.8 % MONOCYTES (test code = 1011) 9.6 % EOSINOPHILS (test code = 1012) 2.5 % BASOPHILS (test code = 1013) 0.4 % PLATELET COUNT (test code = 1015) 211 K/UL [place] RankinCOMPREHENSIVE METABOLIC [id number] 00:00:00* Test Item Value Reference Range Interpretation Comme nts GLUCOSE (test code = 2217) 132 MG/DL BUN (test code = 2208) 22 MG/DL CREATININE (test code = 2214) 0.71 MG/DL eGFR AMER. (test cod e = 05457) 118 ML/MIN/1.73 eGFR NON- AMER. (test code = 02869) 102 ML/MIN/1.73 CALC BUN/CREAT (test code = 2235) 31 RATIO SODIUM (test code = 2231) 142 MEQ/L POTASSIUM (test code = 2228) 4.7 MEQ/L CHLORIDE (test code = 2215) 103 MEQ/L CARBON DIOXIDE (test code = 2206) 29 MEQ/L CALCIUM (test code = 2209) 9.7 MG/DL PROTEIN, TOTAL (test code = 2229) 7.2 G/DL ALBUMIN (test code = 2201) 4.4 G/DL CALC GLOBULIN (test code = 2240) 2.8 G/DL CALC A/G RATIO (test code = 2234) 1.6 RATIO BILIRUBIN, TOTAL (test code = 2207) 0.2 MG/DL ALKALINE PHOSPHATASE (test code = 2204) 131 U/L AST (test code = 2218) 27 U/L ALT (test code = 2219) 23 U/L [id number] 00:00:00* Test Item Value Reference Range Interpretation Comme nts TSH, THIRD GENERATION (test code = 2821) 0.013 UIU/ML [place]inIRON, [id number] 00:00:00* Test Item Value Reference Range Interpretation Comme eunice IRON, SERUM (test code = 2222) 74 UG/DL [place] RankinHEMOGLOBIN [id number] 00:00:00* Test Item Value Reference Range Interpretation Comme nts HEMOGLOBIN A1c (test code = 92399) 6.1 % [place] RankinLIPID [id number] 00:00:00* Test Item Value Reference Range Interpretation Comme nts CHOLESTEROL (test code = 2210) 246 MG/DL TRIGLYCERIDES (test code = 2232) 126 MG/DL HDL CHOLESTEROL (test code = 2220) 80 MG/DL CALC LDL CHOL (test code = 2237) 141 MG/DL RISK RATIO LDL/HDL (test cod e = 2238) 1.76 RATIO [place]inCBC W/AUTO [id number] 00:00:00* Test Item Value Reference Range Interpretation Comme nts WBC (test code = 1001) 7.3 K/UL RBC (test code = 1002) 4.15 M/UL HEMOGLOBIN (test code = 1003) 11.2 G/DL HEMATOCRIT (test code = 1004) 34.9 % MCV (test code = 1005) 84.1 fL MCH (test code = 1006) 27.0 PG MCHC (test code = 1007) 32.1 G/DL RDW (test code = 1038) 12.9 % NEUTROPHILS (test code = 1008) 62.7 % LYMPHOCYTES (test code = 1010) 24.8 % MONOCYTES (test code = 1011) 9.6 % EOSINOPHILS (test code = 1012) 2.5 % BASOPHILS (test code = 1013) 0.4 % PLATELET COUNT (test code = 1015) 211 K/UL [place] RankinCOMPREHENSIVE METABOLIC [id number] 00:00:00* Test Item Value Reference Range Interpretation Comme nts GLUCOSE (test code = 2217) 132 MG/DL BUN (test code = 2208) 22 MG/DL CREATININE (test code = 2214) 0.71 MG/DL eGFR AMER. (test cod e = 16872) 118 ML/MIN/1.73 eGFR NON- AMER. (test code = 39545) 102 ML/MIN/1.73 CALC BUN/CREAT (test code = 2235) 31 RATIO SODIUM (test code = 2231) 142 MEQ/L POTASSIUM (test code = 2228) 4.7 MEQ/L CHLORIDE (test code = 2215) 103 MEQ/L CARBON DIOXIDE (test code = 2206) 29 MEQ/L CALCIUM (test code = 2209) 9.7 MG/DL PROTEIN, TOTAL (test code = 2229) 7.2 G/DL ALBUMIN (test code = 2201) 4.4 G/DL CALC GLOBULIN (test code = 2240) 2.8 G/DL CALC A/G RATIO (test code = 2234) 1.6 RATIO BILIRUBIN, TOTAL (test code = 2207) 0.2 MG/DL ALKALINE PHOSPHATASE (test code = 2204) 131 U/L AST (test code = 2218) 27 U/L ALT (test code = 2219) 23 U/L [id number] 00:00:00* Test Item Value Reference Range Interpretation Comme nts TSH, THIRD GENERATION (test code = 2821) 0.013 UIU/ML [place]inIRON, [id number] 00:00:00* Test Item Value Reference Range Interpretation Comme nts IRON, SERUM (test code = 2222) 74 UG/DL [place] RankinCOMPREHENSIVE METABOLIC [id number] 00:00:00* Test Item Value Reference Range Interpretation Comme nts GLUCOSE (test code = 2217) 116 MG/DL BUN (test code = 2208) 20 MG/DL CREATININE (test code = 2214) 0.70 MG/DL eGFR AMER. (test cod e = 82695) 109 ML/MIN/1.73 eGFR NON- AMER. (test code = 49258) 94 ML/MIN/1.73 CALC BUN/CREAT (test code = 2235) 29 RATIO SODIUM (test code = 2231) 143 MEQ/L POTASSIUM (test code = 2228) 4.7 MEQ/L CHLORIDE (test code = 2215) 103 MEQ/L CARBON DIOXIDE (test code = 2206) 29 MEQ/L CALCIUM (test code = 2209) 9.7 MG/DL PROTEIN, TOTAL (test code = 2229) 6.7 G/DL ALBUMIN (test code = 2201) 4.3 G/DL CALC GLOBULIN (test code = 2240) 2.4 G/DL CALC A/G RATIO (test code = 2234) 1.8 RATIO BILIRUBIN, TOTAL (test code = 2207) <0.2 MG/DL ALKALINE PHOSPHATASE (test code = 2204) 157 U/L AST (test code = 2218) 30 U/L ALT (test code = 2219) 25 U/L [place] [id number] 00:00:00* Test Item Value Reference Range Interpretation Comme nts NT-proBNP (test code = 12198) 294 PG/ML [place] RankinCBC W/AUTO [id number] 00:00:00* Test Item Value Reference Range Interpretation Comme nts WBC (test code = 1001) 5.8 K/UL RBC (test code = 1002) 3.76 M/UL HEMOGLOBIN (test code = 1003) 10.0 G/DL HEMATOCRIT (test code = 1004) 31.2 % MCV (test code = 1005) 83.0 fL MCH (test code = 1006) 26.6 PG MCHC (test code = 1007) 32.1 G/DL RDW (test code = 1038) 13.1 % NEUTROPHILS (test code = 1008) 57.0 % LYMPHOCYTES (test code = 1010) 29.2 % MONOCYTES (test code = 1011) 10.4 % EOSINOPHILS (test code = 1012) 3.1 % BASOPHILS (test code = 1013) 0.3 % PLATELET COUNT (test code = 1015) 183 K/UL COMMENTS (test code = 1016) (NOTE) [place] RankinIRON, [id number] 00:00:00* Test Item Value Reference Range Interpretation Comme nts IRON, SERUM (test code = 2222) 57 UG/DL [place] RankinCOMPREHENSIVE METABOLIC [id number] 00:00:00* Test Item Value Reference Range Interpretation Comme nts GLUCOSE (test code = 2217) 116 MG/DL BUN (test code = 2208) 20 MG/DL CREATININE (test code = 2214) 0.70 MG/DL eGFR AMER. (test cod e = 77267) 109 ML/MIN/1.73 eGFR NON- AMER. (test code = 05705) 94 ML/MIN/1.73 CALC BUN/CREAT (test code = 2235) 29 RATIO SODIUM (test code = 2231) 143 MEQ/L POTASSIUM (test code = 2228) 4.7 MEQ/L CHLORIDE (test code = 2215) 103 MEQ/L CARBON DIOXIDE (test code = 2206) 29 MEQ/L CALCIUM (test code = 2209) 9.7 MG/DL PROTEIN, TOTAL (test code = 2229) 6.7 G/DL ALBUMIN (test code = 2201) 4.3 G/DL CALC GLOBULIN (test code = 2240) 2.4 G/DL CALC A/G RATIO (test code = 2234) 1.8 RATIO BILIRUBIN, TOTAL (test code = 2207) <0.2 MG/DL ALKALINE PHOSPHATASE (test code = 2204) 157 U/L AST (test code = 2218) 30 U/L ALT (test code = 2219) 25 U/L [place] [id number] 00:00:00* Test Item Value Reference Range Interpretation Comme nts NT-proBNP (test code = 93834) 294 PG/ML [place] RankinCBC W/AUTO [id number] 00:00:00* Test Item Value Reference Range Interpretation Comme nts WBC (test code = 1001) 5.8 K/UL RBC (test code = 1002) 3.76 M/UL HEMOGLOBIN (test code = 1003) 10.0 G/DL HEMATOCRIT (test code = 1004) 31.2 % MCV (test code = 1005) 83.0 fL MCH (test code = 1006) 26.6 PG MCHC (test code = 1007) 32.1 G/DL RDW (test code = 1038) 13.1 % NEUTROPHILS (test code = 1008) 57.0 % LYMPHOCYTES (test code = 1010) 29.2 % MONOCYTES (test code = 1011) 10.4 % EOSINOPHILS (test code = 1012) 3.1 % BASOPHILS (test code = 1013) 0.3 % PLATELET COUNT (test code = 1015) 183 K/UL COMMENTS (test code = 1016) (NOTE) [place] RankinIRON, [id number] 00:00:00* Test Item Value Reference Range Interpretation Comme nts IRON, SERUM (test code = 2222) 57 UG/DL [place] ChuchoHEMOGLOBIN [id number] 00:00:00* Test Item Value Reference Range Interpretation Comme nts HEMOGLOBIN A1c (test code = 54590) 6.1 % [place] RankinLIPID [id number] 00:00:00* Test Item Value Reference Range Interpretation Comme nts CHOLESTEROL (test code = 2210) 123 MG/DL TRIGLYCERIDES (test code = 2232) 87 MG/DL HDL CHOLESTEROL (test code = 2220) 66 MG/DL CALC LDL CHOL (test code = 2237) 40 MG/DL RISK RATIO LDL/HDL (test cod e = 2238) 0.61 RATIO [place] RankinCOMPREHENSIVE METABOLIC [id number] 00:00:00* Test Item Value Reference Range Interpretation Comme nts GLUCOSE (test code = 2217) 131 MG/DL BUN (test code = 2208) 28 MG/DL CREATININE (test code = 2214) 0.83 MG/DL eGFR AMER. (test cod e = 60800) 111 ML/MIN/1.73 eGFR NON- AMER. (test code = 30745) 96 ML/MIN/1.73 CALC BUN/CREAT (test code = 2235) 34 RATIO SODIUM (test code = 2231) 140 MEQ/L POTASSIUM (test code = 2228) 4.7 MEQ/L CHLORIDE (test code = 2215) 102 MEQ/L CARBON DIOXIDE (test code = 2206) 27 MEQ/L CALCIUM (test code = 2209) 10.3 MG/DL PROTEIN, TOTAL (test code = 2229) 6.4 G/DL ALBUMIN (test code = 2201) 4.0 G/DL CALC GLOBULIN (test code = 2240) 2.4 G/DL CALC A/G RATIO (test code = 2234) 1.7 RATIO BILIRUBIN, TOTAL (test code = 2207) 0.2 MG/DL ALKALINE PHOSPHATASE (test code = 2204) 121 U/L AST (test code = 2218) 42 U/L ALT (test code = 2219) 33 U/L [place] RankinCBC W/AUTO [id number] 00:00:00* Test Item Value Reference Range Interpretation Comme nts WBC (test code = 1001) 6.2 K/UL RBC (test code = 1002) 3.32 M/UL HEMOGLOBIN (test code = 1003) 8.7 G/DL HEMATOCRIT (test code = 1004) 26.7 % MCV (test code = 1005) 80.4 fL MCH (test code = 1006) 26.2 PG MCHC (test code = 1007) 32.6 G/DL RDW (test code = 1038) 12.0 % NEUTROPHILS (test code = 1008) 64.1 % LYMPHOCYTES (test code = 1010) 21.1 % MONOCYTES (test code = 1011) 11.3 % EOSINOPHILS (test code = 1012) 3.2 % BASOPHILS (test code = 1013) 0.3 % PLATELET COUNT (test code = 1015) 199 K/UL [place] RankinHEMOGLOBIN [id number] 00:00:00* Test Item Value Reference Range Interpretation Comme nts HEMOGLOBIN A1c (test code = 13215) 6.1 % [place] RankinLIPID [id number] 00:00:00* Test Item Value Reference Range Interpretation Comme nts CHOLESTEROL (test code = 2210) 123 MG/DL TRIGLYCERIDES (test code = 2232) 87 MG/DL HDL CHOLESTEROL (test code = 2220) 66 MG/DL CALC LDL CHOL (test code = 2237) 40 MG/DL RISK RATIO LDL/HDL (test cod e = 2238) 0.61 RATIO [place] RankinCOMPREHENSIVE METABOLIC [id number] 00:00:00* Test Item Value Reference Range Interpretation Comme nts GLUCOSE (test code = 2217) 131 MG/DL BUN (test code = 2208) 28 MG/DL CREATININE (test code = 2214) 0.83 MG/DL eGFR AMER. (test cod e = 89370) 111 ML/MIN/1.73 eGFR NON- AMER. (test code = 55023) 96 ML/MIN/1.73 CALC BUN/CREAT (test code = 2235) 34 RATIO SODIUM (test code = 2231) 140 MEQ/L POTASSIUM (test code = 2228) 4.7 MEQ/L CHLORIDE (test code = 2215) 102 MEQ/L CARBON DIOXIDE (test code = 2206) 27 MEQ/L CALCIUM (test code = 2209) 10.3 MG/DL PROTEIN, TOTAL (test code = 2229) 6.4 G/DL ALBUMIN (test code = 2201) 4.0 G/DL CALC GLOBULIN (test code = 2240) 2.4 G/DL CALC A/G RATIO (test code = 2234) 1.7 RATIO BILIRUBIN, TOTAL (test code = 2207) 0.2 MG/DL ALKALINE PHOSPHATASE (test code = 2204) 121 U/L AST (test code = 2218) 42 U/L ALT (test code = 2219) 33 U/L [place] RankinCBC W/AUTO [id number] 00:00:00* Test Item Value Reference Range Interpretation Comme nts WBC (test code = 1001) 6.2 K/UL RBC (test code = 1002) 3.32 M/UL HEMOGLOBIN (test code = 1003) 8.7 G/DL HEMATOCRIT (test code = 1004) 26.7 % MCV (test code = 1005) 80.4 fL MCH (test code = 1006) 26.2 PG MCHC (test code = 1007) 32.6 G/DL RDW (test code = 1038) 12.0 % NEUTROPHILS (test code = 1008) 64.1 % LYMPHOCYTES (test code = 1010) 21.1 % MONOCYTES (test code = 1011) 11.3 % EOSINOPHILS (test code = 1012) 3.2 % BASOPHILS (test code = 1013) 0.3 % PLATELET COUNT (test code = 1015) 199 K/UL [place] RankinHEMOGLOBIN [id number] 00:00:00* Test Item Value Reference Range Interpretation Comme [facility] HEMOGLOBIN A1c (test code = 90600) 6.3 % [place] RankinLIPID [id number] 00:00:00* Test Item Value Reference Range Interpretation Comme nts CHOLESTEROL (test code = 2210) 171 MG/DL TRIGLYCERIDES (test code = 2232) 121 MG/DL HDL CHOLESTEROL (test code = 2220) 59 MG/DL CALC LDL CHOL (test code = 2237) 90 MG/DL RISK RATIO LDL/HDL (test cod e = 2238) 1.53 RATIO [place] RankinCOMPREHENSIVE METABOLIC [id number] 00:00:00* Test Item Value Reference Range Interpretation Comme nts GLUCOSE (test code = 2217) 109 MG/DL BUN (test code = 2208) 23 MG/DL CREATININE (test code = 2214) 0.62 MG/DL eGFR AMER. (test cod e = 81886) 126 ML/MIN/1.73 eGFR NON- AMER. (test code = 83718) 109 ML/MIN/1.73 CALC BUN/CREAT (test code = 2235) 37 RATIO SODIUM (test code = 2231) 142 MEQ/L POTASSIUM (test code = 2228) 4.7 MEQ/L CHLORIDE (test code = 2215) 103 MEQ/L CARBON DIOXIDE (test code = 2206) 29 MEQ/L CALCIUM (test code = 2209) 9.9 MG/DL PROTEIN, TOTAL (test code = 222) 6.4 G/DL ALBUMIN (test code = 2201) 4.1 G/DL CALC GLOBULIN (test code = 2240) 2.3 G/DL CALC A/G RATIO (test code = 2234) 1.8 RATIO BILIRUBIN, TOTAL (test code = 220) 0.3 MG/DL ALKALINE PHOSPHATASE (test code = 2204) 90 U/L AST (test code = 221) 24 U/L ALT (test code = 221) 20 U/L [place] RankinVITAMIN D, 25 [id number] 00:00:00* Test Item Value Reference Range Interpretation Comme [facility] VITAMIN D, 25 OH (test code = 4958) 34 NG/ML [place] RankinURIC [id number] 00:00:00* Test Item Value Reference Range Interpretation Comme nts URIC ACID (test code = 2233) 7.4 MG/DL [place] RankinALBUMIN, URINE, RANDOM [ADDED][id number] 00:00:00* Test Item Value Reference Range Interpretation Comme [facility] ALBUMIN, URINE, RANDOM (test code = 95216) 0.5 MG/DL [place] RankinHEMOGLOBIN [id number] 00:00:00* Test Item Value Reference Range Interpretation Comme nts HEMOGLOBIN A1c (test code = [id number]) 6.3 % [place] RankinLIPID [id number] 00:00:00* Test Item Value Reference Range Interpretation Comme nts CHOLESTEROL (test code = 2210) 171 MG/DL TRIGLYCERIDES (test code = 2232) 121 MG/DL HDL CHOLESTEROL (test code = 2220) 59 MG/DL CALC LDL CHOL (test code = 2237) 90 MG/DL RISK RATIO LDL/HDL (test cod e = 2238) 1.53 RATIO [place] RankinCOMPREHENSIVE METABOLIC [id number] 00:00:00* Test Item Value Reference Range Interpretation Comme nts GLUCOSE (test code = 2217) 109 MG/DL BUN (test code = 2208) 23 MG/DL CREATININE (test code = 2214) 0.62 MG/DL eGFR AMER. (test cod e = 40748) 126 ML/MIN/1.73 eGFR NON- AMER. (test code = 98450) 109 ML/MIN/1.73 CALC BUN/CREAT (test code = 2235) 37 RATIO SODIUM (test code = 2231) 142 MEQ/L POTASSIUM (test code = 2228) 4.7 MEQ/L CHLORIDE (test code = 2215) 103 MEQ/L CARBON DIOXIDE (test code = 2206) 29 MEQ/L CALCIUM (test code = 2209) 9.9 MG/DL PROTEIN, TOTAL (test code = 2229) 6.4 G/DL ALBUMIN (test code = 2201) 4.1 G/DL CALC GLOBULIN (test code = 2240) 2.3 G/DL CALC A/G RATIO (test code = 2234) 1.8 RATIO BILIRUBIN, TOTAL (test code = 2207) 0.3 MG/DL ALKALINE PHOSPHATASE (test code = 2204) 90 U/L AST (test code = 2218) 24 U/L ALT (test code = 2219) 20 U/L [place] RankinVITAMIN D, 25 [id number] 00:00:00* Test Item Value Reference Range Interpretation Comme eunice VITAMIN D, 25 OH (test code = 4958) 34 NG/ML [place] RankinURIC [id number] 00:00:00* Test Item Value Reference Range Interpretation Comme eunice URIC ACID (test code = 2233) 7.4 MG/DL [place] RankinALBUMIN, URINE, RANDOM [ADDED][id number] 00:00:00* Test Item Value Reference Range Interpretation Comme nts ALBUMIN, URINE, RANDOM (test code = 23724) 0.5 MG/DL [place] RankinCOMPREHENSIVE METABOLIC [id number] 00:00:00* Test Item Value Reference Range Interpretation Comme nts GLUCOSE (test code = 2217) 111 MG/DL BUN (test code = 2208) 16 MG/DL CREATININE (test code = 2214) 0.71 MG/DL eGFR AMER. (test cod e = 11489) 119 ML/MIN/1.73 eGFR NON- AMER. (test code = 47674) 103 ML/MIN/1.73 CALC BUN/CREAT (test code = 2235) 23 RATIO SODIUM (test code = 2231) 142 MEQ/L POTASSIUM (test code = 2228) 4.8 MEQ/L CHLORIDE (test code = 2215) 102 MEQ/L CARBON DIOXIDE (test code = 2206) 28 MEQ/L CALCIUM (test code = 2209) 9.9 MG/DL PROTEIN, TOTAL (test code = 2229) 6.8 G/DL ALBUMIN (test code = 2201) 4.1 G/DL CALC GLOBULIN (test code = 2240) 2.7 G/DL CALC A/G RATIO (test code = 2234) 1.5 RATIO BILIRUBIN, TOTAL (test code = 2207) 0.3 MG/DL ALKALINE PHOSPHATASE (test code = 2204) 120 U/L AST (test code = 2218) 28 U/L ALT (test code = 2219) 35 U/L [place]inHEMOGLOBIN [id number] 00:00:00* Test Item Value Reference Range Interpretation Comme nts HEMOGLOBIN A1c (test code = 31740) 6.5 % [place] RankinCOMPREHENSIVE METABOLIC [id number] 00:00:00* Test Item Value Reference Range Interpretation Comme nts GLUCOSE (test code = 2217) 111 MG/DL BUN (test code = 2208) 16 MG/DL CREATININE (test code = 2214) 0.71 MG/DL eGFR AMER. (test cod e = 88270) 119 ML/MIN/1.73 eGFR NON- AMER. (test code = 94362) 103 ML/MIN/1.73 CALC BUN/CREAT (test code = 2235) 23 RATIO SODIUM (test code = 2231) 142 MEQ/L POTASSIUM (test code = 2228) 4.8 MEQ/L CHLORIDE (test code = 2215) 102 MEQ/L CARBON DIOXIDE (test code = 2206) 28 MEQ/L CALCIUM (test code = 2209) 9.9 MG/DL PROTEIN, TOTAL (test code = 2229) 6.8 G/DL ALBUMIN (test code = 2201) 4.1 G/DL CALC GLOBULIN (test code = 2240) 2.7 G/DL CALC A/G RATIO (test code = 2234) 1.5 RATIO BILIRUBIN, TOTAL (test code = 2207) 0.3 MG/DL ALKALINE PHOSPHATASE (test code = 2204) 120 U/L AST (test code = 2218) 28 U/L ALT (test code = 2219) 35 U/L [place] [facility]inHEMOGLOBIN [id number] 00:00:00* Test Item Value Reference Range Interpretation Comme eunice HEMOGLOBIN A1c (test code = 68660) 6.5 % [place] RankinLIPID [id number] 00:00:00* Test Item Value Reference Range Interpretation Comme nts CHOLESTEROL (test code = 2210) 240 MG/DL TRIGLYCERIDES (test code = 2232) 130 MG/DL HDL CHOLESTEROL (test code = 2220) 80 MG/DL CALC LDL CHOL (test code = 2237) 134 MG/DL RISK RATIO LDL/HDL (test cod e = 2238) 1.68 RATIO [place] RankinCOMPREHENSIVE METABOLIC [id number] 00:00:00* Test Item Value Reference Range Interpretation Comme nts GLUCOSE (test code = 2217) 101 MG/DL BUN (test code = 2208) 22 MG/DL CREATININE (test code = 2214) 0.77 MG/DL eGFR AMER. (test cod e = 90316) 115 ML/MIN/1.73 eGFR NON- AMER. (test code = 99129) 99 ML/MIN/1.73 CALC BUN/CREAT (test code = 2235) 29 RATIO SODIUM (test code = 2231) 143 MEQ/L POTASSIUM (test code = 2228) 4.5 MEQ/L CHLORIDE (test code = 2215) 103 MEQ/L CARBON DIOXIDE (test code = 2206) 27 MEQ/L CALCIUM (test code = 2209) 10.3 MG/DL PROTEIN, TOTAL (test code = 2229) 6.9 G/DL ALBUMIN (test code = 2201) 4.3 G/DL CALC GLOBULIN (test code = 2240) 2.6 G/DL CALC A/G RATIO (test code = 2234) 1.7 RATIO BILIRUBIN, TOTAL (test code = 2207) 0.3 MG/DL ALKALINE PHOSPHATASE (test code = 2204) 96 U/L AST (test code = 2218) 27 U/L ALT (test code = 2219) 52 U/L [place] [facility]inLIPID [id number] 00:00:00* Test Item Value Reference Range Interpretation Comme nts CHOLESTEROL (test code = 2210) 240 MG/DL TRIGLYCERIDES (test code = 2232) 130 MG/DL HDL CHOLESTEROL (test code = 2220) 80 MG/DL CALC LDL CHOL (test code = 2237) 134 MG/DL RISK RATIO LDL/HDL (test cod e = 2238) 1.68 RATIO [place] RankinCOMPREHENSIVE METABOLIC [id number] 00:00:00* Test Item Value Reference Range Interpretation Comme nts GLUCOSE (test code = 2217) 101 MG/DL BUN (test code = 2208) 22 MG/DL CREATININE (test code = 2214) 0.77 MG/DL eGFR AMER. (test cod e = 05877) 115 ML/MIN/1.73 eGFR NON- AMER. (test code = 86315) 99 ML/MIN/1.73 CALC BUN/CREAT (test code = 2235) 29 RATIO SODIUM (test code = 2231) 143 MEQ/L POTASSIUM (test code = 2228) 4.5 MEQ/L CHLORIDE (test code = 2215) 103 MEQ/L CARBON DIOXIDE (test code = 2206) 27 MEQ/L CALCIUM (test code = 2209) 10.3 MG/DL PROTEIN, TOTAL (test code = 2229) 6.9 G/DL ALBUMIN (test code = 2201) 4.3 G/DL CALC GLOBULIN (test code = 2240) 2.6 G/DL CALC A/G RATIO (test code = 2234) 1.7 RATIO BILIRUBIN, TOTAL (test code = 2207) 0.3 MG/DL ALKALINE PHOSPHATASE (test code = 2204) 96 U/L AST (test code = 2218) 27 U/L ALT (test code = 2219) 52 U/L [place] [facility]inURIC [id number] 00:00:00* Test Item Value Reference Range Interpretation Comme nts URIC ACID (test code = 2233) 5.5 MG/DL [place] RankinVITAMIN D, 25 [id number] 00:00:00* Test Item Value Reference Range Interpretation Comme nts VITAMIN D, 25 OH (test code = 4958) 20 NG/ML [place] [facility]inURIC [id number] 00:00:00* Test Item Value Reference Range Interpretation Comme nts URIC ACID (test code = 2233) 5.5 MG/DL [place] RankinVITAMIN D, 25 [id number] 00:00:00* Test Item Value Reference Range Interpretation Comme nts VITAMIN D, 25 OH (test code = 4958) 20 NG/ML [place] RankinCULTURE, [id number] 00:00:00* Test Item Value Reference Range Interpretation Comme nts CULTURE, URINE (test code = 21051) SPECIMEN NUMBER: [id number] [place] RankinCULTURE, [id number] 00:00:00* Test Item Value Reference Range Interpretation Comme nts CULTURE, URINE (test code = 63923) SPECIMEN NUMBER: [id number] [place] [facility]inURIC [id number] 00:00:00* Test Item Value Reference Range Interpretation Comme nts URIC ACID (test code = 2233) 4.7 MG/DL [place] RankinVITAMIN D, 25 [id number] 00:00:00* Test Item Value Reference Range Interpretation Comme nts VITAMIN D, 25 OH (test code = 4958) 23 NG/ML [place] AustinURIC [id number] 00:00:00* Test Item Value Reference Range Interpretation Comme nts URIC ACID (test code = 2233) 4.7 MG/DL [place] [facility] AustinVITAMIN D, 25 [id number] 00:00:00* Test Item Value Reference Range Interpretation Comme nts VITAMIN D, 25 OH (test code = 4958) 23 NG/ML [place] [facility] AustinHEMOGLOBIN [id number] 00:00:00* Test Item Value Reference Range Interpretation Comme nts HEMOGLOBIN A1c (test code = 93472) 7.1 % [place] [facility] AustinHEMOGLOBIN [id number] 00:00:00* Test Item Value Reference Range Interpretation Comme nts HEMOGLOBIN A1c (test code = 53679) 7.1 % [place] [facility] AustinCOMPREHENSIVE METABOLIC [id number] 00:00:00* Test Item Value Reference Range Interpretation Comme nts GLUCOSE (test code = 2217) 128 MG/DL BUN (test code = 2208) 15 MG/DL CREATININE (test code = 2214) 0.71 MG/DL eGFR AMER. (test cod e = 43738) 120 ML/MIN/1.73 eGFR NON- AMER. (test code = 97122) 103 ML/MIN/1.73 CALC BUN/CREAT (test code = 2235) 21 RATIO SODIUM (test code = 2231) 142 MEQ/L POTASSIUM (test code = 2228) 4.6 MEQ/L CHLORIDE (test code = 2215) 101 MEQ/L CARBON DIOXIDE (test code = 2206) 28 MEQ/L CALCIUM (test code = 2209) 9.9 MG/DL PROTEIN, TOTAL (test code = 222) 7.1 G/DL ALBUMIN (test code = 2201) 4.5 G/DL CALC GLOBULIN (test code = 2240) 2.6 G/DL CALC A/G RATIO (test code = 2234) 1.7 RATIO BILIRUBIN, TOTAL (test code = 2207) 0.3 MG/DL ALKALINE PHOSPHATASE (test code = 2204) 72 U/L AST (test code = 2218) 30 U/L ALT (test code = 2219) 28 U/L [place] ChuchoLIPID [id number] 00:00:00* Test Item Value Reference Range Interpretation Comme nts CHOLESTEROL (test code = 2210) 244 MG/DL TRIGLYCERIDES (test code = 2232) 114 MG/DL HDL CHOLESTEROL (test code = 2220) 76 MG/DL CALC LDL CHOL (test code = 2237) 145 MG/DL RISK RATIO LDL/HDL (test cod e = 2238) 1.91 RATIO [place] RankinHEMOGLOBIN [id number] 00:00:00* Test Item Value Reference Range Interpretation Comme nts HEMOGLOBIN A1c (test code = 93331) 7.0 % [place] ChuchoMICROALBUMIN/CREATININE, RANDOM AND [id number] 00:00:00* Test Item Value Reference Range Interpretation Comme nts CREATININE, URINE, CONC. (te st code = 2072) 129.0 MG/DL ALBUMIN, URINE, RANDOM (test code = 10669) 37.2 MG/DL CALC ALBUMIN/CREAT, RND (chalo t code = 28044) 288 MG/G [place] RankinCOMPREHENSIVE METABOLIC [id number] 00:00:00* Test Item Value Reference Range Interpretation Comme nts GLUCOSE (test code = 2217) 128 MG/DL BUN (test code = 2208) 15 MG/DL CREATININE (test code = 2214) 0.71 MG/DL eGFR AMER. (test cod e = 92148) 120 ML/MIN/1.73 eGFR NON- AMER. (test code = 69901) 103 ML/MIN/1.73 CALC BUN/CREAT (test code = 2235) 21 RATIO SODIUM (test code = 2231) 142 MEQ/L POTASSIUM (test code = 2228) 4.6 MEQ/L CHLORIDE (test code = 2215) 101 MEQ/L CARBON DIOXIDE (test code = 2206) 28 MEQ/L CALCIUM (test code = 2209) 9.9 MG/DL PROTEIN, TOTAL (test code = 2229) 7.1 G/DL ALBUMIN (test code = 2201) 4.5 G/DL CALC GLOBULIN (test code = 2240) 2.6 G/DL CALC A/G RATIO (test code = 2234) 1.7 RATIO BILIRUBIN, TOTAL (test code = 2207) 0.3 MG/DL ALKALINE PHOSPHATASE (test code = 2204) 72 U/L AST (test code = 2218) 30 U/L ALT (test code = 2219) 28 U/L [place] RankinLIPID [id number] 00:00:00* Test Item Value Reference Range Interpretation Comme nts CHOLESTEROL (test code = 2210) 244 MG/DL TRIGLYCERIDES (test code = 2232) 114 MG/DL HDL CHOLESTEROL (test code = 2220) 76 MG/DL CALC LDL CHOL (test code = 2237) 145 MG/DL RISK RATIO LDL/HDL (test cod e = 2238) 1.91 RATIO [place] [facility]inHEMOGLOBIN [id number] 00:00:00* Test Item Value Reference Range Interpretation Comme nts HEMOGLOBIN A1c (test code = 66244) 7.0 % [place] RankinMICROALBUMIN/CREATININE, RANDOM AND [id number] 00:00:00* Test Item Value Reference Range Interpretation Comme nts CREATININE, URINE, CONC. (te st code = 2072) 129.0 MG/DL ALBUMIN, URINE, RANDOM (test code = 43878) 37.2 MG/DL CALC ALBUMIN/CREAT, RND (chalo t code = 82568) 288 MG/G [place] [facility]inHEMOGLOBIN [id number] 00:00:00* Test Item Value Reference Range Interpretation Comme nts HEMOGLOBIN A1c (test code = 76342) 7.5 % [place] RankinLIPID [id number] 00:00:00* Test Item Value Reference Range Interpretation Comme nts CHOLESTEROL (test code = 2210) 233 MG/DL TRIGLYCERIDES (test code = 2232) 173 MG/DL HDL CHOLESTEROL (test code = 2220) 56 MG/DL CALC LDL CHOL (test code = 2237) 142 MG/DL RISK RATIO LDL/HDL (test cod e = 2238) 2.54 RATIO [place] RankinVITAMIN D, 25 [id number] 00:00:00* Test Item Value Reference Range Interpretation Comme eunice VITAMIN D, 25 OH (test code = 4958) 17 NG/ML [place] RankinVITAMIN [id number] 00:00:00* Test Item Value Reference Range Interpretation Comme eunice VITAMIN B-12 (test code = 2840) 921 PG/ML [place] RankinARTHRITIS [id number] 00:00:00* Test Item Value Reference Range Interpretation Comme nts RHEUMATOID FACTOR, QUANT (te st code = 3502) <10 IU/ML URIC ACID (test code = 2233) 7.2 MG/DL SEDIMENTATION RATE (test cod e = 1017) 30 MM/HOUR ANTI-NUCLEAR ANTIBODIES (chalo t code = 3506) NEGATIVE [place] [facility] AustinMICROALBUMIN/CREATININE, RANDOM AND [id number] 00:00:00* Test Item Value Reference Range Interpretation Comme nts CREATININE, URINE, CONC. (te st code = 2072) 344.6 MG/DL MICROALBUMIN, RANDOM (test c ode = 30441) 37.9 MG/DL CALC MICROALB/CREAT RND (chalo t code = 66160) 110 MG/G [place] [facility]inHEMOGLOBIN [id number] 00:00:00* Test Item Value Reference Range Interpretation Comme nts HEMOGLOBIN A1c (test code = 78846) 7.5 % [place] RankinLIPID [id number] 00:00:00* Test Item Value Reference Range Interpretation Comme nts CHOLESTEROL (test code = 2210) 233 MG/DL TRIGLYCERIDES (test code = 2232) 173 MG/DL HDL CHOLESTEROL (test code = 2220) 56 MG/DL CALC LDL CHOL (test code = 2237) 142 MG/DL RISK RATIO LDL/HDL (test cod e = 2238) 2.54 RATIO [place] RankinVITAMIN D, 25 [id number] 00:00:00* Test Item Value Reference Range Interpretation Comme eunice VITAMIN D, 25 OH (test code = 4958) 17 NG/ML [place] RankinVITAMIN [id number] 00:00:00* Test Item Value Reference Range Interpretation Comme eunice VITAMIN B-12 (test code = 2840) 921 PG/ML [place] RankinARTHRITIS [id number] 00:00:00* Test Item Value Reference Range Interpretation Comme eunice RHEUMATOID FACTOR, QUANT (te st code = 3502) <10 IU/ML URIC ACID (test code = 2233) 7.2 MG/DL SEDIMENTATION RATE (test cod e = 1017) 30 MM/HOUR ANTI-NUCLEAR ANTIBODIES (chalo t code = 3506) NEGATIVE [place] RankinMICROALBUMIN/CREATININE, RANDOM AND [id number] 00:00:00* Test Item Value Reference Range Interpretation Comme eunice CREATININE, URINE, CONC. (te st code = 2072) 344.6 MG/DL MICROALBUMIN, RANDOM (test c ode = 00545) 37.9 MG/DL CALC MICROALB/CREAT RND (chalo t code = 35588) 110 MG/G [place] RankinCOMPREHENSIVE METABOLIC [id number] 00:00:00* Test Item Value Reference Range Interpretation Comme nts GLUCOSE (test code = 2217) 248 MG/DL BUN (test code = 2208) 20 MG/DL CREATININE (test code = 2214) 0.74 MG/DL eGFR AMER. (test cod e = 23457) 119 ML/MIN/1.73 eGFR NON- AMER. (test code = 11241) 102 ML/MIN/1.73 CALC BUN/CREAT (test code = 2235) 27 RATIO SODIUM (test code = 2231) 137 MEQ/L POTASSIUM (test code = 2228) 4.1 MEQ/L CHLORIDE (test code = 2215) 97 MEQ/L CARBON DIOXIDE (test code = 2206) 24 MEQ/L CALCIUM (test code = 2209) 9.1 MG/DL PROTEIN, TOTAL (test code = 2229) 6.9 G/DL ALBUMIN (test code = 2201) 4.2 G/DL CALC GLOBULIN (test code = 2240) 2.7 G/DL CALC A/G RATIO (test code = 2234) 1.6 RATIO BILIRUBIN, TOTAL (test code = 2207) 0.2 MG/DL ALKALINE PHOSPHATASE (test code = 2204) 85 U/L AST (test code = 2218) 26 U/L ALT (test code = 2219) 26 U/L [place] EskdaleLIPID [id number] 00:00:00* Test Item Value Reference Range Interpretation Comme nts CHOLESTEROL (test code = 2210) 237 MG/DL TRIGLYCERIDES (test code = 2232) 267 MG/DL HDL CHOLESTEROL (test code = 2220) 51 MG/DL CALC LDL CHOL (test code = 2237) 133 MG/DL RISK RATIO LDL/HDL (test cod e = 2238) 2.60 RATIO [place] [id number] 00:00:00* Test Item Value Reference Range Interpretation Comme nts TSH (test code = 2821) 2.770 UIU/ML [place] EskdaleCOMPREHENSIVE METABOLIC [id number] 00:00:00* Test Item Value Reference Range Interpretation Comme nts GLUCOSE (test code = 2217) 248 MG/DL BUN (test code = 2208) 20 MG/DL CREATININE (test code = 2214) 0.74 MG/DL eGFR AMER. (test cod e = 83273) 119 ML/MIN/1.73 eGFR NON- AMER. (test code = 06284) 102 ML/MIN/1.73 CALC BUN/CREAT (test code = 2235) 27 RATIO SODIUM (test code = 2231) 137 MEQ/L POTASSIUM (test code = 2228) 4.1 MEQ/L CHLORIDE (test code = 2215) 97 MEQ/L CARBON DIOXIDE (test code = 2206) 24 MEQ/L CALCIUM (test code = 2209) 9.1 MG/DL PROTEIN, TOTAL (test code = 2229) 6.9 G/DL ALBUMIN (test code = 2201) 4.2 G/DL CALC GLOBULIN (test code = 2240) 2.7 G/DL CALC A/G RATIO (test code = 2234) 1.6 RATIO BILIRUBIN, TOTAL (test code = 2207) 0.2 MG/DL ALKALINE PHOSPHATASE (test code = 2204) 85 U/L AST (test code = 2218) 26 U/L ALT (test code = 2219) 26 U/L [place] RankinLIPID [id number] 00:00:00* Test Item Value Reference Range Interpretation Comme nts CHOLESTEROL (test code = 2210) 237 MG/DL TRIGLYCERIDES (test code = 2232) 267 MG/DL HDL CHOLESTEROL (test code = 2220) 51 MG/DL CALC LDL CHOL (test code = 2237) 133 MG/DL RISK RATIO LDL/HDL (test cod e = 2238) 2.60 RATIO [place] [id number] 00:00:00* Test Item Value Reference Range Interpretation Comme nts TSH (test code = 2821) 2.770 UIU/ML [place] [facility]inCBC W/AUTO [id number] 00:00:00* Test Item Value Reference Range Interpretation Comme nts WBC (test code = 1001) 7.5 K/UL RBC (test code = 1002) 4.23 M/UL HEMOGLOBIN (test code = 1003) 12.2 G/DL HEMATOCRIT (test code = 1004) 36.0 % MCV (test code = 1005) 85.1 fL MCH (test code = 1006) 28.8 PG MCHC (test code = 1007) 33.9 G/DL RDW (test code = 1038) 12.6 % NEUTROPHILS (test code = 1008) 62.4 % LYMPHOCYTES (test code = 1010) 15.1 % MONOCYTES (test code = 1011) 8.0 % EOSINOPHILS (test code = 1012) 14.1 % BASOPHILS (test code = 1013) 0.4 % PLATELET COUNT (test code = 1015) 196 K/UL [place] [facility]inHEMOGLOBIN [id number] 00:00:00* Test Item Value Reference Range Interpretation Comme nts HEMOGLOBIN A1c (test code = 91659) 7.3 % [place] RankinCBC W/AUTO [id number] 00:00:00* Test Item Value Reference Range Interpretation Comme nts WBC (test code = 1001) 7.5 K/UL RBC (test code = 1002) 4.23 M/UL HEMOGLOBIN (test code = 1003) 12.2 G/DL HEMATOCRIT (test code = 1004) 36.0 % MCV (test code = 1005) 85.1 fL MCH (test code = 1006) 28.8 PG MCHC (test code = 1007) 33.9 G/DL RDW (test code = 1038) 12.6 % NEUTROPHILS (test code = 1008) 62.4 % LYMPHOCYTES (test code = 1010) 15.1 % MONOCYTES (test code = 1011) 8.0 % EOSINOPHILS (test code = 1012) 14.1 % BASOPHILS (test code = 1013) 0.4 % PLATELET COUNT (test code = 1015) 196 K/UL [place] [facility]inHEMOGLOBIN [id number] 00:00:00* Test Item Value Reference Range Interpretation Comme [facility] HEMOGLOBIN A1c (test code = 30183) 7.3 % [place] RankinVITAMIN B 12 AND FOLIC [id number] 00:00:00* Test Item Value Reference Range Interpretation Comme nts VITAMIN B-12 (test code = 2840) 411 PG/ML FOLIC ACID (test code = 2695) 15.0 UG/L [place] [id number] 00:00:00* Test Item Value Reference Range Interpretation Comme nts FERRITIN (test code = 2075) 414 NG/ML [place]inIRON BINDING CAPACITY AND IRON AND % [id number] 00:00:00* Test Item Value Reference Range Interpretation Comme nts IRON, SERUM (test code = 2222) 87 UG/DL UNSATURATED IBC (test code = 96478) 229 UG/DL CALC TOTAL IBC (test code = 7) 316 UG/DL CALC % IRON SAT (test code = 2079) 28 % [place] RankinRETICULOCYTE [id number] 00:00:00* Test Item Value Reference Range Interpretation Comme nts RETICULOCYTE COUNT (test code = 1018) 1.7 % [place] [facility] AustinVITAMIN B 12 AND FOLIC [id number] 00:00:00* Test Item Value Reference Range Interpretation Comme nts VITAMIN B-12 (test code = 2840) 411 PG/ML FOLIC ACID (test code = 2695) 15.0 UG/L [place] [id number] 00:00:00* Test Item Value Reference Range Interpretation Comme nts FERRITIN (test code = 2074) 414 NG/ML [place] [facility] AustinIRON BINDING CAPACITY AND IRON AND % [id number] 00:00:00* Test Item Value Reference Range Interpretation Comme nts IRON, SERUM (test code = 222) 87 UG/DL UNSATURATED IBC (test code = 01333) 229 UG/DL CALC TOTAL IBC (test code = 2076) 316 UG/DL CALC % IRON SAT (test code = 2078) 28 % [place] RankinRETICULOCYTE [id number] 00:00:00* Test Item Value Reference Range Interpretation Comme nts RETICULOCYTE COUNT (test code = 1018) 1.7 % [place] RankinCOMPREHENSIVE METABOLIC [id number] 00:00:00* Test Item Value Reference Range Interpretation Comme nts GLUCOSE (test code = 2217) 185 MG/DL BUN (test code = 2208) 13 MG/DL CREATININE (test code = 2214) 0.84 MG/DL eGFR AMER. (test cod e = 19818) 113 ML/MIN/1.73 eGFR NON- AMER. (test code = 00503) 98 ML/MIN/1.73 CALC BUN/CREAT (test code = 2235) 15 RATIO SODIUM (test code = 2231) 140 MEQ/L POTASSIUM (test code = 2228) 4.4 MEQ/L CHLORIDE (test code = 2215) 99 MEQ/L CARBON DIOXIDE (test code = 2206) 25 MEQ/L CALCIUM (test code = 2209) 9.4 MG/DL PROTEIN, TOTAL (test code = 2229) 6.8 G/DL ALBUMIN (test code = 2201) 4.4 G/DL CALC GLOBULIN (test code = 2240) 2.4 G/DL CALC A/G RATIO (test code = 2234) 1.8 RATIO BILIRUBIN, TOTAL (test code = 2207) 0.2 MG/DL ALKALINE PHOSPHATASE (test code = 2204) 71 U/L AST (test code = 2218) 38 U/L ALT (test code = 2219) 40 U/L [place] RankinLIPID [id number] 00:00:00* Test Item Value Reference Range Interpretation Comme nts CHOLESTEROL (test code = 2210) 213 MG/DL TRIGLYCERIDES (test code = 2232) 234 MG/DL HDL CHOLESTEROL (test code = 2220) 48 MG/DL CALC LDL CHOL (test code = 2237) 118 MG/DL RISK RATIO LDL/HDL (test cod e = 2238) 2.46 RATIO [place] RankinCBC W/AUTO [id number] 00:00:00* Test Item Value Reference Range Interpretation Comme nts WBC (test code = 1001) 5.2 K/UL RBC (test code = 1002) 4.19 M/UL HEMOGLOBIN (test code = 1003) 11.8 G/DL HEMATOCRIT (test code = 1004) 34.9 % MCV (test code = 1005) 83.3 fL MCH (test code = 1006) 28.2 PG MCHC (test code = 1007) 33.8 G/DL RDW (test code = 1038) 12.7 % NEUTROPHILS (test code = 1008) 68.4 % LYMPHOCYTES (test code = 1010) 8.8 % MONOCYTES (test code = 1011) 10.9 % EOSINOPHILS (test code = 1012) 11.3 % BASOPHILS (test code = 1013) 0.6 % PLATELET COUNT (test code = 1015) 169 K/UL [place] RankinHEMOGLOBIN [id number] 00:00:00* Test Item Value Reference Range Interpretation Comme eunice HEMOGLOBIN A1c (test code = 54314) 7.3 % Los RankinCOMPREHENSIVE METABOLIC [id number] 00:00:00* Test Item Value Reference Range Interpretation Comme nts GLUCOSE (test code = 2217) 185 MG/DL BUN (test code = 2208) 13 MG/DL CREATININE (test code = 2214) 0.84 MG/DL eGFR AMER. (test cod e = 81785) 113 ML/MIN/1.73 eGFR NON- AMER. (test code = 86008) 98 ML/MIN/1.73 CALC BUN/CREAT (test code = 2235) 15 RATIO SODIUM (test code = 2231) 140 MEQ/L POTASSIUM (test code = 2228) 4.4 MEQ/L CHLORIDE (test code = 2215) 99 MEQ/L CARBON DIOXIDE (test code = 2206) 25 MEQ/L CALCIUM (test code = 2209) 9.4 MG/DL PROTEIN, TOTAL (test code = 2229) 6.8 G/DL ALBUMIN (test code = 2201) 4.4 G/DL CALC GLOBULIN (test code = 2240) 2.4 G/DL CALC A/G RATIO (test code = 2234) 1.8 RATIO BILIRUBIN, TOTAL (test code = 2207) 0.2 MG/DL ALKALINE PHOSPHATASE (test code = 2204) 71 U/L AST (test code = 2218) 38 U/L ALT (test code = 2219) 40 U/L [place] RankinLIPID [id number] 00:00:00* Test Item Value Reference Range Interpretation Comme nts CHOLESTEROL (test code = 2210) 213 MG/DL TRIGLYCERIDES (test code = 2232) 234 MG/DL HDL CHOLESTEROL (test code = 2220) 48 MG/DL CALC LDL CHOL (test code = 2237) 118 MG/DL RISK RATIO LDL/HDL (test cod e = 2238) 2.46 RATIO [place] RankinCBC W/AUTO [id number] 00:00:00* Test Item Value Reference Range Interpretation Comme nts WBC (test code = 1001) 5.2 K/UL RBC (test code = 1002) 4.19 M/UL HEMOGLOBIN (test code = 1003) 11.8 G/DL HEMATOCRIT (test code = 1004) 34.9 % MCV (test code = 1005) 83.3 fL MCH (test code = 1006) 28.2 PG MCHC (test code = 1007) 33.8 G/DL RDW (test code = 1038) 12.7 % NEUTROPHILS (test code = 1008) 68.4 % LYMPHOCYTES (test code = 1010) 8.8 % MONOCYTES (test code = 1011) 10.9 % EOSINOPHILS (test code = 1012) 11.3 % BASOPHILS (test code = 1013) 0.6 % PLATELET COUNT (test code = 1015) 169 K/UL [place] RankinHEMOGLOBIN [id number] 00:00:00* Test Item Value Reference Range Interpretation Comme nts HEMOGLOBIN A1c (test code = 41842) 7.3 % Los RankinCOMPREHENSIVE METABOLIC [id number] 00:00:00* Test Item Value Reference Range Interpretation Comme nts GLUCOSE (test code = 2217) 117 MG/DL BUN (test code = 2208) 18 MG/DL CREATININE (test code = 2214) 0.93 MG/DL eGFR AMER. (test cod e = 97775) 106 ML/MIN/1.73 eGFR NON- AMER. (test code = 10768) 91 ML/MIN/1.73 CALC BUN/CREAT (test code = 2235) 19 RATIO SODIUM (test code = 2231) 141 MEQ/L POTASSIUM (test code = 2228) 4.9 MEQ/L CHLORIDE (test code = 2215) 100 MEQ/L CARBON DIOXIDE (test code = 2206) 28 MEQ/L CALCIUM (test code = 2209) 9.6 MG/DL PROTEIN, TOTAL (test code = 2229) 6.6 G/DL ALBUMIN (test code = 2201) 4.3 G/DL CALC GLOBULIN (test code = 2240) 2.3 G/DL CALC A/G RATIO (test code = 2234) 1.9 RATIO BILIRUBIN, TOTAL (test code = 2207) 0.4 MG/DL ALKALINE PHOSPHATASE (test code = 2204) 70 U/L AST (test code = 2218) 57 U/L ALT (test code = 2219) 64 U/L [place] RankinLIPID [id number] 00:00:00* Test Item Value Reference Range Interpretation Comme nts CHOLESTEROL (test code = 2210) 207 MG/DL TRIGLYCERIDES (test code = 2232) 122 MG/DL HDL CHOLESTEROL (test code = 2220) 56 MG/DL CALC LDL CHOL (test code = 2237) 127 MG/DL RISK RATIO LDL/HDL (test cod e = 2238) 2.26 RATIO [place] RankinCBC W/AUTO [id number] 00:00:00* Test Item Value Reference Range Interpretation Comme nts WBC (test code = 1001) 8.2 K/UL RBC (test code = 1002) 4.96 M/UL HEMOGLOBIN (test code = 1003) 13.9 G/DL HEMATOCRIT (test code = 1004) 42.5 % MCV (test code = 1005) 85.7 fL MCH (test code = 1006) 28.0 PG MCHC (test code = 1007) 32.7 G/DL RDW (test code = 1038) 12.2 % NEUTROPHILS (test code = 1008) 66.3 % LYMPHOCYTES (test code = 1010) 16.1 % MONOCYTES (test code = 1011) 9.4 % EOSINOPHILS (test code = 1012) 7.7 % BASOPHILS (test code = 1013) 0.5 % PLATELET COUNT (test code = 1015) 224 K/UL [place] RankinHEMOGLOBIN [id number] 00:00:00* Test Item Value Reference Range Interpretation Comme nts HEMOGLOBIN A1c (test code = 21330) 6.9 % [place] RankinTHYROID II PROFILE (T3U, T4, T7, TSH)2016-03-29 00:00:00* Test Item Value Reference Range Interpretation Comme nts T3 UPTAKE (test code = 2817) 30.0 % T4 (THYROXINE) (test code = 2819) 8.1 UG/DL CALCULATED T7 (FTI) (test co de = 2820) 2.43 TSH (test code = 2821) 2.5 UIU/ML [place] ChuchoCOMPREHENSIVE METABOLIC [id number] 00:00:00* Test Item Value Reference Range Interpretation Comme nts GLUCOSE (test code = 2217) 117 MG/DL BUN (test code = 2208) 18 MG/DL CREATININE (test code = 2214) 0.93 MG/DL eGFR AMER. (test cod e = 53454) 106 ML/MIN/1.73 eGFR NON- AMER. (test code = 12321) 91 ML/MIN/1.73 CALC BUN/CREAT (test code = 2235) 19 RATIO SODIUM (test code = 2231) 141 MEQ/L POTASSIUM (test code = 2228) 4.9 MEQ/L CHLORIDE (test code = 2215) 100 MEQ/L CARBON DIOXIDE (test code = 2206) 28 MEQ/L CALCIUM (test code = 2209) 9.6 MG/DL PROTEIN, TOTAL (test code = 2229) 6.6 G/DL ALBUMIN (test code = 2201) 4.3 G/DL CALC GLOBULIN (test code = 2240) 2.3 G/DL CALC A/G RATIO (test code = 2234) 1.9 RATIO BILIRUBIN, TOTAL (test code = 2207) 0.4 MG/DL ALKALINE PHOSPHATASE (test code = 2204) 70 U/L AST (test code = 2218) 57 U/L ALT (test code = 2219) 64 U/L [place] RankinLIPID [id number] 00:00:00* Test Item Value Reference Range Interpretation Comme nts CHOLESTEROL (test code = 2210) 207 MG/DL TRIGLYCERIDES (test code = 2232) 122 MG/DL HDL CHOLESTEROL (test code = 2220) 56 MG/DL CALC LDL CHOL (test code = 2237) 127 MG/DL RISK RATIO LDL/HDL (test cod e = 2238) 2.26 RATIO [place] [facility]inCBC W/AUTO [id number] 00:00:00* Test Item Value Reference Range Interpretation Comme nts WBC (test code = 1001) 8.2 K/UL RBC (test code = 1002) 4.96 M/UL HEMOGLOBIN (test code = 1003) 13.9 G/DL HEMATOCRIT (test code = 1004) 42.5 % MCV (test code = 1005) 85.7 fL MCH (test code = 1006) 28.0 PG MCHC (test code = 1007) 32.7 G/DL RDW (test code = 1038) 12.2 % NEUTROPHILS (test code = 1008) 66.3 % LYMPHOCYTES (test code = 1010) 16.1 % MONOCYTES (test code = 1011) 9.4 % EOSINOPHILS (test code = 1012) 7.7 % BASOPHILS (test code = 1013) 0.5 % PLATELET COUNT (test code = 1015) 224 K/UL [place] RankinHEMOGLOBIN [id number] 00:00:00* Test Item Value Reference Range Interpretation Comme nts HEMOGLOBIN A1c (test code = 66598) 6.9 % [place] RankinTHYROID II PROFILE (T3U, T4, T7, TSH)2016-03-29 00:00:00* Test Item Value Reference Range Interpretation Comme nts T3 UPTAKE (test code = 2817) 30.0 % T4 (THYROXINE) (test code = 2819) 8.1 UG/DL CALCULATED T7 (FTI) (test co de = 2820) 2.43 TSH (test code = 2821) 2.5 UIU/ML [place] RankinHEMOGLOBIN [id number] 00:00:00* Test Item Value Reference Range Interpretation Comme nts HEMOGLOBIN A1c (test code = 56364) 10.2 % [place] RankinHEMOGLOBIN [id number] 00:00:00* Test Item Value Reference Range Interpretation Comme nts HEMOGLOBIN A1c (test code = 85398) 10.2 % [place] RankinPSA, [id number] 00:00:00* Test Item Value Reference Range Interpretation Comme nts PSA, TOTAL (test code = 2606) 1.6 NG/ML [place] RankinPSA, [id number] 00:00:00* Test Item Value Reference Range Interpretation Comme nts PSA, TOTAL (test code = 2606) 1.6 NG/ML [place] RankinLIPID [id number] 00:00:00* Test Item Value Reference Range Interpretation Comme nts CHOLESTEROL (test code = 2210) 192 MG/DL TRIGLYCERIDES (test code = 2232) 201 MG/DL HDL CHOLESTEROL (test code = 2220) 51 MG/DL CALC LDL CHOL (test code = 2237) 101 MG/DL RISK RATIO LDL/HDL (test cod e = 2238) 1.98 RATIO [place] RankinCBC W/AUTO [id number] 00:00:00* Test Item Value Reference Range Interpretation Comme nts WBC (test code = 1001) 7.8 K/UL RBC (test code = 1002) 5.03 M/UL HEMOGLOBIN (test code = 1003) 13.7 G/DL HEMATOCRIT (test code = 1004) 42.4 % MCV (test code = 1005) 84.3 fL MCH (test code = 1006) 27.2 PG MCHC (test code = 1007) 32.3 G/DL RDW (test code = 1038) 13.6 % NEUTROPHILS (test code = 1008) 60 % LYMPHOCYTES (test code = 1010) 24 % MONOCYTES (test code = 1011) 9 % EOSINOPHILS (test code = 1012) 7 % PLATELET COUNT (test code = 1015) 199 K/UL [place] AustinHEMOGLOBIN [id number] 00:00:00* Test Item Value Reference Range Interpretation Comme nts HEMOGLOBIN A1c (test code = 25697) 9.7 % [place] RankinTHYROID II PROFILE (T3U, T4, T7, TSH)2015-10-17 00:00:00* Test Item Value Reference Range Interpretation Comme nts T3 UPTAKE (test code = 2817) 27.2 % T4 (THYROXINE) (test code = 2819) 8.1 UG/DL CALCULATED T7 (FTI) (test co de = 2820) 2.20 TSH (test code = 2821) 2.3 UIU/ML [place] RankinPSA, [id number] 00:00:00* Test Item Value Reference Range Interpretation Comme nts PSA, TOTAL (test code = 2606) 1.6 NG/ML [place] RankinCOMPREHENSIVE METABOLIC [id number] 00:00:00* Test Item Value Reference Range Interpretation Comme nts GLUCOSE (test code = 2217) 229 MG/DL BUN (test code = 2208) 25 MG/DL CREATININE (test code = 2214) 0.96 MG/DL eGFR AMER. (test cod e = 99482) 103 ML/MIN/1.73 eGFR NON- AMER. (test code = 97499) 89 ML/MIN/1.73 CALC BUN/CREAT (test code = 2235) 26 RATIO SODIUM (test code = 2231) 142 MEQ/L POTASSIUM (test code = 2228) 4.9 MEQ/L CHLORIDE (test code = 2215) 100 MEQ/L CARBON DIOXIDE (test code = 2206) 20 MEQ/L CALCIUM (test code = 2209) 9.9 MG/DL PROTEIN, TOTAL (test code = 2229) 7.0 G/DL ALBUMIN (test code = 2201) 4.3 G/DL CALC GLOBULIN (test code = 2240) 2.7 G/DL CALC A/G RATIO (test code = 2234) 1.6 RATIO BILIRUBIN, TOTAL (test code = 2207) 0.2 MG/DL ALKALINE PHOSPHATASE (test code = 2204) 78 U/L AST (test code = 2218) 38 U/L ALT (test code = 2219) 51 U/L [place] RankinLIPID [id number] 00:00:00* Test Item Value Reference Range Interpretation Comme nts CHOLESTEROL (test code = 2210) 192 MG/DL TRIGLYCERIDES (test code = 2232) 201 MG/DL HDL CHOLESTEROL (test code = 2220) 51 MG/DL CALC LDL CHOL (test code = 2237) 101 MG/DL RISK RATIO LDL/HDL (test cod e = 2238) 1.98 RATIO [facility] [id number] 00:00:00* Test Item Value Reference Range Interpretation Comme nts WBC (test code = 1001) 7.8 K/UL RBC (test code = 1002) 5.03 M/UL HEMOGLOBIN (test code = 1003) 13.7 G/DL HEMATOCRIT (test code = 1004) 42.4 % MCV (test code = 1005) 84.3 fL MCH (test code = 1006) 27.2 PG MCHC (test code = 1007) 32.3 G/DL RDW (test code = 1038) 13.6 % NEUTROPHILS (test code = 1008) 60 % LYMPHOCYTES (test code = 1010) 24 % MONOCYTES (test code = 1011) 9 % EOSINOPHILS (test code = 1012) 7 % PLATELET COUNT (test code = 1015) 199 K/UL [place] RankinHEMOGLOBIN [id number] 00:00:00* Test Item Value Reference Range Interpretation Comme nts HEMOGLOBIN A1c (test code = 64277) 9.7 % [place] RankinTHYROID II PROFILE (T3U, T4, T7, TSH)2015-10-17 00:00:00* Test Item Value Reference Range Interpretation Comme nts T3 UPTAKE (test code = 2817) 27.2 % T4 (THYROXINE) (test code = 2819) 8.1 UG/DL CALCULATED T7 (FTI) (test co de = 2820) 2.20 TSH (test code = 2821) 2.3 UIU/ML [place] RankinPSA, [id number] 00:00:00* Test Item Value Reference Range Interpretation Comme nts PSA, TOTAL (test code = 2606) 1.6 NG/ML [place] RankinCOMPREHENSIVE METABOLIC [id number] 00:00:00* Test Item Value Reference Range Interpretation Comme nts GLUCOSE (test code = 2217) 229 MG/DL BUN (test code = 2208) 25 MG/DL CREATININE (test code = 2214) 0.96 MG/DL eGFR AMER. (test cod e = 02021) 103 ML/MIN/1.73 eGFR NON- AMER. (test code = 93912) 89 ML/MIN/1.73 CALC BUN/CREAT (test code = 2235) 26 RATIO SODIUM (test code = 2231) 142 MEQ/L POTASSIUM (test code = 2228) 4.9 MEQ/L CHLORIDE (test code = 2215) 100 MEQ/L CARBON DIOXIDE (test code = 2206) 20 MEQ/L CALCIUM (test code = 2209) 9.9 MG/DL PROTEIN, TOTAL (test code = 2229) 7.0 G/DL ALBUMIN (test code = 2201) 4.3 G/DL CALC GLOBULIN (test code = 2240) 2.7 G/DL CALC A/G RATIO (test code = 2234) 1.6 RATIO BILIRUBIN, TOTAL (test code = 2207) 0.2 MG/DL ALKALINE PHOSPHATASE (test code = 2204) 78 U/L AST (test code = 2218) 38 U/L ALT (test code = 2219) 51 U/L [place] RankinHEMOGLOBIN [id number] 00:00:00* Test Item Value Reference Range Interpretation Comme nts HEMOGLOBIN A1c (test code = 25275) 7.3 % [place] EskdaleHEMOGLOBIN [id number] 00:00:00* Test Item Value Reference Range Interpretation Comme nts HEMOGLOBIN A1c (test code = 12017) 7.3 % [place] EskdaleHEMOGLOBIN [id number] 00:00:00* Test Item Value Reference Range Interpretation Comme nts HEMOGLOBIN A1c (test code = 40896) 7.5 % [place] EskdaleHEMOGLOBIN [id number] 00:00:00* Test Item Value Reference Range Interpretation Comme nts HEMOGLOBIN A1c (test code = 60348) 7.5 % [place] Chucho Notes | Date/Time Note [facility]"
[2024-01-28] MEDS ORDERED: BISACODYL 10 MG RECTAL SUPP PR PRN (18:01)
[2024-01-28] MEDS: INSULIN REGULAR (HUMAN) 100 UNIT/ML SQ SCH (18:51)
[2024-01-28] MEDS: ENOXAPARIN 60 MG/0.6 ML SQ SCH (20:17)
[2024-01-28 20:30] LABS: Specific Gravity 1.021 (1.005-1.030); Sqamous Epithelial None Seen /HPF (None Seen); Urine Bacteria None Seen /HPF (<20); Urine Bilirubin NEGATIVE (Negative); Urine Blood Trace (Negative); Urine Clarity Clear (Clear); Urine Color Light-Yellow (Yellow); Urine Culture Reflex Order NOT NEEDED; Urine Glucose NEGATIVE (Negative); Urine Ketones NEGATIVE (Negative); Urine Micro Reflex YN NO BILL MICROSCOPIC; Urine Nitrite NEGATIVE (Negative); Urine Protein NEGATIVE (Negative); Urine Urobilinogen 1+ (Normal); Urine WBC <5 /HPF (<5)
[2024-01-28] MEDS: PREGABALIN 50 MG CAP PO SCH (20:52)
[2024-01-28] MEDS: HYDROCODONE/APAP 10/325 TAB PO PRN (20:52)
[2024-01-28] MEDS: ATORVASTATIN 20 MG TAB PO SCH (20:53)
[2024-01-28] MEDS: methocarbamoL 500 MG TAB PO PRN (20:53)
[2024-01-28] MEDS: DOCUSATE NA 100 MG CAP PO SCH (20:53)
[2024-01-28] MEDS: SENOSIDES 8.6 MG TAB PO SCH (20:53)
[2024-01-28] MEDS ORDERED: INSULIN REGULAR (HUMAN) 100 UNIT/ML SQ SCH (21:00)
[2024-01-29 02:08] VITALS: BMI 59.7
[2024-01-29 05:57] LABS: Absolute Basophils 0.1 K/uL (0-0.5); Absolute Eosinophils 0.3 K/uL (0-0.5); Absolute Lymphocytes (CBC) 1.7 K/uL (0.7-4.9); Absolute Monocytes 0.7 K/uL (0.1-1.3); Absolute Neutrophil 4.2 K/uL (1.8-8.0); Basophils % 0.8 % (0-1.3); Eosinophils % 4.1 % (0-4.4); Hematocrit 28.9 % (39.6-49.0); Hemoglobin 9.7 g/dL (13.6-17.9); MCH 29.3 pg (27.0-35.0); MCHC 33.5 g/dL (32.0-36.0); MCV 87.3 fL (80-100); MPV 7.6 fL (7.6-11.3); Monocytes % 10.3 % (3.3-12.3); Neutrophils % 60.8 % (41.7-73.7); Nucleated Red Blood Cells % 0.1 % (0-0); Platelets 257 thou/uL (152-406); RBC Red Blood Cell Count 3.32 M/uL (4.33-5.43); Red Cell Distribution Width 13.1 % (12.1-15.2)
[2024-01-29 06:15] LABS: Albumin 2.9 g/dL (3.4-5.0); Anion Gap 8.1 mEq/L (5.0-15.0); Magnesium 1.8 mg/dL (1.6-2.4); Potassium 4.1 mEq/L (3.5-5.1); Prealbumin 14.7 mg/dL (20-40)
[2024-01-29 07:06] LABS: Blood Morphology Comment NOT SEEN (NOT SEEN); Differential Total Cells Count 100; Eosinophils 2 % (0-3); Lymphocytes 24 % (15-42); Monocytes 14 % (0-10); Platelet Estimate ADEQ; Platelets Clumped NOTED; Segmented Neutrophils 60 % (40-80)
[2024-01-29] MEDS: LINAGLIPTIN 5 MG PO SCH (08:00)
[2024-01-29] MEDS: PREGABALIN 50 MG CAP PO SCH (08:16)
[2024-01-29] MEDS: LIDOCAINE 4% PATCH TOP SCH (08:16)
[2024-01-29] MEDS: glipiZIDE 5 MG TAB PO SCH (08:17)
[2024-01-29] MEDS: CRANBERRY FRUIT EXTRACT 200 MG CAP PO SCH (08:17)
[2024-01-29] MEDS: METFORMIN ER 500 MG TAB PO SCH (08:18)
[2024-01-29] MEDS: lisinopriL 5 MG TAB PO SCH (08:21)
[2024-01-29] MEDS: INFLUENZA VACCINE (for 6+ mo) 0.5 ML DOSE IMVAC ONE (12:00)
[2024-01-29] MEDS: PROPRANOLOL HCL 80 MG SA CAP PO SCH (12:17)
--- NOTE | 2024-01-29 14:03 | P.RH.PN ---
Estimated Length of Stay: 10 Expected Discharge Date: 02/05/24 Discharge Disposition Plan: Home Family Support: Yes [facility] Goal: Mobility, Transfers, Self Care Vital Signs: Last Vital Signs Temp 97.2 F 01/29/24 08:00 Pulse 96 H 01/29/24 12:17 Resp 18 01/29/24 09:31 BP 143/63 H 01/29/24 12:17 Pulse Ox 97 01/29/24 09:31 Laboratory: Laboratory Last Values WBC 6.90 thou/uL (4.3-10.9) 01/29/24 05:29 RBC 3.32 M/uL (4.33-5.43) L 01/29/24 05:29 Hgb 9.7 g/dL (13.6-17.9) L 01/29/24 05:29 Hct 28.9 % (39.6-49.0) L 01/29/24 05:29 MCV 87.3 fL (80-100) 01/29/24 05:29 MCH 29.3 pg (27.0-35.0) 01/29/24 05:29 MCHC 33.5 g/dL (32.0-36.0) 01/29/24 05:29 RDW 13.1 % (12.1-15.2) 01/29/24 05:29 Plt Count 257 thou/uL (152-406) 01/29/24 05:29 MPV 7.6 fL (7.6-11.3) 01/29/24 05:29 Neutrophils % 60.8 % (41.7-73.7) 01/29/24 05:29 Lymphocytes % 24.0 % (15.3-44.8) 01/29/24 05:29 Monocytes % 10.3 % (3.3-12.3) 01/29/24 05:29 Eosinophils % 4.1 % (0-4.4) 01/29/24 05:29 Basophils % 0.8 % (0-1.3) 01/29/24 05:29 Absolute Neutrophils 4.2 K/uL (1.8-8.0) 01/29/24 05:29 Segmented Neutrophils 60 % (40-80) 01/29/24 05:29 Absolute Lymphocytes 1.7 K/uL (0.7-4.9) 01/29/24 05:29 Lymphocytes 24 % (15-42) 01/29/24 05:29 Monocytes 14 % (0-10) H 01/29/24 05:29 Absolute Monocytes 0.7 K/uL (0.1-1.3) 01/29/24 05:29 Eosinophils 2 % (0-3) 01/29/24 05:29 Absolute Eosinophils 0.3 K/uL (0-0.5) 01/29/24 05:29 Absolute Basophils 0.1 K/uL (0-0.5) 01/29/24 05:29 Platelet Estimate Adeq 01/29/24 05:29 Clumped Platelets Noted 01/29/24 05:29 Morphology Comment Not seen (NOT SEEN) 01/29/24 05:29 Sodium 137 mEq/L (136-145) 01/29/24 05:29 Potassium 4.1 mEq/L (3.5-5.1) 01/29/24 05:29 Chloride 102 mEq/L (98-107) 01/29/24 05:29 Carbon Dioxide 31 mEq/L (21-32) 01/29/24 05:29 Anion Gap 8.1 mEq/L (5.0-15.0) 01/29/24 05:29 BUN 15 mg/dL (7-18) 01/29/24 05:29 Creatinine 0.70 mg/dL (0.70-1.30) 01/29/24 05:29 Est GFR (CKD-EPI) 103 ml/min (=/>90) 01/29/24 05:29 Glucose 162 mg/dL (74-106) H 01/29/24 05:29 POC Glucose 134 mg/dL (65-120) H 01/29/24 12:28 Calcium 9.4 mg/dL (8.5-10.1) 01/29/24 05:29 Magnesium 1.8 mg/dL (1.6-2.4) 01/29/24 05:29 Albumin 2.9 g/dL (3.4-5.0) L 01/29/24 05:29 Prealbumin 14.7 mg/dL (20-40) L 01/29/24 05:29 Urine Color Light-yellow (Yellow) 01/28/24 19:50 Urine Clarity Clear (Clear) 01/28/24 19:50 Urine pH 7.0 (5.0-7.0) 01/28/24 19:50 Ur Specific [place] 1.021 (1.005-1.030) 01/28/24 19:50 Glucose (UA)(Auto) Negative (Negative) 01/28/24 19:50 Urine Ketones Negative (Negative) 01/28/24 19:50 Urine Blood Trace (Negative) H 01/28/24 19:50 Urine Nitrite Negative (Negative) 01/28/24 19:50 Urine Bilirubin Negative (Negative) 01/28/24 19:50 Urine Urobilinogen 1+ (Normal) H 01/28/24 19:50 Ur Leukocyte Esterase Negative [place]/uL (Negative) 01/28/24 19:50 Urine RBC 5-10 /HPF (None Seen) H 01/28/24 19:50 Urine WBC <5 /HPF (<5) 01/28/24 19:50 Ur Squamous Epith Cells None seen /HPF (None Seen) 01/28/24 19:50 U Non-Squamous Epi Cells <5 /HPF (None Seen) 01/28/24 19:50 Urine Bacteria None seen /HPF (<20) 01/28/24 19:50 Urine Culture Reflexed Not needed 01/28/24 19:50 Urine Total Protein Negative (Negative) 01/28/24 19:50 Weight: 347 lb 14.231 oz Closed Surgical Incision Present: Yes Physician Update: RW 250' with contact guard assist. Partial assist with curb. Rolling in bed is min assist. Max with lower body dressing with spinal precautions. Diabetic peripheral neuropathy. Summary: Patient's care plan and emt intermediate goals have been reviewed and revised as necessary. Please see the Rehabilitation Signature page for all necessary signatures.
[2024-01-29] MEDS ORDERED: HYDROCODONE/APAP 5/325 MG TAB PO PRN (14:54)
[2024-01-29] MEDS: TRAMADOL HCL 50 MG TAB PO SCH (19:07)
[2024-01-29] MEDS: GLUCERNA SHAKE 237 ML CAN PO SCH (19:08)
--- NOTE | 2024-01-29 23:03 | HP ---
Date of Admission: 01/28/2024 Time Of Service: 9 a.m. Chief Complaint: "I fell and broke my back." History Of Present Illness: Mr. Evans communicated best in [place], a feed handler was used, chart reviewed also and the patient's family, son and who were beside him. Mr. Evans is a 63-yea r-old patient with coronary artery disease, status post stents; hypertension; dyslipidemia; diabetes mellitus type 2; hyperthyroidism; morbid obesity; and peripheral neuropathy, who presented t [facility] after sustaining a mechanical fall. He was in the kitchen when he tripped and fell, landing on his back. He immediately felt pain in the mid back radi ating down the back. Imaging identified a T5-T6 acute fracture at vertebral level with possible liga mentous injury and Neurosurgery was consulted. The patient had cardiac evaluation. EKG showed eddie l sinus rhythm, no ST-T wave abnormalities. An echo showed a normal biventricular size and systolic function. Stress test showed a small area of moderate inferior nontransmural scar with ejection frac tion 57%. He was cleared for spinal surgery with acceptable cardiac immediate risks. He did tolerat e a percutaneous thoracic 3 to 8 posterior spinal fusion on 01/21. He did require IV pain medication s and was monitored following for any mentation changes. Neurosurgery signed off on 01/24. Blood pr essures were stable, put on a sliding scale for his diabetes and nephropathy. Aspirin was held for h is coronary artery stenting. He did require intravenous pain medications with a pain rating up to 8/ 10 on January 25, he had tachycardia on January 26, and his hemoglobin did trend down daily and increas ed from 8.8 to 9.3 on January 27. His prior level of functioning prior to the fall was independent wi activities of daily living, IADLs as well, did utilize a cane if necessary. However, due to his i njury, he is at minimum assistance for bed mobilization dem-st-irhcs, contact guard assistance for am bulation of 20 feet with a rolling walker and requires total assist for lower body dressing, maximum assistance for bathing, minimum assistance for upper body dressing. He has been medically cleared an d is now admitted to the inpatient rehabilitation unit for physical, occupational, and if need be spe ech therapy to help him return to his prior level of functioning and avoid rehospitalization. Past Medical History: As noted above. Also has diabetes mellitus; diabetic neuropathy; hypertension ; dyslipidemia; coronary artery disease, on an aspirin; morbid obesity. Allergies: NO KNOWN DRUG ALLERGIES. Medications: Tylenol 1000 mg every 8 hours as needed, Lipitor 20 mg at bedtime, duloxetine 10 mg per rectum daily for constipation, Colace 100 mg twice daily, Lovenox 60 mg subcutaneous every 12 hours, Glucerna shake 237 mL twice daily, glipizide 10 mg with breakfast, [place] 10/325 every 6 hours as nee ded. He had influenza vaccine. Mild insulin sliding scale. He has 2 patches of lidocaine applied t o the mid back daily, Prinivil 5 mg daily, metformin 1000 mg twice daily, Tapazole 10 mg daily, Robax in 1000 mg 3 times daily as needed, Lyrica 50 mg every 8 hours scheduled, Inderal 80 mg daily, Senoko t 8.6 mg twice daily, tramadol 50 mg twice daily scheduled. Laboratory Studies: White blood cell count 6.9, hemoglobin 9.7, platelets 257. Sodium 137, potassiu m 4.1, chloride 102, carbon dioxide 31, BUN 15, creatinine 0.7, glucose ranged from 133 to 204, calci um 9.4, magnesium 1.8, albumin 2.9, prealbumin 14.7. Urinalysis: Trace blood, 1+ urobilinogen, 5 to 10 red blood cells, otherwise negative in terms of esterase, nitrites, bacteria, and white blood vladislav ls are unremarkable. X-ray/imaging: A nuclear stress test on 01/19 shows normal hemodynamic adenosine test. Normal ECG a denosine test. Normal stress adenosine myocardial perfusion study. However, there was a small area of moderate inferior nontransmural scarring. The gated perfusion images show normal left ventricular function with ejection fraction of 37%. The echocardiogram on 01/17 showed normal biventricular siz e and normal systolic function. His brain CT scan and trauma series showed the acute hyperextension injury of T5-6 associated with disruption of the calcified anterior longitudinal ligament with ____ of T5 upon T6, fracture extending to the intervertebral disc space at T5-6 concerning for acute traumatic injury. There is also MRI of the thoracic spine that was recommended. There we re postsurgical changes noted, status post anterior abdominal wall hernia repair. There is scant non specific bilateral perinephric fat stranding. Portion of the right lateral abdomen is not included i n the field as noted by the radiologist. The impression was degraded image. No acute abnormalities of the cervical spine. Degenerative disk disease present throughout the cervical spine associated wi th posterior disk osteophyte complex. Family History: Noncontributory. Social History: No recent alcohol, tobacco, or IV drug use. Review of Systems: Mr. Evans reports pain maximum of 8/10 when he is getting in and out of bed as he twists in the c hair as well. Pain at best 3/10. Some mild myalgias, arthralgias. No rash. No psychiatric issues. No active genitourinary issues. No other positives on the systems review. Current Level Of Functioning: Currently, his eating is at a setup assistance level, oral hygiene set up assistance, toileting maximum assistance. Showering, bathing maximum assistance. Upper body dres sing maximum assistance. Lower body dressing is dependent. Donning and doffing footwear dependent. Rolling left to right to left maximum assistance. Sit to stand, lying to sitting on side of bed mod erate assistance. Transfer from bed to chair to a rolling walker and wheelchair moderate assistance. He did ambulate 20 feet with a rolling walker and moderate assistance. Physical Examination: Vital Signs: Blood pressure is 134/69, pulse 91, respiratory rate 18, temperature 97.2, oxygen satur ation 97%. Mr. Evans weighs 347 pounds, height 5 feet 6 inches, BMI over 50 with extreme obesity . HEENT: Otherwise, he is normocephalic, atraumatic. Sclerae anicteric. Oropharynx pink, moist. Neck: Supple. Chest: Clear. Abdomen: Obese. Extremities: Obese, but no clubbing, cyanosis, or edema. NEUROLOGIC: He has no focal cranial nerves; motor, coordination, sensory or gait deficits. Again, h e is pain limited because of the recent back fracture with his surgery. Rehab And Medical Assessment And Plan: Mr. Evans is admitted to the inpatient rehabilitation [facility] with impairment category 09, orthopedic, other. His impairment group code is 08.9 other orthopedic . His etiologic diagnosis; T5-T6 fracture, status post percutaneous thoracic 3 through 8 posterior s sterling fusion. His comorbidities are coronary artery disease, decreased mobility, decreased physical functioning, morbid obesity, diabetes mellitus, diabetic peripheral neuropathy, dyslipidemia, hyperte nsion, obstructive sleep apnea, and moderate pain along with hyperthyroidism, and Pickwickian syndrom e. Plan: He will have physical, occupational, and speech therapy for 3-1/2 hours, 5 of 7 days. We will continue with his current regimen including Lovenox for DVT prophylaxis, Glucerna for malnutrition, Dulcolax for maintaining good stool function, Lipitor for dyslipidemia, and Tylenol, [place], Ultram as needed for pain. He has Lyrica on board as well for pain, metformin for diabetes mellitus, Prinivil on board for hypertension along with the propranolol for his heart rate and tremor control. Muscle spasms treated with methocarbamol. Lidocaine patch at the surgical site in the back. Comorbidities That Are Impacting Rehabilitation: His multiple comorbidities that do impact rehabilit ation is morbid obesity making it very difficult for him to easily stand and ambulate, although he is beginning to do very well with his initial evaluation in rehab, did travel actually up to about 250 feet with min to mod assist. Transferring may pose a problem as there is pain in the back. He is no t recommended to have a brace, as he had surgery to stabilize this region. He does have diabetes cleeste litus. His risk of stroke is there with hypertension and dyslipidemia. Those are medicated with Parul enox, may consider adding a small that is aspirin 81 mg daily to further reduce the stroke risk. Rehab Specific Plan: Mr. Evans will have physical, occupational, and if need be speech therapy f or 3-1/2 hours, 5 of 7 days to improve his ability to transfer from bed to chair to toilet, to do lauren leting and showering, and to perform upper and lower body dressing, donning/doffing footwear, mobiliz e more than household distances, go up and down at least 10 steps with bilateral handrails and mobili ze wheelchair 250 feet minimum. In addition, we will have speech therapy as need be to help his cogn ition, function at independent level. Mr. Evans had a good understanding of the process of admission to the inpatient rehabilitation [facility] and how he will benefit from physical, occupational, and if need be speech therapy. He will have 24 hours a day, 7 days a week skilled rehabilitation nursing, daily physician evaluation and manageme nt for integrating his medical management and therapy and social service evaluation and management fo r discharge planning, home equipment, and followup therapy and primary care physician followup. If n eed be, additional help from hospitalist service will be consulted. Barriers To Discharge: Currently, his big barrier is excess weight with extreme obesity and high ris k of worsening injury if he a fall. Also, diabetes mellitus, blood pressure, dyslipidemia may become uncontrolled. Those will be carefully managed. Also, at high risk of stroke and small aspirin adde d. Length Of Stay: About 9 to 10 days. Disposition: Home with family and continued therapy depending on how he is doing outpatient. Prognosis: Good. Rehab Specific Goals: 1.Become independent with upper and lower body dressing and donning and doffing footwear. 2.Independently transfer from bed to chair to toilet to wheelchair. 3.Independently ambulate 250 feet minimum with rolling walker. 4.Independently go up and down 10 steps with bilateral handrails. 5.Independently propel a wheelchair 250 feet. 6.Independently perform all cognitive functioning. The above goals were reviewed with Mr. Evans and his family and they are in agreement. By signing this document, I acknowledge I personally performed a full physical examination on Mr. Her quezada no later than 24 hours after his admission to the inpatient rehabilitation facility and determ ined that he is able to tolerate the above course of treatment at an intensive level for a reasonable period of time. A detailed individualized plan of care for him will be completed by hospital day 4 based on the preadmission screen, history and physical and therapy evaluations. LAURA Voice ID: [id number]
[2024-01-30] MEDS: APIXABAN 5 MG TABLET PO SCH (09:58)
[2024-01-30] MEDS: LIDOCAINE 4% PATCH TOP SCH (10:02)
[2024-01-30] MEDS: MAGNESIUM OXIDE 400 MG TAB PO SCH (21:06)
[2024-01-31] MEDS: METFORMIN ER 500 MG TAB PO SCH (09:00)
[2024-01-31] MEDS: FERROUS SULFATE 325 MG TAB PO SCH (09:02)
[2024-01-31] MEDS: methocarbamoL 500 MG TAB PO PRN (14:54)
--- NOTE | 2024-02-02 00:03 | PN ---
Date of Progress Note: 02/01/2024 Time Of Service: 1:40 p.m. Subjective: Mr. Evans is resting in bed. He is happy with his therapy so far. Still, however, would like to improve even more. Review of Systems: He does not have any significant pain in the back, where there is a T5-T6 fracture. Objective: No fevers, chills, nausea, vomiting. No myalgias, arthralgias that are significant. No rash, headache, or other complaints. Physical Examination: Vital Signs: Blood pressure 120/59, pulse 80, respiratory rate 16, temperature 97.1, oxygen saturati on 96%. General: Again, Mr. Méndez is resting in bed. He has morbid obesity, BMI of 57. HEENT: Otherwise, he is normocephalic, atraumatic. Sclerae anicteric. Oropharynx is moist. Neck: Supple. Extremities: He has edema in the lower extremities and stasis changes in the lower extremities as we ll. Laboratory Studies: White blood cell count 6.9, hemoglobin 9.7, platelets 257. Sodium 137, potassiu m 4.1, chloride 102, carbon dioxide 31, BUN 15, creatinine 0.70, glucose ranged from 89 to 162. X-ray/imaging: No new x-rays or imaging. Medications: Tylenol 1000 mg every 8 hours as needed, [place] 5/325 every 4 hours as needed, Eliquis 5 mg twice daily, Lipitor 20 mg at bedtime, Dulcolax suppository 10 per rectum as needed for constipat ion, Colace 100 mg twice daily, Glucerna 237 mL twice daily, ferrous sulfate 325 mg daily, glipizide 10 mg at breakfast, mild insulin sliding scale, lidocaine patch 4% patch apply 2 topically daily as n eeded, Prinivil 5 mg daily, magnesium oxide 400 mg twice daily, Glucophage 500 mg twice daily, Tapazo le 10 mg daily, Robaxin 500 mg daily, Glycolax 17 g daily, Lyrica 50 mg every 8 hours, propranolol 80 mg daily that is the long-acting, Senokot 8.6 mg twice daily, tramadol 50 mg twice daily. Progress Made With Physical And Occupational Therapy: With his physical therapy, he did perform supi ne-to-sit transfers with minimum assistance for trunk and lower extremity elevation requirements. He did ambulate with a rolling walker 110 feet twice, 175 feet, 325 feet, and 200 feet with standby ass istance. With his occupational therapy, supervision for twq-yy-wfflx transfers, ambulated left-sided bed to right-sided bed with rolling walker. The therapist did speak with the son and discussed dura ble medical equipment needs and how he will continue to improve at home and issues of safety awarenes s. Mr. Evans is making great progress with physical and occupational therapy. Given his limitations , he is managing very well. Assessment: Mr. Evans is a 63-year-old patient in the rehabilitation unit with T5-T6 fracture, s tatus post percutaneous thoracic 3 through 8 posterior spinal fusion. He has decreased mobility, dec reased physical functioning, morbid obesity, diabetes mellitus, diabetic peripheral neuropathy, dysli pidemia, hypertension, obstructive sleep apnea, hypothyroidism, and Pickwickian syndrome. Plan: 1.Continue with physical and occupational therapy 3 hours a day, 5 of 7 days. 2.His list of medications will be continued. He does have tramadol as needed for pain, [place] and Ty lenol. Has Lyrica as well on board. He has Dulcolax and Senokot for stool softening. Muscle spasms addressed with methocarbamol. Lidocaine for additional help for pain control. Has DVT prophylaxis with Eliquis 5 mg twice daily, also for stroke risk reduction. He will continue again with physical and occupational therapy 3 hours a day, 5 of 7 days. MARCIANO/EDGAR Voice ID: [id number] Report ID: [id number]
--- NOTE | 2024-02-03 02:05 | PN ---
Date of Progress Note: 02/02/2024 Time Of Service: 1:40 p.m. Subjective: Mr. Evans is in a chair beside the bed, in no significant distress. Says he is feel ing better about his therapy. Still has ways to go. Review of Systems: No significant pain at his fracture site in the back. Mild pain in the legs. Physical Examination: Vital Signs: Blood pressure 140/66, pulse 77, respiratory rate 16, temperature 97, oxygen saturation 98%. General: Again, Mr. Evans is sitting in a chair. His son is in the room. He is in no acute dis tress. HEENT: Normocephalic, atraumatic. Sclerae anicteric. Oropharynx pink, moist. Neck: Supple. Extremities: He has stasis changes with some lichenification in the legs which is chronic. Laboratory Studies: Today, blood sugars range from 84 to 204. Progress Made With Physical And Occupational Therapy: With physical therapy today, he was able to do atjanx-ll-kaf transfers with minimum assistance, fzv-qo-blqvv transfers with contact guard assistanc e, xxofh-th-zavmo transfers with contact guard assistance. He ambulated 210 feet, 175 feet, and 265 feet with standby assistance using a rolling walker. Then, mobilized a wheelchair 75 feet twice inde pendently. He was able to go up and down 3 steps with bilateral handrails with standby assistance. With occupational therapy, independent for walking and shower transfer with the use of grab bars. Coles pervision for ambulating to the right side of bed, using a rolling walker and sitting at the edge of bed. Minimum assistance for bathing, assistance for cleaning buttocks after the bowel movements. Mr. Evans is making fair overall progress with his therapy, beginning to ambulate much better. P ain is managed. DVT prophylaxis on board. Stroke risk reduction covered and pain is covered. He is admitted with the T5-T6 fracture, status post surgical treatment of the fracture. He has comorbidit ies of diabetes mellitus, diabetic peripheral neuropathy, dyslipidemia, hypertension, obstructive sle ep apnea, hypothyroidism, Pickwickian syndrome, decreased mobility, decreased physical functioning, a nd the back was addressed by percutaneous transthoracic T3-T8 posterior spinal fusion. Plan: He will continue with physical and occupational therapy 3 hours a day, 5 times a week, and he continues with multiple comorbid condition medications as mentioned above including for DVT prophylax is, stroke risk reduction, for pain, stool softening, muscle relaxants, and insomnia. MARCIANO/EDGAR Voice ID: [id number] Report ID: [id number]
[2024-02-03] MEDS: POLYETHYL GLY 3350 17 GM/DOSE PO PRN (12:57)
[2024-02-03] MEDS ORDERED: FORMULATION-R RECTAL 57GM PR PRN (16:21)
[2024-02-03] MEDS: DOCUSATE NA/SENNA CONC 1 TAB PO SCH (19:38)
--- NOTE | 2024-02-03 20:39 | PN ---
Date of Progress Note: 02/03/2024 Time Of Service: 1:40 p.m. Subjective: Mr. Evans is in a chair beside his bed. He is happy with his therapy so far. Of co nguyenlucas, communicates mostly in [place]. Review of Systems: Some mild pain in the legs, of course where he has the significant venous stasis changes. He did hav e a T5 and T6 fracture that is addressed surgically. Does not require a brace. He has no known new complaints. Physical Examination: Vital Signs: Blood pressure 119/56, pulse 97, respiratory rate 16, temperature 97.1, oxygen saturati on 96%. General: Mr. Evans is resting in a chair between therapy sessions. HEENT: Appears normocephalic, atraumatic. Extremities: He has lichenification changes in the legs. Laboratory Studies: Blood sugars ranged from 113 to 157. X-ray/imaging: No new x-rays or imaging. Medications: His medications have been reviewed and remain unchanged. He does continue with medicat ion for hemorrhoids that is Preparation H. Progress Made With Physical And Occupational Therapy: Today with physical therapy, ambulated 150 fee t with a rolling walker, 150 feet with a rolling walker with setup assistance. Ueo-nv-onmcl with par tial assistance. With occupational therapy, independent nwi-yd-xvzwn transfers and did have educatio n on durable medical equipment. Worked on improving core strength. Assessment: Mr. Evans is a 63-year-old patient in rehabilitation unit with a T5-T6 fracture stat us post repair. He has decreased mobility, decreased physical functioning, morbid obesity, dyslipide niru, hypertension, obstructive sleep apnea, peripheral neuropathy, hypothyroidism, Pickwickian syndro me. Plan: He will continue with physical and occupational 3 hours a day, 5 days a week. He will have tr amadol for pain, Senokot for constipation, Inderal for heart rate control, Lyrica for neuropathic sixto n. Preparation H for hemorrhoids. Continue Robaxin for muscle spasms, metformin for his diabetes me llitus, magnesium oxide for muscle spasms, lidocaine patch for pain, Glucotrol added for diabetes, fe rrous sulfate for iron deficiency, Glucerna for malnutrition, Lipitor for dyslipidemia, Eliquis for D VT risk reduction and stroke risk reduction and [place] and Tylenol as needed for pain. LB/MODL Voice ID: [id number] Report ID: [id number]
[2024-02-04 06:36] LABS: Absolute Eosinophils 0.3 K/uL (0-0.5); Absolute Lymphocytes (CBC) 1.3 K/uL (0.7-4.9); Absolute Monocytes 0.6 K/uL (0.1-1.3); Absolute Neutrophil 5.2 K/uL (1.8-8.0); Basophils % 0.4 % (0-1.3); Eosinophils % 3.6 % (0-4.4); Hematocrit 32.2 % (39.6-49.0); Lymphocytes % 17.5 % (15.3-44.8); MCH 27.9 pg (27.0-35.0); MCHC 31.1 g/dL (32.0-36.0); MCV 89.6 fL (80-100); Monocytes % 8.5 % (3.3-12.3); Platelets 329 thou/uL (152-406); RBC Red Blood Cell Count 3.59 M/uL (4.33-5.43)
[2024-02-04 06:56] LABS: Albumin 3.2 g/dL (3.4-5.0); Anion Gap 6.7 mEq/L (5.0-15.0); Magnesium 2.4 mg/dL (1.6-2.4); Potassium 4.7 mEq/L (3.5-5.1); Prealbumin 20.9 mg/dL (20-40)
--- NOTE | 2024-02-04 16:18 | RAD REPORT ---
Extremity Venous Uni Ltd CLINICAL INDICATION: Male, 63 years old.R/O LLE DVT TECHNIQUE: Complete duplex sonography of the lower extremity veins was performed of the affected limb . The examination included compression for vein patency, color Doppler imaging and flow augmentation in response to distal compression of the distal external iliac, common femoral, femoral, popliteal, peroneal, tibial and great saphenous veins. [id number]. COMPARISON: No prior exams FINDINGS: Duplex sonography imaging demonstrates all deep examined to be fully compressible with spontaneous, p hasic and augmented flow in the affected limb. IMPRESSION: No evidence of deep venous thrombosis in the left lower extremity.
[2024-02-04] MEDS: PREGABALIN 50 MG CAP PO SCH (19:57)
--- NOTE | 2024-02-04 22:21 | PN ---
Date of Progress Note: 02/04/2024 Time Of Service: 1:20 p.m. Subjective: Mr. Evans is resting in bed. He did say there was some slight increase in his pain in the back and legs, but he is doing all the therapy. He is happy so far with his progress and he i s actually going to be discharged in the morning to continue therapy. Review of Systems: Again, mild pain bilaterally in leg and in his back where there is T5-T6 fracture that is addressed s urgically. Physical Examination: Vital Signs: Blood pressure 109/75, pulse 69, respiratory rate 17, temperature 97.7, oxygen saturati on 97%. General: Mr. Evans again is resting comfortably in bed. He does communicate much better in [place] d[place]. Family is at the bedside. He has no new findings. There are venous stasis changes in the legs . He has morbid obesity and he is otherwise doing very well. Laboratory Studies: White blood cell count 7.5, hemoglobin 10.0, platelets 329. Sodium 136, potassi um 4.7, chloride 101, BUN 18, creatinine 0.87. His glucose ranged from 80 to 146, calcium 9.5, magne sium 2.4, albumin 3.2, prealbumin 20.9. X-ray/imaging: He did report some slight pain in the left calf area. There will be a pain patch amanda elisabeth there. Gabapentin adjusted. The Doppler study showed no evidence of deep vein thrombus in the l eft lower extremity. Progress Made With Physical And Occupational Therapy: Today with physical therapy, he was able to do qgf-hr-hhddz, bilateral lower extremities push-off 20 seconds. He did transfer from [facility] ng a rolling walker with independence. He was able to ambulate 250 feet with a rolling walker with i ndependence and another 150 feet performed in afternoon with independence. He was able to go up and down 12 steps with bilateral handrails with supervision. He was able to go up and down to curb with a rolling walker and was able to ambulate 80 feet with a rolling walker while outside. With his occu pational therapy, independent with qho-qu-nkjyw transfers, ambulated from room to toilet with a wheel chair done independently, lower body dressing independent, donning and doffing shorts independent, AD Ls done with independence, and he will be discharged home with continuing therapy via Home Health. Assessment: Mr. Evans is a 63-year-old patient with a T5-T6 compression fracture. He has decrea sed mobility, decreased physical functioning, dyslipidemia hypertension, morbid obesity, obstructive sleep apnea, peripheral neuropathy, hypothyroidism, Pickwickian syndrome. Plan: 1.He will continue with physical and occupational therapy 3 hours a day, 5 of 7 days a week. 2.His medication including Lyrica was adjusted. He has Preparation H for hemorrhoids, Robaxin for m uscle spasms, and metformin for diabetes mellitus. He has pain patch in the left calf for his calf p ain, likely related to mild neurogenic claudication. He will be discharged in the morning to continu e therapy. Follow up with primary care physician as scheduled. LAURA Voice ID: [id number] Report ID: [id number]
[2024-02-05 06:29] VITALS: TEMP 97.4
[2024-02-05 12:34] VITALS: BP 115/55
== END 2024-02-05 13:20 | disposition home health service (06) | DRG 560 ==
LOC: 5TH 17:50
PROVIDERS: ADMIT Psychiatry & Neurology Neurology with Special Qualifications in Child Neurology; ATTEND Psychiatry & Neurology Neurology with Special Qualifications in Child Neurology
DX: Z47.89 Encounter for other orthopedic aftercare (principal); E46 Unspecified protein-calorie malnutrition; E66.2 Morbid (severe) obesity with alveolar hypoventilation; E61.1 Iron deficiency; I25.10 Atherosclerotic heart disease of native coronary artery without angina pectoris; E11.42 Type 2 diabetes mellitus with diabetic polyneuropathy; E78.5 Hyperlipidemia, unspecified; I10 Essential (primary) hypertension; E05.90 Thyrotoxicosis, unspecified without thyrotoxic crisis or storm; E03.9 Hypothyroidism, unspecified
CPT/HCPCS: 36415; 80048; 81001; 82040; 82947; 83735; 84134; 85025; 87086; 87088; 93971; 97110; 97116; 97161; 97165; 97530; 97542; J1650; J2001